=== PATIENT | male | born 1955 | race Caucasian/White ===

== ENCOUNTER 2022-02-03 15:19 | Inpatient (IN) | payer OTHER, SELFPAY ==
--- NOTE | ~2022-02-03 | CT_ITS ---
EXAMINATION: CT CHEST WITHOUT CONTRAST CLINICAL INFORMATION: Fall. Abnormal chest x-ray. COMPARISON: Previous chest x-ray from earlier the same day TECHNIQUE: Multidetector volumetric CT imaging of the chest was done. Axial MIP volume rendering provided. Sagittal and coronal reformatted images were obtained. This CT examination was performed using dose optimization techniques as appropriate, variously including the following: *Automated exposure control *Adjustment of mA and/or kV according to patient size (this includes techniques or standardized protocols for targeted exams where dose is matched to indication/reason for exam; i.e. extremities or head) *Use of iterative reconstruction technique DLP: 290 mGy-cm FINDINGS: CODING SPEC: Cavitary lesion right upper lobe LUNGS: There is a 5 x 8 x 8 cm cavitary lesion in the posterior segment of the right upper lobe. This has more peripheral consolidation and groundglass attenuation. There are adjacent semisolid nodules in the more anterior right upper lobe, largest measuring 1 cm. There are smaller semisolid nodules in the right middle and right lower lobes. The lungs are otherwise clear. MEDIASTINUM: There are no enlarged mediastinal lymph nodes. The heart does not appear enlarged. There is mild coronary artery calcification. There is no pericardial effusion. PLEURA: There is no pleural effusion. No pleural mass or thickening. AXILLA: No lymphadenopathy. UPPER ABDOMEN: Unremarkable. OSSEOUS STRUCTURES: There are degenerative changes of the spine. No fracture. CT/CT chest wo con IMPRESSION: 5 x 8 x 8 cm cavitary lesion in the posterior segment of the right upper lobe. Multiple smaller semisolid right lung nodules. Infectious, inflammatory and neoplastic processes should be considered. In particular, TB should be excluded. Fleischner guidelines were followed.
--- NOTE | ~2022-02-03 | CT_ITS ---
EXAMINATION: CT ABDOMEN AND PELVIS WITHOUT CONTRAST CLINICAL INFORMATION: Elevated liver function tests and fever. History of fall. COMPARISON: None TECHNIQUE: Multidetector volumetric imaging was performed from the superior aspect of the liver through the pubic symphysis. Sagittal and coronal reformatted images were obtained on the technologist's workstation. This CT examination was performed using dose optimization techniques as appropriate, variously including the following: *Automated exposure control *Adjustment of mA and/or kV according to patient size (this includes techniques or standardized protocols for targeted exams where dose is matched to indication/reason for exam; i.e. extremities or head) *Use of iterative reconstruction technique DLP: 601 mGy-cm FINDINGS: LIVER, GALLBLADDER, AND BILIARY TREE: The liver is normal in size, shape, and attenuation. No focal hepatic lesion or biliary ductal dilatation is present. The gallbladder is unremarkable with no evidence of radiopaque gallstones, gallbladder wall thickening, or obvious pericholecystic inflammatory changes. PANCREAS: Unremarkable. SPLEEN: Unremarkable. ADRENAL GLANDS: Unremarkable. KIDNEYS AND URETERS: The kidneys are normal in size, shape, and attenuation. No hydronephrosis, hydroureter, or calculi seen. No perinephric stranding. BLADDER: Unremarkable. GASTROINTESTINAL TRACT: The small and large bowel are otherwise unremarkable. The appendix is unremarkable. ABDOMINAL WALL: There is a small umbilical hernia containing fat. LYMPH NODES: Normal. VASCULAR: Unremarkable. PELVIC VISCERA: The prostate gland is slightly enlarged measuring 4 x 5 cm. OSSEOUS STRUCTURES: There are degenerative changes of the spine. There is ossification seen in the left iliopsoas tendon. CT/CT abdomen pelvis wo con IMPRESSION: No acute findings. Slightly enlarged prostate gland. Fleischner guidelines were followed.
--- NOTE | ~2022-02-03 | XR_ITS ---
EXAMINATION: XR CHEST CLINICAL INFORMATION: Fall COMPARISON: Previous chest x-ray October 2015 TECHNIQUE: Frontal view of the chest was obtained. FINDINGS: The cardiac and mediastinal contours are normal. There is a 9 cm cavitary lesion in the right upper lobe. The lungs are otherwise clear. There is no pleural effusion or pneumothorax. There are degenerative changes of the spine. XR/XR chest 1V IMPRESSION: 9 cm cavitary lesion in the right upper lobe. Differential would include infectious, inflammatory and neoplastic process.
--- NOTE | ~2022-02-03 | CT_ITS ---
EXAMINATION: CT ANGIOGRAM OF THE CHEST WITH AND WITHOUT CONTRAST (CT PULMONARY ANGIOGRAM FOR PE) CLINICAL INFORMATION: Reason for Exam PAIN, elevated ddimer COMPARISON: Previous chest x-ray and chest CT from yesterday TECHNIQUE: Prior to contrast administration, noncontrast localization images were obtained. Subsequently, multidetector volumetric imaging was performed from the thoracic inlet to below the diaphragms following the administration of 65 mL Omnipaque 350 intravenous contrast. No contrast reaction reported Sagittal, coronal, and MIP oblique sagittal reformatted images were obtained on the CT workstation, uploaded to PACS, and reviewed. This CT examination was performed using dose optimization techniques as appropriate, variously including the following: *Automated exposure control *Adjustment of mA and/or kV according to patient size (this includes techniques or standardized protocols for targeted exams where dose is matched to indication/reason for exam; i.e. extremities or head) *Use of iterative reconstruction technique Total exam dose-length product 575 mGy-cm FINDINGS: QUALITY OF STUDY/CONTRAST BOLUS: Satisfactory. PULMONARY ARTERIES: There is a solitary small subsegmental right upper lobe pulmonary embolism for example sagittal reconstructed image 77. No other pulmonary embolism is seen. The pulmonary arteries are normal in size. THORACIC AORTA: No aneurysm or dissection. LUNG: There is a large cavitary lesion in the posterior segment of the right upper lobe. This has peripheral consolidation and groundglass attenuation. There are small semisolid nodules in the more anterior right upper lobe and in the right middle and right lower lobes. This does not appear appreciably changed from yesterday's exam. The left lung is clear. There is mild paraseptal emphysema. PLEURA: New small right pleural effusion. No left pleural effusion or pneumothorax. MEDIASTINUM: Normal heart size. No pericardial effusion. No hilar or mediastinal lymphadenopathy. No evidence of septal bowing or right heart strain. CHEST WALL/AXILLA: No axillary or internal mammary lymphadenopathy. OSSEOUS STRUCTURES: No acute or suspicious osseous abnormality. Degenerative changes of the spine. UPPER ABDOMEN: Unremarkable. No reflux of contrast into the hepatic veins to suggest elevated right heart pressures. CT/CT angio chest PE protocol IMPRESSION: Small solitary subsegmental pulmonary embolism in the right upper lobe adjacent to the cavitary lesion. No change in large cavitary lesion in the posterior segment of the right upper lobe with peripheral consolidation and groundglass attenuation. No change in small semisolid right pulmonary nodules. New small right pleural effusion.. VTE: positive Findings are communicated to Dr. Webb by telephone on 02/04/2022 at 12:58 PM
--- NOTE | ~2022-02-03 | US_ITS ---
EXAMINATION: US ABDOMEN LIMITED CLINICAL INFORMATION: Elevated liver function tests and fever. COMPARISON: Previous CT of the abdomen and pelvis from earlier the same day TECHNIQUE: Real-time imaging of the gallbladder FINDINGS: The gallbladder is normal in size. There is a 5 mm echogenic density adjacent to the gallbladder wall that does not move or shadow probably representing a small gallbladder wall polyp. No definite gallstones are seen. The gallbladder wall is normal. There is no pericholecystic fluid. The radiology ct technologist reports the patient is tender over the gallbladder. The common bile duct is normal in caliber measuring 0.5 cm. US/US abdomen limited IMPRESSION: Probable small gallbladder wall polyp.
--- NOTE | 2022-02-03 15:33 | ECG_ITS ---
Test Reason : SEPSIS Blood Pressure : / mmHG Vent. Rate : 102 BPM Atrial Rate : 102 BPM P-R Int : 140 ms QRS Dur : 140 ms QT Int : 372 ms P-R-T Axes : 059 048 022 degrees QTc Int : 484 ms Sinus tachycardia Right bundle branch block Abnormal ECG When compared with ECG of 09-NOV-2015 04:53, Right bundle branch block is now Present Referred By: Nabila Galeana Electronically Signed By:BETZAIDA ARMSTRONG
[2022-02-03 15:34] VITALS: BP 112/70; BP 127/73; PULSE 110; PULSE 120; RESP 29; TEMP 38.8; O2SAT 97; BMI 27.3
--- NOTE | 2022-02-03 15:35 | ED.FALL ---
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 Patient lives home alone with [employer] service, patient was found on the ground soaked in feces and urine seems patient had a mechanical fall last night and could not get himself up remained on the ground all night the next morning was found by [employer], patient decline headache, no neck pain, no CP, no SOB, no abdominal pain, no lower extremities pain or deformity. Patient is a poor historian history was obtained from EMS/[employer]. Patient declined subjective fever, no coughing, no urinary symptoms. Patient meeting criteria for SIRS which concerning of infectious process. Related Data Home Medications Medication Instructions Recorded Confirmed aspirin 81 mg tablet,delayed 1 tab PO BEDTIME 02/03/22 02/03/22 release atorvastatin 10 mg tablet 1 tab PO BEDTIME 02/03/22 02/03/22 cholecalciferol (vitamin D3) 50 1 cap PO DAILY 02/03/22 02/03/22 mcg (2,000 unit) capsule (Vitamin D3) docusate sodium 100 mg capsule 1 cap PO BID 02/03/22 02/03/22 glipizide 10 mg tablet 1 tab PO BID 02/03/22 02/03/22 lisinopril 5 mg tablet 1 tab PO DAILY 02/03/22 02/03/22 metformin 1,000 mg tablet 1 tab PO AC 02/03/22 02/03/22 omeprazole 20 mg capsule,delayed 1 cap PO DAILY 02/03/22 02/03/22 release polyvinyl alcohol 1.4 % eye drops 1 drp ophthalmic (eye) QID PRN Pain 02/03/22 02/03/22 sitagliptin 100 mg tablet (Januvia) 1 tab PO DAILY 02/03/22 02/03/22 tamsulosin 0.4 mg capsule 2 cap PO BEDTIME 02/03/22 02/03/22 tramadol 50 mg tablet 1 tab PO QID PRN severe pain 02/03/22 02/03/22 Allergies Allergy/AdvReac Type Severity Reaction Status Date / Time No Known Allergies Allergy Unverified 03/08/20 16:45 Review of Systems Review of Systems: All other systems are reviewed and are negative Constitutional: Reports as per HPI and Reports no additional constitutional complaints Eyes: Reports as per HPI and Reports no additional eye complaints Reports system reviewed and no additional complaints, except as documented Cardiovascular: Reports as per HPI and Reports no additional cardiovascular complaints Respiratory: Reports as per HPI and Reports no additional respiratory complaints Gastrointestinal: Reports as per HPI and Reports no additional gastrointestinal complaints Genitourinary: Reports no additional female genitourinary complaints Musculoskeletal: Reports no additional musculoskeletal complaints Skin/Breast: Reports system reviewed and no additional complaints, except as docu Psychiatric: Reports no additional psychiatric complaints Endocrine: Reports no additional endocrine complaints Hematologic/Lymphatic: Reports no additional hematologic/lymphatic complaints Allergic/Immunologic: Reports no additional allergic/immunologic complaints Reports system reviewed and no additional complaints, except as documented and Reports Abnormal speech present [facility] Social History Social History Advance Directives: No Advance Directives Information Provided: No Physical Exam Vital Signs: Vital Signs: Last Vital Signs Temp 101 F H 02/03/22 18:32 Pulse 108 H 02/03/22 18:32 Resp 18 02/03/22 18:32 BP 133/73 02/03/22 18:32 Pulse Ox 97 02/03/22 18:32 O2 Del Method 02/03/22 18:32 BMI result Body Mass Index 27.3 Vital signs have been reviewed as appeared to be correct. Blood pressure normal. Heart rate normal. Respiration rate normal. Temperature normal. Oxygen saturation normal. Appearance: Alert. Oriented X3. No acute distress. Head: Normal external exam. Normocephalic. Atraumatic. No Estevez signs noted. No raccoon eyes noted Eyes: PERRLA. EOMI. Conjunctiva and sclera normal. Eyelids normal. ENT: TM's Normal. Pharynx normal. Uvula midline. Moist mucous membranes. No trismus noted. No drooling noted. No muffled voice noted. Neck: Normal inspection. Neck supple. FROM. No adenopathy. Thyroid Normal. No meningeal signs. No neck mass noted. CVS: Normal heart rate and rhythm. Heart sound normal. No murmurs noted. Pulses normal throughout. Respiratory: No respiratory distress. Painless inspiration. Breath sounds normal. No wheezes/rales/rhonchi noted. Chest nontender. No accessory muscle usage noted or decreased air movement noted. Area of ecchymosis on the right chest wall which is not tender, hip no deformity under. Abdomen: Soft and nontender. Bowel sounds normal in all 4 quadrants. No distention noted. No organomegaly noted. No visible injury noted. Back: No CVA tenderness. Full range of motion noted. Skin: Skin warm and dry. Normal skin color. Normal skin turgor. No rashes/lesions/lacerations noted. Extremities: No lower extremity edema. Extremities exhibit normal range of motion. Extremities nontender. Neuro: Oriented X 3. Cranial nerve exam: II-XII are grossly intact No motor deficit. No sensory deficit. Reflexes normal. Course Course Course Narrative: 66-year-old male presented after found on the ground, patient initially met SIRS criteria. 1. Cavitary lesion on the right upper lung concerning of TB or staph pneumonia. Consider air bone infection isolation with negative Room pressure, cover with Zosyn and vancomycin for possible staph pneumonia.. 2. Patient meet criteria for sepsis. 3. UTI consider ceftriaxone coverage. 4. Rhabdomyolysis consider IV hydration. MDM - Fall Lab Data Attestation: I reviewed the patient's lab results. Result diagrams: 02/03/22 16:18 02/03/22 16:18 Labs: Lab Results 02/03/22 02/03/22 02/03/22 Range/Units 16:18 16:18 16:18 WBC 16.4 H (4.8-10.8) X10*3/uL RBC 4.71 (4.60-5.80) X10*6/uL Hgb 14.1 (14.0-18.0) g/dl Hct 40.2 L (42.0-52.0) % MCV 85.4 (80.0-98.0) fL MCH 29.9 (27.0-33.0) pg MCHC 35.1 (31.0-36.0) g/dl RDW 12.6 (11.0-16.0) % Plt Count 238 (160-400) X10*3/uL MPV 10.4 (9.4-12.4) fL Immature Gran % (Auto) Cancelled Neut % (Auto) Cancelled Lymph % (Auto) Cancelled Conway % (Auto) Cancelled Eos % (Auto) Cancelled Baso % (Auto) Cancelled Lymph # (Auto) Cancelled Conway # (Auto) Cancelled Eos # (Auto) Cancelled Baso # (Auto) Cancelled Abs Immat Gran (auto) Cancelled Absolute Neuts (auto) Cancelled Absolute Nucleated RBC 0.000 (0.0-0.012) X10*3/uL Nucleated RBC % (auto) 0.0 (0.0-0.2) /100WBC Neutrophils % (Manual) 63 (45-73) % Band Neutrophils % 21 H (3-5) % Lymphocytes % (Manual) 8 L (20-40) % Monocytes % (Manual) 4 (2-11) % Metamyelocytes % 4 % Abs Neuts (Manual) 13.8 H (2.0-8.3) X10*3/uL Lymphocytes # (Manual) 1.3 (1.2-4.9) X10*3/uL Monocytes # (Manual) 0.7 (0.1-1.2) X10*3/uL Metamyelocytes # 0.7 X10*3/uL Platelet Estimate NORMAL (NORMAL) Giant Platelets PRESENT Plt Morphology Comment NOTED RBC Morphology NORMAL Sodium 132 L (135-145) mmol/L Potassium 3.8 (3.3-5.1) mmol/L Chloride 93 L (96-108) mmol/L Carbon Dioxide 25 (22-29) mmol/L Anion Gap 18 (12-20) BUN 23 H (9-16) mg/dL Creatinine 1.40 (0.5-1.4) mg/dL Estim Creat Clear Calc 50.8 Estimated GFR 51 Random Glucose 324 H (60-115) mg/dL Calcium 8.9 (8.4-10.2) mg/dL Total Bilirubin 1.7 H (0.0-1.0) mg/dL Direct Bilirubin 0.9 H (0.0-0.5) mg/dL AST 38 H (5-37) U/L ALT 23 (0-40) U/L Alkaline Phosphatase 90 (39-117) U/L Total Creatine Kinase 1236 H (38-174) U/L Troponin I High Sens 15.7 (<3.5-35.0) ng/L B-Natriuretic Peptide (<100) pg/mL Total Protein 7.5 (6.5-8.0) g/dL Albumin 4.0 (3.5-5.0) g/dL Lipase 5 L (8-78) U/L Urine Color Urine Appearance Urine pH (5.0-8.0) Ur Specific Gary (1.005-1.025) Urine Protein (NEG-TRACE) MG/DL Urine Glucose (UA) (NEG) MG/DL Urine Ketones (NEG) MG/DL Urine Blood (NEG) Urine Nitrite (NEG) Ur Leukocyte Esterase (Negative) Urine RBC (0) /HPF Urine WBC (0-4) /HPF Ur Squamous Epith Cells /LPF Urine Bacteria /LPF COVID-19 ([facility]DO) (Negative) COVID-19 Clin Com 02/03/22 02/03/22 02/03/22 Range/Units 16:18 16:18 17:51 WBC (4.8-10.8) X10*3/uL RBC (4.60-5.80) X10*6/uL Hgb (14.0-18.0) g/dl Hct (42.0-52.0) % MCV (80.0-98.0) fL MCH (27.0-33.0) pg MCHC (31.0-36.0) g/dl RDW (11.0-16.0) % Plt Count (160-400) X10*3/uL MPV (9.4-12.4) fL Immature Gran % (Auto) Neut % (Auto) Lymph % (Auto) Conway % (Auto) Eos % (Auto) Baso % (Auto) Lymph # (Auto) Conway # (Auto) Eos # (Auto) Baso # (Auto) Abs Immat Gran (auto) Absolute Neuts (auto) Absolute Nucleated RBC (0.0-0.012) X10*3/uL Nucleated RBC % (auto) (0.0-0.2) /100WBC Neutrophils % (Manual) (45-73) % Band Neutrophils % (3-5) % Lymphocytes % (Manual) (20-40) % Monocytes % (Manual) (2-11) % Metamyelocytes % % Abs Neuts (Manual) (2.0-8.3) X10*3/uL Lymphocytes # (Manual) (1.2-4.9) X10*3/uL Monocytes # (Manual) (0.1-1.2) X10*3/uL Metamyelocytes # X10*3/uL Platelet Estimate (NORMAL) Giant Platelets Plt Morphology Comment RBC Morphology Sodium (135-145) mmol/L Potassium (3.3-5.1) mmol/L Chloride (96-108) mmol/L Carbon Dioxide (22-29) mmol/L Anion Gap (12-20) BUN (9-16) mg/dL Creatinine (0.5-1.4) mg/dL Estim Creat Clear Calc Estimated GFR Random Glucose (60-115) mg/dL Calcium (8.4-10.2) mg/dL Total Bilirubin (0.0-1.0) mg/dL Direct Bilirubin (0.0-0.5) mg/dL AST (5-37) U/L ALT (0-40) U/L Alkaline Phosphatase (39-117) U/L Total Creatine Kinase (38-174) U/L Troponin I High Sens (<3.5-35.0) ng/L B-Natriuretic Peptide 33 (<100) pg/mL Total Protein (6.5-8.0) g/dL Albumin (3.5-5.0) g/dL Lipase (8-78) U/L Urine Color YELLOW Urine Appearance HAZY Urine pH 5.5 (5.0-8.0) Ur Specific Gary >= 1.030 H (1.005-1.025) Urine Protein 30 (1+) H (NEG-TRACE) MG/DL Urine Glucose (UA) >=1000 H (NEG) MG/DL Urine Ketones 15 (NEG) MG/DL Urine Blood Large (3+) H (NEG) Urine Nitrite Negative (NEG) Ur Leukocyte Esterase Trace H (Negative) Urine RBC 1-4 (0) /HPF Urine WBC 50-75 H (0-4) /HPF Ur Squamous Epith Cells 1+ /LPF Urine Bacteria 3+ /LPF COVID-19 ([facility]VALDO) Negative (Negative) COVID-19 Clin Com See Note Imaging Data Gallbladder ultrasound: Attestation: I personally reviewed and interpreted this imaging study as follows: Radiologist's impression: Probable small gallbladder wall polyp. Chest x-ray: Attestation: I personally reviewed and interpreted this imaging study as follows: Radiologist's impression: 9 cm cavitary lesion in the right upper lobe. Differential would include infectious, inflammatory and neoplastic process. ? Abdomen and pelvis CT: Attestation: I personally reviewed and interpreted this imaging study as follows: Radiologist's impression: No acute findings. Slightly enlarged prostate gland. CT scan - chest: Attestation: I personally reviewed and interpreted this imaging study as follows: Radiologist's impression: 5 x 8 x 8 cm cavitary lesion in the posterior segment of the right upper lobe. Multiple smaller semisolid right lung nodules. Infectious, inflammatory and neoplastic processes should be considered. In particular, TB should be excluded. ? Critical Care Time Critical Care Time Critical Care Time: Yes Total Critical Care Time: 60 Attestation: I spent 60 minutes providing critical care service to the patient, this including time spent at the bedside to evaluate the patient, reassess the patient, monitoring vital signs, review labs, and radiographic studies, counseling the patient/family, discussing the case with consultants, disposition the patient. Discharge Plan Discharge Clinical Impression: Rhabdomyolysis, Sepsis, Pneumonia, Acute UTI Patient Disposition: Admitted As Inpatient
[2022-02-03] MEDS: 0.9 % Sodium Chloride 2,052 ML 2052 ML IV (16:10)
[2022-02-03 16:23] VITALS: BP 106/63; PULSE 105; RESP 16; O2SAT 97
[2022-02-03 16:28] LABS: Hemoglobin 14.1 g/dl (14.0-18.0)
[2022-02-03] MEDS: Piperacillin Sodium/Tazobactam 3.375 GM in 0.9 % Sodium Chloride 50 ML IV ×2 (16:32→23:55)
[2022-02-03 16:33] LABS: Hematocrit 40.2 % (42.0-52.0); Mean Corpuscular HGB Conc 35.1 g/dl (31.0-36.0); Mean Corpuscular Hemoglobin 29.9 pg (27.0-33.0); Mean Corpuscular Volume 85.4 fL (80.0-98.0); Mean Platelet Volume 10.4 fL (9.4-12.4); Platelet Count 238 X10*3/uL (160-400); Red Blood Count 4.71 X10*6/uL (4.60-5.80); Red Cell Distribution Width 12.6 % (11.0-16.0); White Blood Count 16.4 X10*3/uL (4.8-10.8)
--- NOTE | 2022-02-03 16:37 | PC.NURSE ---
patient assessed with the use of medical translator . alert to self and place . pearrla , sclera yellow . skin warm dry and appears dusky . bruising noted under right breast area from patient reported fall . heart rate tachycardic at 107 . lungs clear . abdomen soft non tender . positive bowel sounds throughout abdomen . 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 vitals placed patient within sepsis alert which was called by provider at 1556 . all labs drawn and sent including germain sets of cultures . EKG obtained . Fluids and ABX hung as ordered . patient aware of plan of care .
[2022-02-03 16:48] LABS: COVID-19 Test Negative (Negative)
[2022-02-03 16:51] LABS: B Type Natriuretic Peptide 33 pg/mL (<100); Troponin-I High Sensitivity 15.7 ng/L (<3.5-35.0)
[2022-02-03 16:52] LABS: Alanine Aminotransferase 23 U/L (0-40); Alkaline Phosphatase 90 U/L (39-117); Anion Gap 18 (12-20); Aspartate Amino Transferase 38 U/L (5-37); Bilirubin Direct 0.9 mg/dL (0.0-0.5); Bilirubin Total 1.7 mg/dL (0.0-1.0); Blood Urea Nitrogen 23 mg/dL (9-16); Calcium 8.9 mg/dL (8.4-10.2); Carbon Dioxide 25 mmol/L (22-29); Chloride 93 mmol/L (96-108); Creatinine Clr Calc Pharmacy 50.8; Estimated Glomerular Filt Rate 51; Glucose Random 324 mg/dL (60-115); Lipase 5 U/L (8-78); Potassium 3.8 mmol/L (3.3-5.1); Sodium 132 mmol/L (135-145); Total Protein 7.5 g/dL (6.5-8.0)
[2022-02-03 17:07] LABS: Neutrophils Percent Manual 63 % (45-73)
[2022-02-03 17:10] LABS: Band Neutrophils Percent 21 % (3-5); Lymphocytes Absolute Manual 1.3 X10*3/uL (1.2-4.9); Lymphocytes Percent Manual 8 % (20-40); Metamyelocytes Absolute 0.7 X10*3/uL; Metamyelocytes Percent 4 %; Monocytes Absolute Manual 0.7 X10*3/uL (0.1-1.2); Monocytes Percent Manual 4 % (2-11); Neutrophils Absolute Manual 13.8 X10*3/uL (2.0-8.3)
[2022-02-03 17:11] LABS: Giant Platelet PRESENT; Platelet Estimate NORMAL (NORMAL); Platelet Morphology Comment NOTED; RBC Morphology NORMAL
[2022-02-03 17:56] LABS: Appearance Urine HAZY; Color Urine YELLOW; Glucose Urine UA >=1000 MG/DL (NEG); Leukocyte Esterase Urine Trace (Negative); Nitrite Urine Negative (NEG); PH 5.5 (5.0-8.0); Specific Gravity - Urine >= 1.030 (1.005-1.025); Urine Blood Large (3+) (NEG); Urine Ketones 15 MG/DL (NEG); Urine Protein 30 (1+) MG/DL (NEG-TRACE)
[2022-02-03 18:02] LABS: Bacteria Urine 3+ /LPF
[2022-02-03 18:03] LABS: Squamous Epithelial Cell Urine 1+ /LPF
[2022-02-03 18:06] LABS: WBC Urine 50-75 /HPF (0-4)
[2022-02-03] MEDS: Acetaminophen 325 MG TABLET 650 MG PO (18:25)
--- NOTE | 2022-02-03 18:31 | PHA.MEDREC ---
Pharmacy Consult ? Medication Reconciliation Pharmacy has completed the medication reconciliation. Patient does not know medications. Use Med[facility] at [facility]. Contacted Pharmacy for updated list. Estephania Lorenzo, ZohraD
[2022-02-03 18:32] VITALS: BP 133/73; PULSE 108; RESP 18; TEMP 38.3; O2SAT 97
--- NOTE | 2022-02-03 18:44 | PC.NURSE ---
pt's sister twan ([phone]) [place] [facility] [place] was updated on pt status.
--- NOTE | 2022-02-03 21:10 | PM.IMHP ---
History of Present Illness Date of Service: 02/03/22 Chief Complaint: Gen weakness 66-year-old male with a past medical history of hypertension, hyperlipidemia, diabetes, BPH, chronic bilateral lower extremity weakness secondary to work related injury- wheelchair-bound presented to the hospital today with a chief complaint of generalized weakness. Patient reported that over the past 1-2 weeks he has been having generalized weakness, has not been eating well. Denies any fevers. Reports having dry cough. Denies any abdominal pain nausea vomiting or urinary frequency urgency or dysuria. Denies any chest pain or palpitations. Denies any recent travel or sick contacts. Patient denies any night sweats or weight loss. Mentions that yesterday he was trying to get to the bathroom, fell down and was not able to get up and stayed on the floor all night. Denies any head strike or loss of consciousness. Denies any back pain or hip pain. Mentions that he has a home [employer] services. Review of all other systems is negative except mentioned above ER course: Per ER team patient's exam was benign; CT abdomen showed no acute findings except for a large prostate; CT chest showed 5 into 18-8 cm cavitary lesion in the posterior segment of the right upper lobe. Multiple smaller semi-solid right lung nodules. Infectious versus neoplastic. On labs noted to have mildly elevated leukocytosis, mildly elevated CPK, abnormal urinalysis consistent with UTI. Patient was given empiric IV antibiotics. Admitted to the hospital for further management. [facility] Pertinent family history: Diabetes Social History Housing: Apartment Alcohol intake: unknown Patient Tobacco Use Status: Tobacco use Unknown service: No Current occupational status: disabled Meds Allergies Allergy/AdvReac Type Severity Reaction Status Date / Time No Known Allergies Allergy Unverified 03/08/20 16:45 Active Medications: Current Medications Acetaminophen (Acetaminophen 325 Mg Tablet) 650 mg PO Q6H PRN PRN Reason: Pain, Mild (Pain Scale 1-3) Aspirin (Aspirin Enteric Coated 81 Mg Tablet.Dr) 81 mg PO BEDTIME JULY Atorvastatin Calcium (Atorvastatin Calcium 10 Mg Tablet) 10 mg PO BEDTIME JULY Dextrose (Dextrose 50 % 25 Gm/50 Ml Syringe) 25 gm IVPUSH Q15M PRN; Protocol PRN Reason: per Hypoglycemia Standing Ord. Docusate Sodium (Docusate Sodium 100 Mg Capsule) 100 mg PO BID [facility] Enoxaparin Sodium (Enoxaparin Sodium 40 Mg/0.4 Ml Syringe) 40 mg SUBCUT Q24H [facility] Glucose (Glucose Gel 15 Gm Gel..Gram.) 15 gm PO Q15M PRN; Protocol PRN Reason: per Hypoglycemia Standing Ord. Vancomycin HCl 1,000 mg/ (Sodium Chloride) 270 mls @ 270 mls/hr IV Q12H [facility] Piperacillin Sod/Tazobactam (Sod 3.375 gm/ Sodium Chloride) 50 mls @ 100 mls/hr IV Q6H [facility] Insulin Human Lispro (Insulin Lispro 100 Unit/Ml 3 Ml Vial) 0 unit SUBCUT QIDACHS [facility]; Protocol Lisinopril (Lisinopril 5 Mg Tablet) 5 mg PO DAILY [facility]; Protocol Melatonin (Melatonin 3 Mg Tablet) 6 mg PO BEDTIME PRN PRN Reason: Insomnia Omeprazole (Omeprazole 20 Mg Capsule.Dr) 20 mg PO DAILY@0630 [facility] Pharmacy Consult (Consult Rx Perform Med Rec) 1 each MISCELLANE ONCE PRN PRN Reason: Consult order Pharmacy Consult (Consult Rx Vancomycin Dosing) 1 each MISCELLANE DAILY PRN PRN Reason: Consult order Senna (Sennosides 8.6 Mg Tablet) 17.2 mg PO BEDTIME PRN PRN Reason: Constipation Sodium Chloride (0.9 % Sodium Chloride Flush 3 Ml Syringe) 3 ml IVFLUSH QSHIFT [facility] Tamsulosin HCl (Tamsulosin Hcl 0.4 Mg Capsule) 0.8 mg PO BEDTIME [facility] Tramadol HCl (Tramadol Hcl 50 Mg Tablet) 50 mg PO QID PRN PRN Reason: severe pain Vitamin D (Cholecalciferol (Vitamin D3) 25 Mcg Tablet) 50 mcg PO DAILY [facility] Home Medications Medication Instructions Recorded Confirmed Last Taken Type aspirin 81 mg tablet,delayed 1 tab PO BEDTIME 02/03/22 02/03/22 Unknown History release atorvastatin 10 mg tablet 1 tab PO BEDTIME 02/03/22 02/03/22 Unknown History cholecalciferol (vitamin D3) 50 1 cap PO DAILY 02/03/22 02/03/22 Unknown History mcg (2,000 unit) capsule (Vitamin D3) docusate sodium 100 mg capsule 1 cap PO BID 02/03/22 02/03/22 Unknown History glipizide 10 mg tablet 1 tab PO BID 02/03/22 02/03/22 Unknown History lisinopril 5 mg tablet 1 tab PO DAILY 02/03/22 02/03/22 Unknown History metformin 1,000 mg tablet 1 tab PO AC 02/03/22 02/03/22 Unknown History omeprazole 20 mg capsule,delayed 1 cap PO DAILY 02/03/22 02/03/22 Unknown History release polyvinyl alcohol 1.4 % eye drops 1 drp ophthalmic (eye) QID PRN Pain 02/03/22 02/03/22 Unknown History sitagliptin 100 mg tablet (Januvia) 1 tab PO DAILY 02/03/22 02/03/22 Unknown History tamsulosin 0.4 mg capsule 2 cap PO BEDTIME 02/03/22 02/03/22 Unknown History tramadol 50 mg tablet 1 tab PO QID PRN severe pain 02/03/22 02/03/22 Unknown History Physical Exam Vital Signs and Narrative: Vital Signs: Last Vital Signs Temp 101 F H 02/03/22 18:32 Pulse 108 H 02/03/22 18:32 Resp 18 02/03/22 18:32 BP 133/73 02/03/22 18:32 Pulse Ox 97 02/03/22 18:32 O2 Del Method 02/03/22 18:32 BMI result Body Mass Index 27.3 Gen: Appears be in no acute distress HEENT: NCAT, Moist mucosa. Pulmonary: Mildly coarse breath sounds. CVS: Normal S1-S2 Abdomen: BS+, Soft, Nontender Extremities: Warm well perfused Neuro: Alert and awake. Oriented x3; sensations equal bilaterally; strength 2/5 in bilateral lower extremities-chronic per patient. Results Labs CBC and Chem 7: 02/05/22 08:53 02/08/22 08:09 Labs: Laboratory Results - last 24 hr 02/03/22 02/03/22 02/03/22 16:18 16:18 16:18 MCV 85.4 MCH 29.9 MCHC 35.1 RDW 12.6 Plt Count 238 MPV 10.4 Immature Gran % (Auto) Cancelled Neut % (Auto) Cancelled Lymph % (Auto) Cancelled Giles % (Auto) Cancelled Eos % (Auto) Cancelled Baso % (Auto) Cancelled Lymph # (Auto) Cancelled Giles # (Auto) Cancelled Eos # (Auto) Cancelled Baso # (Auto) Cancelled Abs Immat Gran (auto) Cancelled Absolute Neuts (auto) Cancelled Absolute Nucleated RBC 0.000 Nucleated RBC % (auto) 0.0 Neutrophils % (Manual) 63 Band Neutrophils % 21 H Lymphocytes % (Manual) 8 L Monocytes % (Manual) 4 Metamyelocytes % 4 Abs Neuts (Manual) 13.8 H Lymphocytes # (Manual) 1.3 Monocytes # (Manual) 0.7 Metamyelocytes # 0.7 Platelet Estimate NORMAL Giant Platelets PRESENT Plt Morphology Comment NOTED RBC Morphology NORMAL Anion Gap 18 Estim Creat Clear Calc 50.8 Estimated GFR 51 Random Glucose 324 H Calcium 8.9 Total Bilirubin 1.7 H Direct Bilirubin 0.9 H AST 38 H ALT 23 Alkaline Phosphatase 90 Total Creatine Kinase 1236 H B-Natriuretic Peptide 33 Total Protein 7.5 Albumin 4.0 Lipase 5 L Urine Color Urine Appearance Urine pH Ur Specific Kopperl Urine Protein Urine Glucose (UA) Urine Ketones Urine Blood Urine Nitrite Ur Leukocyte Esterase Urine RBC Urine WBC Ur Squamous Epith Cells Urine Bacteria COVID-19 ([facility]) COVID-19 Clin Com 02/03/22 02/03/22 16:18 17:51 MCV MCH MCHC RDW Plt Count MPV Immature Gran % (Auto) Neut % (Auto) Lymph % (Auto) Giles % (Auto) Eos % (Auto) Baso % (Auto) Lymph # (Auto) Giles # (Auto) Eos # (Auto) Baso # (Auto) Abs Immat Gran (auto) Absolute Neuts (auto) Absolute Nucleated RBC Nucleated RBC % (auto) Neutrophils % (Manual) Band Neutrophils % Lymphocytes % (Manual) Monocytes % (Manual) Metamyelocytes % Abs Neuts (Manual) Lymphocytes # (Manual) Monocytes # (Manual) Metamyelocytes # Platelet Estimate Giant Platelets Plt Morphology Comment RBC Morphology Anion Gap Estim Creat Clear Calc Estimated GFR Random Glucose Calcium Total Bilirubin Direct Bilirubin AST ALT Alkaline Phosphatase Total Creatine Kinase B-Natriuretic Peptide Total Protein Albumin Lipase Urine Color YELLOW Urine Appearance HAZY Urine pH 5.5 Ur Specific Kopperl >= 1.030 H Urine Protein 30 (1+) H Urine Glucose (UA) >=1000 H Urine Ketones 15 Urine Blood Large (3+) H Urine Nitrite Negative Ur Leukocyte Esterase Trace H Urine RBC 1-4 Urine WBC 50-75 H Ur Squamous Epith Cells 1+ Urine Bacteria 3+ COVID-19 ([facility]) Negative COVID-19 Clin Com See Note Imaging Radiologist's Impressions: Impressions Chest X-Ray 02/03/22 17:16 IMPRESSION: 9 cm cavitary lesion in the right upper lobe. Differential would include infectious, inflammatory and neoplastic process. Abdomen/Pelvis CT 02/03/22 17:27 IMPRESSION: No acute findings. Slightly enlarged prostate gland. Fleischner guidelines were followed. Chest CT 02/03/22 17:27 IMPRESSION: 5 x 8 x 8 cm cavitary lesion in the posterior segment of the right upper lobe. Multiple smaller semisolid right lung nodules. Infectious, inflammatory and neoplastic processes should be considered. In particular, TB should be excluded. Fleischner guidelines were followed. Abdomen Ultrasound 02/03/22 17:33 IMPRESSION: Probable small gallbladder wall polyp. Assessment and Plan (1) Acute UTI: Status: Acute (2) Cavitary lesion of lung: Status: Acute Plan 66-year-old male with a past medical history of hypertension, hyperlipidemia, diabetes, BPH, chronic bilateral lower extremity weakness secondary to work related injury- wheelchair-bound presented to the hospital today with a chief complaint of generalized weakness. Noted to have following conditions UTI: Continue ceftriaxone. Follow up cultures. Cavitary lung lesion: Question infectious versus neoplastic. Patient on able precautions to rule out TB. Id consult for further recommendations. Patient mildly hypoxic-placed on supplemental oxygen. D-dimer elevated. Will obtain CT angio chest Multiple pulmonary lung nodules: Will consult Oncology. History of diabetes: Insulin sliding scale . Hold home metformin, citalopram, glipizide. History of BPH: Continue home Flomax History of hypertension/hyperlipidemia: Continue home aspirin, statin, lisinopril DVT prophylaxis: Lovenox Code status: Full code Quality Stroke Does the patient have a stroke diagnosis?: No VTE Prior VTE?: No VTE Risk Level:: Medical - moderate - high VTE Device Contraindication: Treatment Not Indicated VTE Drug Contraindication: N/A - Med Ordered
--- NOTE | 2022-02-03 21:23 | PHA.PROG ---
Admission Date/Time: February 03, 2022 20:27 Indication: Pneumonia Weight in k.647 kg Adjusted body weight in K.6 kg [place] body weight in K.4 kg Obesity Dosing Indication % IBW: 119 % Serum Creatinine - Last 168 Hours 02/03/22 16:18 Creatinine 1.40 Estimated CrCl and GFR - Last 168 Hours 02/03/22 16:18 Estim Creat Clear Calc 50.8 Estimated GFR 51 Vancomycin Loading Dose: 2000 mg Current Vancomycin Dosing Regimen: 1500 mg Q24H Date and Time for next Vancomycin Level to be drawn: 02/06 Pharmacist Comments on Vancomycin Plan: Patient is schedule to receive loading dose vancomycin 2000 mg on 02/03 @ 2200 Maintenance dose vancomycin 1500 mg Q24H is scheduled to start 02/04 @ 2200. Expected AUC 552 with a trough of 16.5. Trough to be drawn prior to 4th dose Pharmacy to monitor renal function daily. Estephania Lorenzo PharmD Vancomycin dosing will take advantage of [employer] as a clinical decision support tool that uses Bayesian modeling to calculate individual patient's pharmacokinetic parameters and forecast the patient's drug concentration time course with the target goal AUC 24 range of 400 - 600 mg/L/hr.
[2022-02-03] MEDS: cefTRIAXone sodium 1 GM in 0.9 % Sodium Chloride 50 ML IV (22:44)
[2022-02-03 22:50] VITALS: BP 136/84; PULSE 100; RESP 24; TEMP 37.2; O2SAT 97
[2022-02-03] MEDS: Atorvastatin Calcium 10 MG TABLET PO (22:56)
[2022-02-03] MEDS: Tamsulosin HCL 0.4 MG CAPSULE 0.8 MG PO (22:56)
[2022-02-03] MEDS: Aspirin Enteric Coated 81 MG TABLET.DR PO (22:56)
[2022-02-03] MEDS: Enoxaparin Sodium 40 MG/0.4 ML SYRINGE SUBCUT (22:58)
[2022-02-03] MEDS: Docusate Sodium 100 MG CAPSULE PO (22:58)
[2022-02-03 23:38] VITALS: BP 129/91; PULSE 108; RESP 19; O2SAT 98
[2022-02-03 23:39] LABS: Glucose, Whole Blood 280 mg/dL (60-115)
[2022-02-03 23:40] LABS: Lactic Acid 1.6 mmol/L (0.5-2.0)
[2022-02-03] MEDS: Insulin Lispro 100 UNIT/ML 3 ML VIAL SUBCUT (23:55)
[2022-02-03 23:59] VITALS: BP 129/91; PULSE 109; RESP 32; TEMP 37.7; O2SAT 97
[2022-02-04] VITALS (11 sets, daily range): BP systolic 87–140; BP diastolic 36–79; PULSE 75–119; RESP 12–31; TEMP 36.7–37.8; O2SAT 94–99
[2022-02-04] MEDS: Acetaminophen 325 MG TABLET 650 MG PO (01:59)
--- NOTE | 2022-02-04 02:24 | PC.NURSE ---
Notified Raul Martínez MD re: pt.'s progressive tachycardia to one-teens and elevated respitatory rate. ordering D-dimer
[2022-02-04] MEDS: 0.9 % Sodium Chloride 1,000 ML 100 ML IVCONT ×2 (02:43→13:37)
--- NOTE | 2022-02-04 02:54 | PC.NURSE ---
Labs collected and sent as ordered
[2022-02-04 02:59] LABS: Hematocrit 33.1 % (42.0-52.0); Hemoglobin 11.9 g/dl (14.0-18.0); Mean Corpuscular Hemoglobin 30.4 pg (27.0-33.0); Mean Corpuscular Volume 84.7 fL (80.0-98.0); Mean Platelet Volume 9.9 fL (9.4-12.4); Platelet Count 199 X10*3/uL (160-400); Red Blood Count 3.91 X10*6/uL (4.60-5.80); Red Cell Distribution Width 12.7 % (11.0-16.0); White Blood Count 11.9 X10*3/uL (4.8-10.8)
[2022-02-04 03:08] LABS: D Dimer High Sensitivity 449 NG/ML
[2022-02-04 03:24] LABS: Lymphocytes Absolute Manual 1.3 X10*3/uL (1.2-4.9); Lymphocytes Percent Manual 11 % (20-40); Metamyelocytes Absolute 0.2 X10*3/uL; Metamyelocytes Percent 2 %; Monocytes Absolute Manual 0.6 X10*3/uL (0.1-1.2); Monocytes Percent Manual 5 % (2-11); Neutrophils Absolute Manual 9.8 X10*3/uL (2.0-8.3); Neutrophils Percent Manual 62 % (45-73)
[2022-02-04 03:26] LABS: Dohle Bodies PRESENT; Large Platelet PRESENT; Platelet Estimate NORMAL (NORMAL); Platelet Morphology Comment NOTED; RBC Morphology NORMAL
[2022-02-04 03:30] LABS: Band Neutrophils Percent 20 % (3-5)
[2022-02-04 03:33] LABS: Anion Gap 16 (12-20); Blood Urea Nitrogen 20 mg/dL (9-16); Calcium 7.8 mg/dL (8.4-10.2); Carbon Dioxide 20 mmol/L (22-29); Chloride 102 mmol/L (96-108); Creatinine Clr Calc Pharmacy 67.2; Estimated Glomerular Filt Rate > 60; Glucose Random 225 mg/dL (60-115); Potassium 3.6 mmol/L (3.3-5.1); Sodium 134 mmol/L (135-145)
[2022-02-04 05:12] LABS: Creatinine Clr Calc Pharmacy 65.9; Estimated Glomerular Filt Rate > 60
[2022-02-04] MEDS: Piperacillin Sodium/Tazobactam 3.375 GM in 0.9 % Sodium Chloride 50 ML IV ×3 (06:33→18:48)
[2022-02-04] MEDS: Omeprazole 20 MG CAPSULE.DR PO (06:33)
[2022-02-04 07:31] LABS: Glucose, Whole Blood 225 mg/dL (60-115)
--- NOTE | 2022-02-04 08:15 | HE.PHANOTE ---
re mukesho Scr dropping. Continue current dose, trough due 02/06 @1999. Thanks Blue
[2022-02-04] MEDS: Cholecalciferol (Vitamin D3) 25 MCG TABLET 50 MCG PO (08:33)
[2022-02-04] MEDS: Docusate Sodium 100 MG CAPSULE PO (08:33)
[2022-02-04] MEDS: lisinopriL 5 MG TABLET PO (08:34)
--- NOTE | 2022-02-04 10:13 | HO.PM.IMPN ---
Subjective Subjective Date of Service: 02/04/22 <EMIR Merchant - Last Filed: 02/04/22 16:14> 02/05/22 <Dalton Andrade MD - Last Filed: 02/05/22 10:44> Interval History: 66 year old male seen for follow up on pneumonia/cavitary lesion with sepsis and generalized weakness. Still feeling feeling, but able to move his feet today. No sob, cough, chest pain. Reports urinary urgency, no dysuria, hematuria, retention. Danish interpretor used. <EMIR Merchant - Last Filed: 02/04/22 16:14> Review of Systems General: +generalized weakness. No fevers, malaise, unintentional weight loss Cardiovascular: No chest pain, palpitations, or leg edema Respiratory: No shortness of breath, wheezing, cough GI: No abdominal pain, nausea, vomiting, diarrhea, constipation, melena, hematochezia : +urgency. No dysuria, hematuria Neuro: No headaches, weakness, paresthesias Skin: No rashes or lesions <EMIR Merchant - Last Filed: 02/04/22 16:14> Physical Exam Vital Signs: Vital Signs: Last Vital Signs Temp 99.5 F 02/04/22 06:40 Pulse 97 02/04/22 06:40 Resp 24 H 02/04/22 06:40 BP 99/66 02/04/22 06:40 Pulse Ox 94 02/04/22 06:40 O2 Del Method 02/04/22 06:40 BMI result Body Mass Index 27.3 <EMIR Merchant - Last Filed: 02/04/22 16:14> Constitutional - Awake and Alert, No apparent distress Eyes - PERRLA, EOMI Cardiovascular - S1S2, RRR, No edema Respiratory - Diminished lung sound RUL, otherwise CTA. Normal lung expansion, Normal respiratory effort, No respiratory distress Gastrointestinal - NT / ND; +BS; No rebound or guarding Extremities - no calf tenderness bilaterally, no swelling Skin - Warm/Dry Neurological - Alert & oriented x3, No focal deficit Psychological - Appropriate affect <EMIR Merchant - Last Filed: 02/04/22 16:14> Objective Data Active Medications Acetaminophen (Acetaminophen 325 Mg Tablet) 650 mg PO Q6H PRN PRN Reason: Pain, Mild (Pain Scale 1-3) Last Admin: 02/04/22 01:59 Dose: 650 mg Documented By: AMADEO Aspirin (Aspirin Enteric Coated 81 Mg Tablet.Dr) 81 mg PO BEDTIME [facility] Last Admin: 02/03/22 22:56 Dose: 81 mg Documented By: IVAN Atorvastatin Calcium (Atorvastatin Calcium 10 Mg Tablet) 10 mg PO BEDTIME [facility] Last Admin: 02/03/22 22:56 Dose: 10 mg Documented By: IVAN Dextrose (Dextrose 50 % 25 Gm/50 Ml Syringe) 25 gm IVPUSH Q15M PRN; Protocol PRN Reason: per Hypoglycemia Standing Ord. Docusate Sodium (Docusate Sodium 100 Mg Capsule) 100 mg PO BID [facility] Last Admin: 02/04/22 08:33 Dose: 100 mg Documented By: KARINA Enoxaparin Sodium (Enoxaparin Sodium 40 Mg/0.4 Ml Syringe) 40 mg SUBCUT Q24H [facility] Last Admin: 02/03/22 22:58 Dose: 40 mg Documented By: IVAN Glucose (Glucose Gel 15 Gm Gel..Gram.) 15 gm PO Q15M PRN; Protocol PRN Reason: per Hypoglycemia Standing Ord. Piperacillin Sod/Tazobactam (Sod 3.375 gm/ Sodium Chloride) 50 mls @ 100 mls/hr IV Q6H [facility] Last Infusion: 02/04/22 08:18 Dose: 0 mls/hr Documented By: KARINA Vancomycin HCl 1,500 mg/ (Sodium Chloride) 500 mls @ 333.333 mls/hr IV Q24H [facility] Sodium Chloride (Ns) 1,000 mls @ 100 mls/hr IVCONT .Q10H [facility] Last Admin: 02/04/22 02:43 Dose: 100 mls/hr Documented By: AMADEO Insulin Human Lispro (Insulin Lispro 100 Unit/Ml 3 Ml Vial) 0 unit SUBCUT QIDACHS [facility]; Protocol Last Admin: 02/03/22 23:55 Dose: 6 unit Documented By: AMADEO Lisinopril (Lisinopril 5 Mg Tablet) 5 mg PO DAILY [facility]; Protocol Last Admin: 02/04/22 08:34 Dose: 5 mg Documented By: KARINA Melatonin (Melatonin 3 Mg Tablet) 6 mg PO BEDTIME PRN PRN Reason: Insomnia Omeprazole (Omeprazole 20 Mg Capsule.) 20 mg PO DAILY@0630 [facility] Last Admin: 02/04/22 06:33 Dose: 20 mg Documented By: AMADEO Pharmacy Consult (Consult Rx Perform Med Rec) 1 each MISCELLANE ONCE PRN PRN Reason: Consult order Pharmacy Consult (Consult Rx Vancomycin Dosing) 1 each MISCELLANE DAILY PRN PRN Reason: Consult order Senna (Sennosides 8.6 Mg Tablet) 17.2 mg PO BEDTIME PRN PRN Reason: Constipation Sodium Chloride (0.9 % Sodium Chloride Flush 3 Ml Syringe) 3 ml IVFLUSH QSHIFT [facility] Last Admin: 02/04/22 07:49 Dose: Not Given Documented By: SAGRARIO Non-Admin Reason: Med Not Available Tamsulosin HCl (Tamsulosin Hcl 0.4 Mg Capsule) 0.8 mg PO BEDTIME [facility] Last Admin: 02/03/22 22:56 Dose: 0.8 mg Documented By: IVAN Tramadol HCl (Tramadol Hcl 50 Mg Tablet) 50 mg PO QID PRN PRN Reason: severe pain Vitamin D (Cholecalciferol (Vitamin D3) 25 Mcg Tablet) 50 mcg PO DAILY [facility] Last Admin: 02/04/22 08:33 Dose: 50 mcg Documented By: KARINA <EMIR Merchant - Last Filed: 02/04/22 16:14> Labs CBC & Chem 7: : 02/05/22 08:53 02/05/22 06:25 <EMIR Merchant - Last Filed: 02/04/22 16:14> Labs: Laboratory Results - last 24 hr 02/03/22 02/03/22 02/03/22 16:18 16:18 16:18 MCV 85.4 MCH 29.9 MCHC 35.1 RDW 12.6 Plt Count 238 MPV 10.4 Immature Gran % (Auto) Cancelled Neut % (Auto) Cancelled Lymph % (Auto) Cancelled [place] % (Auto) Cancelled Eos % (Auto) Cancelled Baso % (Auto) Cancelled Lymph # (Auto) Cancelled [place] # (Auto) Cancelled Eos # (Auto) Cancelled Baso # (Auto) Cancelled Abs Immat Gran (auto) Cancelled Absolute Neuts (auto) Cancelled Absolute Nucleated RBC 0.000 Nucleated RBC % (auto) 0.0 Neutrophils % (Manual) 63 Band Neutrophils % 21 H Lymphocytes % (Manual) 8 L Monocytes % (Manual) 4 Metamyelocytes % 4 Abs Neuts (Manual) 13.8 H Lymphocytes # (Manual) 1.3 Monocytes # (Manual) 0.7 Metamyelocytes # 0.7 Dohle Bodies Platelet Estimate NORMAL Large Platelets Giant Platelets PRESENT Plt Morphology Comment NOTED RBC Morphology NORMAL D-Dimer High Sensitivty Anion Gap 18 Estim Creat Clear Calc 50.8 Estimated GFR 51 POC Glucose Random Glucose 324 H Lactic Acid Calcium 8.9 Total Bilirubin 1.7 H Direct Bilirubin 0.9 H AST 38 H ALT 23 Alkaline Phosphatase 90 Total Creatine Kinase 1236 H B-Natriuretic Peptide 33 Total Protein 7.5 Albumin 4.0 Lipase 5 L Urine Color Urine Appearance Urine pH Ur Specific [place] Urine Protein Urine Glucose (UA) Urine Ketones Urine Blood Urine Nitrite Ur Leukocyte Esterase Urine RBC Urine WBC Ur Squamous Epith Cells Urine Bacteria COVID-19 ([facility]) COVID-19 Clin Com 02/03/22 02/03/22 02/03/22 16:18 17:51 23:24 MCV MCH MCHC RDW Plt Count MPV Immature Gran % (Auto) Neut % (Auto) Lymph % (Auto) [place] % (Auto) Eos % (Auto) Baso % (Auto) Lymph # (Auto) [place] # (Auto) Eos # (Auto) Baso # (Auto) Abs Immat Gran (auto) Absolute Neuts (auto) Absolute Nucleated RBC Nucleated RBC % (auto) Neutrophils % (Manual) Band Neutrophils % Lymphocytes % (Manual) Monocytes % (Manual) Metamyelocytes % Abs Neuts (Manual) Lymphocytes # (Manual) Monocytes # (Manual) Metamyelocytes # Dohle Bodies Platelet Estimate Large Platelets Giant Platelets Plt Morphology Comment RBC Morphology D-Dimer High Sensitivty Anion Gap Estim Creat Clear Calc Estimated GFR POC Glucose Random Glucose Lactic Acid 1.6 Calcium Total Bilirubin Direct Bilirubin AST ALT Alkaline Phosphatase Total Creatine Kinase B-Natriuretic Peptide Total Protein Albumin Lipase Urine Color YELLOW Urine Appearance HAZY Urine pH 5.5 Ur Specific [place] >= 1.030 H Urine Protein 30 (1+) H Urine Glucose (UA) >=1000 H Urine Ketones 15 Urine Blood Large (3+) H Urine Nitrite Negative Ur Leukocyte Esterase Trace H Urine RBC 1-4 Urine WBC 50-75 H Ur Squamous Epith Cells 1+ Urine Bacteria 3+ COVID-19 ([facility]) Negative COVID-19 Clin Com See Note 02/03/22 02/04/22 02/04/22 23:33 02:53 02:53 MCV 84.7 MCH 30.4 MCHC 36.0 RDW 12.7 Plt Count 199 MPV 9.9 Immature Gran % (Auto) Cancelled Neut % (Auto) Cancelled Lymph % (Auto) Cancelled [place] % (Auto) Cancelled Eos % (Auto) Cancelled Baso % (Auto) Cancelled Lymph # (Auto) Cancelled [place] # (Auto) Cancelled Eos # (Auto) Cancelled Baso # (Auto) Cancelled Abs Immat Gran (auto) Cancelled Absolute Neuts (auto) Cancelled Absolute Nucleated RBC 0.000 Nucleated RBC % (auto) 0.0 Neutrophils % (Manual) 62 Band Neutrophils % 20 H Lymphocytes % (Manual) 11 L Monocytes % (Manual) 5 Metamyelocytes % 2 Abs Neuts (Manual) 9.8 H Lymphocytes # (Manual) 1.3 Monocytes # (Manual) 0.6 Metamyelocytes # 0.2 Dohle Bodies PRESENT Platelet Estimate NORMAL Large Platelets PRESENT Giant Platelets Plt Morphology Comment NOTED RBC Morphology NORMAL D-Dimer High Sensitivty Anion Gap 16 Estim Creat Clear Calc 67.2 Estimated GFR > 60 POC Glucose 280 H Random Glucose 225 H Lactic Acid Calcium 7.8 L D Total Bilirubin Direct Bilirubin AST ALT Alkaline Phosphatase Total Creatine Kinase B-Natriuretic Peptide Total Protein Albumin Lipase Urine Color Urine Appearance Urine pH Ur Specific [place] Urine Protein Urine Glucose (UA) Urine Ketones Urine Blood Urine Nitrite Ur Leukocyte Esterase Urine RBC Urine WBC Ur Squamous Epith Cells Urine Bacteria COVID-19 ([facility]) COVID-19 Clin Com 02/04/22 02/04/22 02/04/22 02:53 03:58 07:25 MCV MCH MCHC RDW Plt Count MPV Immature Gran % (Auto) Neut % (Auto) Lymph % (Auto) [place] % (Auto) Eos % (Auto) Baso % (Auto) Lymph # (Auto) [place] # (Auto) Eos # (Auto) Baso # (Auto) Abs Immat Gran (auto) Absolute Neuts (auto) Absolute Nucleated RBC Nucleated RBC % (auto) Neutrophils % (Manual) Band Neutrophils % Lymphocytes % (Manual) Monocytes % (Manual) Metamyelocytes % Abs Neuts (Manual) Lymphocytes # (Manual) Monocytes # (Manual) Metamyelocytes # Dohle Bodies Platelet Estimate Large Platelets Giant Platelets Plt Morphology Comment RBC Morphology D-Dimer High Sensitivty 449 Anion Gap Estim Creat Clear Calc 65.9 Estimated GFR > 60 POC Glucose 225 H Random Glucose Lactic Acid Calcium Total Bilirubin Direct Bilirubin AST ALT Alkaline Phosphatase Total Creatine Kinase B-Natriuretic Peptide Total Protein Albumin Lipase Urine Color Urine Appearance Urine pH Ur Specific [place] Urine Protein Urine Glucose (UA) Urine Ketones Urine Blood Urine Nitrite Ur Leukocyte Esterase Urine RBC Urine WBC Ur Squamous Epith Cells Urine Bacteria COVID-19 ([facility]) COVID-19 Clin Com <EMIR Merchant - Last Filed: 02/04/22 16:14> Assessment and Plan (1) Pneumonia: Status: Acute <EMIR Merchant - Last Filed: 02/04/22 16:14> (2) Sepsis: Status: Acute <EMIR Merchant - Last Filed: 02/04/22 16:14> (3) Pulmonary embolism: Status: Acute <EMIR Merchant - Last Filed: 02/04/22 16:14> Assessment and Plan: 66-year-old male with a past medical history of hypertension, hyperlipidemia, diabetes, BPH, 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 1- Cavitary lesion RUL- respiratory symptoms improving, no hypoxia -Most likely focal pneumonia- WBC trending down -Seen by ID today. Recommending pulmonary consult for bronchoscopy to r/o malignancy, AFB, fungus. COnsult ordered -Continue isolation precautions -Continue vanco and zosynto treat possible early lung abscess. Goal- transition to po augmentin and doxy 2-Sepsis- resolved -secondary to pneumonia -WBC trending down. Lactic acid normalized. Hemodynamically stable -COntinue vanco and zosyn as above 3-Acute Pulmonary embolism -CTA today with small solitary subsegmental PE RUL adjacent to cavitary lesion -Initiate eliquis 5mg BID 4- UTI -Continue zosyn and vanco 5- Non insulin dependent type 2 diabetes- uncontrolled -Continue SSI -Diabetic diet 6- BPH -Continue flomax 7-HTN- stable -Continue lisinopril 8-HDL- -Continue atorvastatin DVT prophylaxis:? Lovenox Code status:? Full code Patient requires ongoing inpatient management due to pneumonia with possible lung abscess and ongoing management of sepsis. he also has new PE requiring monitoring as he is at risk for decompensation. <EMIR Merchant - Last Filed: 02/04/22 16:14> Quality Stroke Does the patient have a stroke diagnosis?: No <EMIR Merchant - Last Filed: 02/04/22 16:14> VTE Prior VTE?: No <EMIR Merchant - Last Filed: 02/04/22 16:14> VTE Risk Level:: Medical - moderate - high <EMIR Merchant - Last Filed: 02/04/22 16:14> VTE Device Contraindication: Treatment Not Indicated <EMIR Merchant - Last Filed: 02/04/22 16:14> VTE Drug Contraindication: N/A - Med Ordered <EMIR Merchant - Last Filed: 02/04/22 16:14>
--- NOTE | 2022-02-04 12:08 | PC.NURSE ---
Morning insulin coverage was not provided due to no Humalog insulin in [facility]. Pharmacy was called twice to inform them of the lack of insulin.
[2022-02-04] MEDS: iohexoL 350 MG/ML 100 ML INFUS..BTL IV (12:19)
[2022-02-04 13:34] LABS: Glucose, Whole Blood 262 mg/dL (60-115)
[2022-02-04] MEDS: Insulin Lispro 100 UNIT/ML 3 ML VIAL SUBCUT ×2 (13:37→18:47)
--- NOTE | 2022-02-04 15:09 | P.CNID_ITS ---
History of Present Illness Data of Consult Service Date: 02/04/22 Requesting physician: Dalton Andrade Primary Care Provider: Calderon Physician HPI Reason for consult: lung cavity He has felt weak and presents to hospital. Symptoms are over last month He also has dry cough CT cavitary lung lesions. Review of Systems Review of Systems: Yes all other systems are reviewed and are negative COUNT INCLUDES THE [facility] Family History Family history: reviewed and not pertinent Social History Social History Alcohol intake: unknown Patient Tobacco Use Status: Tobacco use Unknown Use of substances other than those prescribed or required for medical reasons: Unknown Advance Directives: No Advance Directives Information Provided: No Meds Allergies Allergy/AdvReac Type Severity Reaction Status Date / Time No Known Allergies Allergy Unverified 03/08/20 16:45 Active Medications: Current Medications Acetaminophen (Acetaminophen 325 Mg Tablet) 650 mg PO Q6H PRN PRN Reason: Pain, Mild (Pain Scale 1-3) Last Admin: 02/04/22 01:59 Dose: 650 mg Apixaban (Apixaban 5 Mg Tablet) 10 mg PO Q12H [facility]CLUDES [facility] Stop: 02/11/22 02:16 Aspirin (Aspirin Enteric Coated 81 Mg Tablet.Dr) 81 mg PO BEDTIME JULY Last Admin: 02/03/22 22:56 Dose: 81 mg Atorvastatin Calcium (Atorvastatin Calcium 10 Mg Tablet) 10 mg PO BEDTIME COUNT INCLUDES [facility] Last Admin: 02/03/22 22:56 Dose: 10 mg Dextrose (Dextrose 50 % 25 Gm/50 Ml Syringe) 25 gm IVPUSH Q15M PRN; Protocol PRN Reason: per Hypoglycemia Standing Ord. Docusate Sodium (Docusate Sodium 100 Mg Capsule) 100 mg PO BID COUNT INCLUDES [facility] Last Admin: 02/04/22 08:33 Dose: 100 mg Glucose (Glucose Gel 15 Gm Gel..Gram.) 15 gm PO Q15M PRN; Protocol PRN Reason: per Hypoglycemia Standing Ord. Piperacillin Sod/Tazobactam (Sod 3.375 gm/ Sodium Chloride) 50 mls @ 100 mls/hr IV Q6H [facility]CLUDES [facility] Last Infusion: 02/04/22 14:21 Dose: Infused Vancomycin HCl 1,500 mg/ (Sodium Chloride) 500 mls @ 333.333 mls/hr IV Q24H COUNT INCLUDES THE [facility] Sodium Chloride (Ns) 1,000 mls @ 100 mls/hr IVCONT .Q10H COUNT INCLUDES THE [facility] Last Admin: 02/04/22 13:37 Dose: 100 mls/hr Insulin Human Lispro (Insulin Lispro 100 Unit/Ml 3 Ml Vial) 0 unit SUBCUT QIDACHS COUNT INCLUDES THE [facility]; Protocol Last Admin: 02/04/22 13:37 Dose: 6 unit Lisinopril (Lisinopril 5 Mg Tablet) 5 mg PO DAILY COUNT INCLUDES [facility]; Protocol Last Admin: 02/04/22 08:34 Dose: 5 mg Melatonin (Melatonin 3 Mg Tablet) 6 mg PO BEDTIME PRN PRN Reason: Insomnia Omeprazole (Omeprazole 20 Mg Capsule.Dr) 20 mg PO DAILY@0630 [facility]CLUDES [facility] Last Admin: 02/04/22 06:33 Dose: 20 mg Pharmacy Consult (Consult Rx Perform Med Rec) 1 each MISCELLANE ONCE PRN PRN Reason: Consult order Pharmacy Consult (Consult Rx Vancomycin Dosing) 1 each MISCELLANE DAILY PRN PRN Reason: Consult order Senna (Sennosides 8.6 Mg Tablet) 17.2 mg PO BEDTIME PRN PRN Reason: Constipation Sodium Chloride (0.9 % Sodium Chloride Flush 3 Ml Syringe) 3 ml IVFLUSH QSHIFT COUNT INCLUDES THE [facility] Last Admin: 02/04/22 13:36 Dose: Not Given Tamsulosin HCl (Tamsulosin Hcl 0.4 Mg Capsule) 0.8 mg PO BEDTIME COUNT INCLUDES [facility] Last Admin: 02/03/22 22:56 Dose: 0.8 mg Tramadol HCl (Tramadol Hcl 50 Mg Tablet) 50 mg PO QID PRN PRN Reason: severe pain Vitamin D (Cholecalciferol (Vitamin D3) 25 Mcg Tablet) 50 mcg PO DAILY COUNT INCLUDES [facility] Last Admin: 02/04/22 08:33 Dose: 50 mcg Home Medications Medication Instructions Recorded Confirmed Last Taken Type aspirin 81 mg tablet,delayed 1 tab PO BEDTIME 02/03/22 02/03/22 Unknown History release atorvastatin 10 mg tablet 1 tab PO BEDTIME 02/03/22 02/03/22 Unknown History cholecalciferol (vitamin D3) 50 1 cap PO DAILY 02/03/22 02/03/22 Unknown History mcg (2,000 unit) capsule (Vitamin D3) docusate sodium 100 mg capsule 1 cap PO BID 02/03/22 02/03/22 Unknown History glipizide 10 mg tablet 1 tab PO BID 02/03/22 02/03/22 Unknown History lisinopril 5 mg tablet 1 tab PO DAILY 02/03/22 02/03/22 Unknown History metformin 1,000 mg tablet 1 tab PO AC 02/03/22 02/03/22 Unknown History omeprazole 20 mg capsule,delayed 1 cap PO DAILY 02/03/22 02/03/22 Unknown His tory release polyvinyl alcohol 1.4 % eye drops 1 drp ophthalmic (eye) QID PRN Pain 02/03/22 02/03/22 Unknown History sitagliptin 100 mg tablet (Januvia) 1 tab PO DAILY 02/03/22 02/03/22 Unknown History tamsulosin 0.4 mg capsule 2 cap PO BEDTIME 02/03/22 02/03/22 Unknown History tramadol 50 mg tablet 1 tab PO QID PRN severe pain 02/03/22 02/03/22 Unknown History Physical Exam Vital Signs: Vital Signs: Last Vital Signs Temp 98.6 F 02/04/22 13:38 Pulse 94 02/04/22 13:38 Resp 14 02/04/22 13:38 BP 121/65 02/04/22 13:38 Pulse Ox 97 02/04/22 13:38 O2 Del Method 02/04/22 13:38 BMI result Body Mass Index 27.3 Const: General: cooperative HEENT: Head: Yes normal to inspection Face and sinus: Yes normal facial exam Mouth: Normal oral and palatal mucosa present Teeth and gingiva: dentition normal Eyes: General: appearance normal, both eyes and all related structures Pupils: Equal, round and reactive pupils present Resp: Effort & Inspection: normal respiratory effort Cardio: Rate: regular rate Rhythm: regular rhythm GI: Palpation (GI): Soft to palpation and nontender : General: Yes no CVA tenderness Back/Spine/Pelvis: Back: no CVA tenderness Skin: General skin exam: no rashes or lesions noted Neuro: General: moves all extremities Cranial nerves: Yes Equal, round and reactive pupils present Extrem: General: Yes normal to inspection Psych: Appearance: grossly normal Results Labs CBC & Chem 7: 02/04/22 02:53 02/04/22 03:58 Labs: Short CBC 02/03/22 02/04/22 Range/Units 16:18 02:53 WBC 16.4 H 11.9 H (4.8-10.8) X10*3/uL Hgb 14.1 11.9 L (14.0-18.0) g/dl Hct 40.2 L 33.1 L (42.0-52.0) % Plt Count 238 199 (160-400) X10*3/uL BMP 02/03/22 02/04/22 02/04/22 16:18 02:53 03:58 Sodium 132 L 134 L Potassium 3.8 3.6 Chloride 93 L 102 Carbon Dioxide 25 20 L BUN 23 H 20 H Creatinine 1.40 1.06 1.08 Calcium 8.9 7.8 L D Cardiac Enzymes 02/03/22 Range/Units 16:18 Total Creatine Kinase 1236 H (38-174) U/L Liver Function 02/03/22 Range/Units 16:18 Total Bilirubin 1.7 H (0.0-1.0) mg/dL Direct Bilirubin 0.9 H (0.0-0.5) mg/dL AST 38 H (5-37) U/L ALT 23 (0-40) U/L Alkaline Phosphatase 90 (39-117) U/L Albumin 4.0 (3.5-5.0) g/dL Urine 02/03/22 Range/Units 17:51 Urine Color YELLOW Urine Appearance HAZY Urine pH 5.5 (5.0-8.0) Ur Specific [place] >= 1.030 H (1.005-1.025) Urine Protein 30 (1+) H (NEG-TRACE) MG/DL Urine Glucose (UA) >=1000 H (NEG) MG/DL Assessment and Plan (1) Pneumonia: Status: Acute He may have early lung abscess Less likely fungal ,AFB (2) Sepsis: Status: Acute Plan Continue isolation for now,respiratory 3 am sputums may not be possible since has dry cough Better plan may be have pulmonary consider bronch r/o malignancy,AFB,fungus. Continue Vancomycin and Zosyn for now treat possible early lung abscess and then po Augmentin and Doxycycline (I dont see evidence of any prior CT scans here,[facility] or [facility])
[2022-02-04 16:17] LABS: Glucose, Whole Blood 259 mg/dL (60-115)
[2022-02-04 21:39] LABS: Glucose, Whole Blood 274 mg/dL (60-115)
[2022-02-05] VITALS (11 sets, daily range): BP systolic 106–159; BP diastolic 62–91; PULSE 61–107; RESP 11–20; TEMP 36.4–36.8; O2SAT 91–99; BMI 27.3
[2022-02-05] MEDS: Tamsulosin HCL 0.4 MG CAPSULE 0.8 MG PO ×2 (01:13→22:41)
[2022-02-05] MEDS: Apixaban 5 MG TABLET 10 MG PO ×2 (01:14→12:42)
[2022-02-05] MEDS: Aspirin Enteric Coated 81 MG TABLET.DR PO ×2 (01:14→22:42)
[2022-02-05] MEDS: Atorvastatin Calcium 10 MG TABLET PO ×2 (01:14→22:42)
[2022-02-05] MEDS: Docusate Sodium 100 MG CAPSULE PO ×3 (01:15→22:42)
[2022-02-05] MEDS: Insulin Lispro 100 UNIT/ML 3 ML VIAL SUBCUT ×4 (01:15→22:42)
[2022-02-05] MEDS: Piperacillin Sodium/Tazobactam 3.375 GM in 0.9 % Sodium Chloride 50 ML IV ×4 (01:15→17:10)
[2022-02-05] MEDS: 0.9 % Sodium Chloride Flush 3 ML SYRINGE IVFLUSH ×3 (01:15→17:10)
[2022-02-05] MEDS: vancomycin HCL 1,500 MG in 0.9 % Sodium Chloride 500 ML 333.33 MG IV (02:56)
[2022-02-05 07:16] LABS: Estimated Glomerular Filt Rate > 60
[2022-02-05 07:51] LABS: Glucose, Whole Blood 217 mg/dL (60-115)
[2022-02-05] MEDS: 0.9 % Sodium Chloride 1,000 ML 100 ML IVCONT (09:05)
[2022-02-05] MEDS: traMADoL HCL 50 MG TABLET PO (09:06)
[2022-02-05] MEDS: Cholecalciferol (Vitamin D3) 25 MCG TABLET 50 MCG PO (09:06)
[2022-02-05] MEDS: Omeprazole 20 MG CAPSULE.DR PO (09:07)
[2022-02-05] MEDS: lisinopriL 5 MG TABLET PO (09:07)
[2022-02-05 09:09] LABS: Hematocrit 30.3 % (42.0-52.0); Hemoglobin 10.8 g/dl (14.0-18.0); Mean Corpuscular HGB Conc 35.6 g/dl (31.0-36.0); Mean Corpuscular Volume 84.2 fL (80.0-98.0); Mean Platelet Volume 10.4 fL (9.4-12.4); Platelet Count 225 X10*3/uL (160-400); Red Cell Distribution Width 12.2 % (11.0-16.0)
--- NOTE | 2022-02-05 09:15 | P.PNIM_ITS ---
Subjective Subjective Date of Service: 02/05/22 Interval History: 66 year old male seen for follow up on pneumonia/cavitary lesion with sepsis and generalized weakness. Still feeling weak, but strength improving in lower extremities. Reports occassional difficulty breathing and dry cough. He is hungry. No chest pain. Czech interpretor used. Review of Systems General: +generalized weakness. No fevers, malaise, unintentional weight loss Cardiovascular: No chest pain, palpitations, or leg edema Respiratory: +sob, +cough GI: No abdominal pain, nausea, vomiting, diarrhea Neuro: No headaches, paresthesias Skin: No rashes or lesions Physical Exam Vital Signs: Vital Signs: Last Vital Signs Temp 98.2 F 02/05/22 07:36 Pulse 95 02/05/22 07:36 Resp 17 02/05/22 07:36 BP 157/79 H 02/05/22 07:36 Pulse Ox 97 02/05/22 07:36 O2 Del Method 02/05/22 07:36 BMI result Body Mass Index 27.3 Constitutional - Awake and Alert, No apparent distress Eyes - PERRLA, EOMI Cardiovascular - S1S2, RRR, No edema Respiratory - Normal lung expansion, Normal respiratory effort, No respiratory distress, CTA bilaterally. Speaking in full sentences Gastrointestinal - NT / ND; +BS; No rebound or guarding Extremities - no calf tenderness bilaterally, no swelling Skin - Warm/Dry Neurological - Alert & oriented x3 Psychological - Appropriate affect Objective Data Active Medications Acetaminophen (Acetaminophen 325 Mg Tablet) 650 mg PO Q6H PRN PRN Reason: Pain, Mild (Pain Scale 1-3) Last Admin: 02/04/22 01:59 Dose: 650 mg Documented By: AMADEO Apixaban (Apixaban 5 Mg Tablet) 10 mg PO Q12H [facility] Stop: 02/11/22 02:16 Last Admin: 02/05/22 01:14 Dose: 10 mg Documented By: FAHAD Aspirin (Aspirin Enteric Coated 81 Mg Tablet.) 81 mg PO BEDTIME [facility] Last Admin: 02/05/22 01:14 Dose: 81 mg Documented By: FAHAD Atorvastatin Calcium (Atorvastatin Calcium 10 Mg Tablet) 10 mg PO BEDTIME [facility] Last Admin: 02/05/22 01:14 Dose: 10 mg Documented By: FAHAD Dextrose (Dextrose 50 % 25 Gm/50 Ml Syringe) 25 gm IVPUSH Q15M PRN; Protocol PRN Reason: per Hypoglycemia Standing Ord. Docusate Sodium (Docusate Sodium 100 Mg Capsule) 100 mg PO BID [facility] Last Admin: 02/05/22 09:07 Dose: 100 mg Documented By: CHONG Glucose (Glucose Gel 15 Gm Gel..Gram.) 15 gm PO Q15M PRN; Protocol PRN Reason: per Hypoglycemia Standing Ord. Piperacillin Sod/Tazobactam (Sod 3.375 gm/ Sodium Chloride) 50 mls @ 100 mls/hr IV Q6H [facility] Last Infusion: 02/05/22 09:04 Dose: 0 mls/hr Documented By: CHONG Vancomycin HCl 1,500 mg/ (Sodium Chloride) 500 mls @ 333.333 mls/hr IV Q24H [facility] Last Infusion: 02/05/22 04:58 Dose: 0 mls/hr Documented By: FAHAD Sodium Chloride (Ns) 1,000 mls @ 100 mls/hr IVCONT .Q10H [facility] Last Admin: 02/05/22 09:05 Dose: 100 mls/hr Documented By: CHONG Insulin Human Lispro (Insulin Lispro 100 Unit/Ml 3 Ml Vial) 0 unit SUBCUT QIDACHS [facility]; Protocol Last Admin: 02/05/22 09:06 Dose: 4 unit Documented By: CHONG Lisinopril (Lisinopril 5 Mg Tablet) 5 mg PO DAILY [facility]; Protocol Last Admin: 02/05/22 09:07 Dose: 5 mg Documented By: CHONG Melatonin (Melatonin 3 Mg Tablet) 6 mg PO BEDTIME PRN PRN Reason: Insomnia Omeprazole (Omeprazole 20 Mg Capsule.) 20 mg PO DAILY@0630 [facility] Last Admin: 02/05/22 09:07 Dose: 20 mg Documented By: CHONG Pharmacy Consult (Consult Rx Perform Med Rec) 1 each MISCELLANE ONCE PRN PRN Reason: Consult order Pharmacy Consult (Consult Rx Vancomycin Dosing) 1 each MISCELLANE DAILY PRN PRN Reason: Consult order Senna (Sennosides 8.6 Mg Tablet) 17.2 mg PO BEDTIME PRN PRN Reason: Constipation Sodium Chloride (0.9 % Sodium Chloride Flush 3 Ml Syringe) 3 ml IVFLUSH QSHIFT [facility] Last Admin: 02/05/22 09:06 Dose: 3 ml Documented By: CHONG Tamsulosin HCl (Tamsulosin Hcl 0.4 Mg Capsule) 0.8 mg PO BEDTIME [facility] Last Admin: 02/05/22 01:13 Dose: 0.8 mg Documented By: FAHAD Tramadol HCl (Tramadol Hcl 50 Mg Tablet) 50 mg PO QID PRN PRN Reason: severe pain Last Admin: 02/05/22 09:06 Dose: 50 mg Documented By: CHONG Vitamin D (Cholecalciferol (Vitamin D3) 25 Mcg Tablet) 50 mcg PO DAILY [facility] Last Admin: 02/05/22 09:06 Dose: 50 mcg Documented By: CHONG Labs CBC & Chem 7: 02/04/22 02:53 02/05/22 06:25 Labs: Laboratory Results - last 24 hr 02/04/22 02/04/22 02/04/22 13:28 16:12 21:30 Estim Creat Clear Calc Estimated GFR POC Glucose 262 H 259 H 274 H 02/05/22 02/05/22 06:25 07:39 Estim Creat Clear Calc 95.0 Estimated GFR > 60 POC Glucose 217 H Microbiology Microbiology Results: Microbiology 02/03/22 16:09 Blood Culture - Preliminary Blood - Venous No growth after 24 hours. 02/03/22 16:18 Blood Culture - Preliminary Blood - Venous No growth after 24 hours. 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 1- Cavitary lesion RUL- respiratory symptoms improving but still having occasstional sob and cough secondary to pneumonia and PE, no hypoxia -Most likely focal pneumonia- WBC trending down -Seen by ID and will likely have bronch this morning to r/o malignancy, AFB, fungus -Continue isolation precautions -Continue vanco and zosynto treat possible early lung abscess. Goal- transition to po augmentin and doxy 2-Sepsis- resolved -secondary to pneumonia -WBC trending down. Lactic acid normalized. Hemodynamically stable -COntinue vanco and zosyn as above 3-Acute Pulmonary embolism -Continue eliquis 5mg BID 4- UTI- improving -Continue zosyn and vanco 5- Non insulin dependent type 2 diabetes- uncontrolled -Continue SSI -Diabetic diet 6- BPH- stable -Continue flomax 7-HTN- stable -Continue lisinopril 8-HDL- stable -Continue atorvastatin DVT prophylaxis:? Lovenox Code status:? Full code Patient requires ongoing inpatient management due to pneumonia with possible lung abscess and ongoing management of sepsis with IV antibiotics. Quality Stroke Does the patient have a stroke diagnosis?: No VTE Prior VTE?: No VTE Risk Level:: Medical - moderate - high VTE Device Contraindication: Treatment Not Indicated VTE Drug Contraindication: N/A - Med Ordered
[2022-02-05 09:18] LABS: WBC ABN SCTR FOR CBC 1
[2022-02-05 09:36] LABS: Vancomycin Random < 3.0 mcg/mL (15-20)
--- NOTE | 2022-02-05 09:53 | HE.PHANOTE ---
Vancomycin Dosing Addendum VALDO adrian called this morning to say the 02/04/22 2200 dose of vancomycin never infused because she forgot to unclamp the line. Ordered level and random vancomycin level < 3. Reloading the patient with vancomycin 2000 mg and adjusting dose to 1000 mg q12h for predicted AUC of 481. Next level 02/06/22 @2100
--- NOTE | 2022-02-05 10:07 | P.CONPL_ITS ---
History of Present Illness History of Present Illness Consult date: 02/05/22 Chief complaint: PNA Narrative: 66-year-old gentleman with underlying history of hypertension, diabetes mellitus , BPH, hyperlipidemia admitted on 02/03/2022 with 1 months history of slowly progressive weakness and dry cough. On ER evaluation patient was noted to have leukocytosis and right upper lobe cavitary lesion and pulmonary embolism. Patient was started on empiric antibiotics and evaluated by infectious Disease service with recommendation for bronchoscopy with bronchoalveolar lavage to obtain as sample for microbiologic/cytologic testing. Review of Systems Constitutional: Constitutional: Denies daytime sleepiness, Denies excessive sweating, Denies fatigue, Denies fever(s), Reports lethargy, Reports malaise, Denies night sweats, Denies snoring and Denies weight loss Eyes: Eyes: Denies blurry vision and Denies itchy eyes ENT: Denies nasal congestion, Denies post nasal drip, Denies sinus pain, Denies sinus pressure and Denies other ( Thrush) Cardiovascular: Cardiovascular: Denies chest pain, Denies pedal edema, Denies dyspnea, Denies orthopnea and Denies paroxysmal nocturnal dyspnea Respiratory: Respiratory: Reports cough, Denies hemoptysis, Denies excessive phlegm production, Denies dyspnea, Denies snoring and Denies wheezing Gastrointestinal: Gastrointestinal: Denies abdominal pain and Denies heartburn Musculoskeletal: Musculoskeletal: Denies myalgias, Denies arthralgias and Den ies joint swelling Integumentary/Breasts: Skin/Breast: Denies rash Neurologic: Denies memory loss and Denies seizure-like activity Psychiatric: Psychiatric: Denies abnormal sleep pattern, Denies anxiety and Denies memory loss Endocrine: Endocrine: Denies excessive sweating, Denies fatigue and Denies heat intolerance Hematologic/Lymphatic: Hematologic/Lymphatic: Denies easy bruising Allergic/Immunologic: Allergic/Immunologic: Denies itchy eyes, Denies seasonal rhinorrhea and Denies wheezing PMFSH Family History Family history: reviewed and not pertinent Social History Social History Housing: Apartment Alcohol intake: unknown Patient Tobacco Use Status: Tobacco use Unknown Meds Allergies Allergy/AdvReac Type Severity Reaction Status Date / Time No Known Allergies Allergy Unverified 03/08/20 16:45 Active Medications: Current Medications Acetaminophen (Acetaminophen 325 Mg Tablet) 650 mg PO Q6H PRN PRN Reason: Pain, Mild (Pain Scale 1-3) Last Admin: 02/04/22 01:59 Dose: 650 mg Apixaban (Apixaban 5 Mg Tablet) 10 mg PO Q12H [facility] Stop: 02/11/22 02:16 Last Admin: 02/05/22 01:14 Dose: 10 mg Aspirin (Aspirin Enteric Coated 81 Mg Tablet.) 81 mg PO BEDTIME [facility] Last Admin: 02/05/22 01:14 Dose: 81 mg Atorvastatin Calcium (Atorvastatin Calcium 10 Mg Tablet) 10 mg PO BEDTIME [facility] Last Admin: 02/05/22 01:14 Dose: 10 mg Dextrose (Dextrose 50 % 25 Gm/50 Ml Syringe) 25 gm IVPUSH Q15M PRN; Protocol PRN Reason: per Hypoglycemia Standing Ord. Docusate Sodium (Docusate Sodium 100 Mg Capsule) 100 mg PO BID [facility] Last Admin: 02/05/22 09:07 Dose: 100 mg Glucose (Glucose Gel 15 Gm Gel..Gram.) 15 gm PO Q15M PRN; Protocol PRN Reason: per Hypoglycemia Standing Ord. Piperacillin Sod/Tazobactam (Sod 3.375 gm/ Sodium Chloride) 50 mls @ 100 mls/hr IV Q6H [facility] Last Infusion: 02/05/22 09:04 Dose: Infused Sodium Chloride (Ns) 1,000 mls @ 100 mls/hr IVCONT .Q10H [facility] Last Admin: 02/05/22 09:05 Dose: 100 mls/hr Vancomycin HCl 2,000 mg/ (Sodium Chloride) 540 mls @ 270 mls/hr IV ONCE ONE Stop: 02/05/22 11:45 Vancomycin HCl 1,000 mg/ (Sodium Chloride) 270 mls @ 270 mls/hr IV Q12H [facility] Insulin Human Lispro (Insulin Lispro 100 Unit/Ml 3 Ml Vial) 0 unit SUBCUT QIDACHS [facility]; Protocol Last Admin: 02/05/22 09:06 Dose: 4 unit Lisinopril (Lisinopril 5 Mg Tablet) 5 mg PO DAILY [facility]; Protocol Last Admin: 02/05/22 09:07 Dose: 5 mg Melatonin (Melatonin 3 Mg Tablet) 6 mg PO BEDTIME PRN PRN Reason: Insomnia Omeprazole (Omeprazole 20 Mg Capsule.) 20 mg PO DAILY@0630 [facility] Last Admin: 02/05/22 09:07 Dose: 20 mg Pharmacy Consult (Consult Rx Perform Med Rec) 1 each MISCELLANE ONCE PRN PRN Reason: Consult order Pharmacy Consult (Consult Rx Vancomycin Dosing) 1 each MISCELLANE DAILY PRN PRN Reason: Consult order Senna (Sennosides 8.6 Mg Tablet) 17.2 mg PO BEDTIME PRN PRN Reason: Constipation Sodium Chloride (0.9 % Sodium Chloride Flush 3 Ml Syringe) 3 ml IVFLUSH QSHIFT [facility] Last Admin: 02/05/22 09:06 Dose: 3 ml Tamsulosin HCl (Tamsulosin Hcl 0.4 Mg Capsule) 0.8 mg PO BEDTIME [facility] Last Admin: 02/05/22 01:13 Dose: 0.8 mg Tramadol HCl (Tramadol Hcl 50 Mg Tablet) 50 mg PO QID PRN PRN Reason: severe pain Last Admin: 02/05/22 09:06 Dose: 50 mg Vitamin D (Cholecalciferol (Vitamin D3) 25 Mcg Tablet) 50 mcg PO DAILY [facility] Last Admin: 02/05/22 09:06 Dose: 50 mcg Home Medications Medication Instructions Recorded Confirmed Last Taken Type aspirin 81 mg tablet,delayed 1 tab PO BEDTIME 02/03/22 02/03/22 Unknown History release atorvastatin 10 mg tablet 1 tab PO BEDTIME 02/03/22 02/03/22 Unknown History cholecalciferol (vitamin D3) 50 1 cap PO DAILY 02/03/22 02/03/22 Unknown History mcg (2,000 unit) capsule (Vitamin D3) docusate sodium 100 mg capsule 1 cap PO BID 02/03/22 02/03/22 Unknown History glipizide 10 mg tablet 1 tab PO BID 02/03/22 02/03/22 Unknown History lisinopril 5 mg tablet 1 tab PO DAILY 02/03/22 02/03/22 Unknown History metformin 1,000 mg tablet 1 tab PO AC 02/03/22 02/03/22 Unknown History omeprazole 20 mg capsule,delayed 1 cap PO DAILY 02/03/22 02/03/22 Unknown History release polyvinyl alcohol 1.4 % eye drops 1 drp ophthalmic (eye) QID PRN Pain 02/03/22 02/03/22 Unknown History sitagliptin 100 mg tablet (Januvia) 1 tab PO DAILY 02/03/22 02/03/22 Unknown History tamsulosin 0.4 mg capsule 2 cap PO BEDTIME 02/03/22 02/03/22 Unknown History tramadol 50 mg tablet 1 tab PO QID PRN severe pain 02/03/22 02/03/22 Unknown History Physical Exam Vital Signs: Vital Signs: Last Vital Signs Temp 98.2 F 02/05/22 07:36 Pulse 95 02/05/22 07:36 Resp 17 02/05/22 07:36 BP 157/79 H 02/05/22 07:36 Pulse Ox 97 02/05/22 07:36 O2 Del Method 02/05/22 07:36 BMI result Body Mass Index 27.3 Const: General: no acute distress and alert Nutritional Appearance: not obese Orientation/consciousness: Other orientation findings ( oriented) HEENT: Head: Yes atraumatic Mouth: no other ( thrush) Throat: No postnasal drainage Eyes: General: appearance normal, both eyes and all related structures Sclerae: sclerae normal EOM: EOMs intact bilaterally Neck: Neck: Yes supple Lymphatic: no lymphadenopathy noted Resp: Effort & Inspection: normal respiratory effort and no use of accessory muscles Auscultation: clear to auscultation bilaterally Cardio: Rate: regular rate Rhythm: regular rhythm Heart sounds: no gallops, no murmurs and no rubs GI: Palpation (GI): Soft to palpation and Other GI palpation findings present ( nontender) Skin: General skin exam: other ( warm) Rashes: no rashes Extrem: General: No clubbing, No cyanosis and No edema Results Laboratory Findings CBC and BMP: 02/05/22 08:53 02/05/22 06:25 Abnormal lab findings: Abnormal Labs 02/03/22 02/03/22 02/03/22 16:18 16:18 17:51 WBC 16.4 H RBC Hgb Hct 40.2 L Band Neutrophils % 21 H Lymphocytes % (Manual) 8 L Abs Neuts (Manual) 13.8 H Sodium 132 L Chloride 93 L Carbon Dioxide BUN 23 H POC Glucose Random Glucose 324 H Calcium Total Bilirubin 1.7 H Direct Bilirubin 0.9 H AST 38 H Total Creatine Kinase 1236 H Lipase 5 L Ur Specific [place] >= 1.030 H Urine Protein 30 (1+) H Urine Glucose (UA) >=1000 H Urine Blood Large (3+) H Ur Leukocyte Esterase Trace H Urine WBC 50-75 H Random Vancomycin 02/03/22 02/04/22 02/04/22 23:33 02:53 02:53 WBC 11.9 H RBC 3.91 L Hgb 11.9 L Hct 33.1 L Band Neutrophils % 20 H Lymphocytes % (Manual) 11 L Abs Neuts (Manual) 9.8 H Sodium 134 L Chloride Carbon Dioxide 20 L BUN 20 H POC Glucose 280 H Random Glucose 225 H Calcium 7.8 L D Total Bilirubin Direct Bilirubin AST Total Creatine Kinase Lipase Ur Specific [place] Urine Protein Urine Glucose (UA) Urine Blood Ur Leukocyte Esterase Urine WBC Random Vancomycin 02/04/22 02/04/22 02/04/22 07:25 13:28 16:12 WBC RBC Hgb Hct Band Neutrophils % Lymphocytes % (Manual) Abs Neuts (Manual) Sodium Chloride Carbon Dioxide BUN POC Glucose 225 H 262 H 259 H Random Glucose Calcium Total Bilirubin Direct Bilirubin AST Total Creatine Kinase Lipase Ur Specific [place] Urine Protein Urine Glucose (UA) Urine Blood Ur Leukocyte Esterase Urine WBC Random Vancomycin 02/04/22 02/05/22 02/05/22 21:30 07:39 08:53 WBC RBC 3.60 L Hgb 10.8 L Hct 30.3 L Band Neutrophils % Lymphocytes % (Manual) Abs Neuts (Manual) Sodium Chloride Carbon Dioxide BUN POC Glucose 274 H 217 H Random Glucose Calcium Total Bilirubin Direct Bilirubin AST Total Creatine Kinase Lipase Ur Specific [place] Urine Protein Urine Glucose (UA) Urine Blood Ur Leukocyte Esterase Urine WBC Random Vancomycin 02/05/22 08:53 WBC RBC Hgb Hct Band Neutrophils % Lymphocytes % (Manual) Abs Neuts (Manual) Sodium Chloride Carbon Dioxide BUN POC Glucose Random Glucose Calcium Total Bilirubin Direct Bilirubin AST Total Creatine Kinase Lipase Ur Specific [place] Urine Protein Urine Glucose (UA) Urine Blood Ur Leukocyte Esterase Urine WBC Random Vancomycin < 3.0 L Microbiology: Microbiology 02/03/22 16:09 Blood - Venous Blood Culture - Preliminary No growth after 24 hours. 02/03/22 16:18 Blood - Venous Blood Culture - Preliminary No growth after 24 hours. Assessment and Plan (1) Cavitary lesion of lung: Status: Acute (2) Pulmonary embolism: Status: Acute Plan Impression: 66-year-old gentleman with right upper lobe cavitary lesion, unc lear whether infectious abscess versus AFB or malignant in etiology. Incidentally noted pulmonary embolism. Recommendations: Well plan probed bronchoscopy with bronchoalveolar lavage to obtain a sample for testing. Agree with anticoagulation. Procedures Date of Service Date of Service: 02/05/22
[2022-02-05 10:09] LABS: Band Neutrophils Percent 5 % (3-5); Lymphocytes Percent Manual 5 % (20-40); Metamyelocytes Percent 1 %; Monocytes Percent Manual 1 % (2-11); Neutrophils Percent Manual 88 % (45-73)
[2022-02-05 10:16] LABS: Platelet Estimate NORMAL (NORMAL); Platelet Morphology Comment NORMAL; RBC Morphology NOTED
[2022-02-05 10:17] LABS: Acanthocytes 1+ (0-2) /OIF
[2022-02-05 10:18] LABS: Lymphocytes Absolute Manual 0.5 X10*3/uL (1.2-4.9); Metamyelocytes Absolute 0.1 X10*3/uL; Monocytes Absolute Manual 0.1 X10*3/uL (0.1-1.2); Neutrophils Absolute Manual 9.2 X10*3/uL (2.0-8.3); White Blood Count 9.9 X10*3/uL (4.8-10.8)
--- NOTE | 2022-02-05 10:40 | MHC.SHP ---
Pre-Procedural Eval Section A Date of Service: 02/05/22 The patient is an INPATIENT: Yes The History & Physical has been completed within 30 days and I have reviewed it.: Yes Section B Chief Complaint: PNA Allergies: Allergies Allergy/AdvReac Type Severity Reaction Status Date / Time No Known Allergies Allergy Unverified 03/08/20 16:45 Plan I have reviewed the history and physical and performed a pertinent physical examination on my patient. No changes have occurred unless specified.
[2022-02-05 11:16] LABS: Glucose, Whole Blood 225 mg/dL (60-115)
--- NOTE | 2022-02-05 15:28 | P.CONAN_ITS ---
[facility] Active Problems Active Problems: All Active Problems (Updated 02/05/22 @ 10:32 by Emery Lynn MD) Cavitary lesion of lung (Acute) Pulmonary embolism (Acute) Rhabdomyolysis (Acute) Sepsis (Acute) Pneumonia (Acute) Acute UTI (Acute) Family History Family history of problems with anesthesia: No Surgical History History of Problems with Anesthesia: No Social History Social History Housing: Apartment Alcohol intake: unknown Patient Tobacco Use Status: Tobacco use Unknown Meds Allergies Allergy/AdvReac Type Severity Reaction Status Date / Time No Known Allergies Allergy Unverified 03/08/20 16:45 Active Medications: Current Medications Acetaminophen (Acetaminophen 325 Mg Tablet) 650 mg PO Q6H PRN PRN Reason: Pain, Mild (Pain Scale 1-3) Last Admin: 02/04/22 01:59 Dose: 650 mg Apixaban (Apixaban 5 Mg Tablet) 10 mg PO Q12H [facility] Stop: 02/11/22 02:16 Last Admin: 02/05/22 12:42 Dose: 10 mg Aspirin (Aspirin Enteric Coated 81 Mg Tablet.Dr) 81 mg PO BEDTIME [facility] Last Admin: 02/05/22 01:14 Dose: 81 mg Atorvastatin Calcium (Atorvastatin Calcium 10 Mg Tablet) 10 mg PO BEDTIME [facility] Last Admin: 02/05/22 01:14 Dose: 10 mg Dextrose (Dextrose 50 % 25 Gm/50 Ml Syringe) 25 gm IVPUSH Q15M PRN; Protocol PRN Reason: per Hypoglycemia Standing Ord. Docusate Sodium (Docusate Sodium 100 Mg Capsule) 100 mg PO BID [facility] Last Admin: 02/05/22 09:07 Dose: 100 mg Glucose (Glucose Gel 15 Gm Gel..Gram.) 15 gm PO Q15M PRN; Protocol PRN Reason: per Hypoglycemia Standing Ord. Piperacillin Sod/Tazobactam (Sod 3.375 gm/ Sodium Chloride) 50 mls @ 100 mls/hr IV Q6H [facility] Last Infusion: 02/05/22 12:42 Dose: Infused Sodium Chloride (Ns) 1,000 mls @ 100 mls/hr IVCONT .Q10H [facility] Last Admin: 02/05/22 09:05 Dose: 100 mls/hr Vancomycin HCl 1,000 mg/ (Sodium Chloride) 270 mls @ 270 mls/hr IV Q12H [facility] Insulin Human Lispro (Insulin Lispro 100 Unit/Ml 3 Ml Vial) 0 unit SUBCUT QIDACHS [facility]; Protocol Last Admin: 02/05/22 11:42 Dose: 4 unit Lisinopril (Lisinopril 5 Mg Tablet) 5 mg PO DAILY [facility]; Protocol Last Admin: 02/05/22 09:07 Dose: 5 mg Melatonin (Melatonin 3 Mg Tablet) 6 mg PO BEDTIME PRN PRN Reason: Insomnia Omeprazole (Omeprazole 20 Mg Capsule.Dr) 20 mg PO DAILY@0630 [facility] Last Admin: 02/05/22 09:07 Dose: 20 mg Pharmacy Consult (Consult Rx Perform Med Rec) 1 each MISCELLANE ONCE PRN PRN Reason: Consult order Pharmacy Consult (Consult Rx Vancomycin Dosing) 1 each MISCELLANE DAILY PRN PRN Reason: Consult order Senna (Sennosides 8.6 Mg Tablet) 17.2 mg PO BEDTIME PRN PRN Reason: Constipation Sodium Chloride (0.9 % Sodium Chloride Flush 3 Ml Syringe) 3 ml IVFLUSH QSHIFT [facility] Last Admin: 02/05/22 09:06 Dose: 3 ml Tamsulosin HCl (Tamsulosin Hcl 0.4 Mg Capsule) 0.8 mg PO BEDTIME [facility] Last Admin: 02/05/22 01:13 Dose: 0.8 mg Tramadol HCl (Tramadol Hcl 50 Mg Tablet) 50 mg PO QID PRN PRN Reason: severe pain Last Admin: 02/05/22 09:06 Dose: 50 mg Vitamin D (Cholecalciferol (Vitamin D3) 25 Mcg Tablet) 50 mcg PO DAILY [facility] Last Admin: 02/05/22 09:06 Dose: 50 mcg Home Medications Medication Instructions Recorded Confirmed Last Taken Type aspirin 81 mg tablet,delayed 1 tab PO BEDTIME 02/03/22 02/03/22 Unknown History release atorvastatin 10 mg tablet 1 tab PO BEDTIME 02/03/22 02/03/22 Unknown History cholecalciferol (vitamin D3) 50 1 cap PO DAILY 02/03/22 02/03/22 Unknown History mcg (2,000 unit) capsule (Vitamin D3) docusate sodium 100 mg capsule 1 cap PO BID 02/03/22 02/03/22 Unknown History glipizide 10 mg tablet 1 tab PO BID 02/03/22 02/03/22 Unknown History lisinopril 5 mg tablet 1 tab PO DAILY 02/03/22 02/03/22 Unknown History metformin 1,000 mg tablet 1 tab PO AC 02/03/22 02/03/22 Unknown History omeprazole 20 mg capsule,delayed 1 cap PO DAILY 02/03/22 02/03/22 Unknown History release polyvinyl alcohol 1.4 % eye drops 1 drp ophthalmic (eye) QID PRN Pain 02/03/22 02/03/22 Unknown History sitagliptin 100 mg tablet (Januvia) 1 tab PO DAILY 02/03/22 02/03/22 Unknown History tamsulosin 0.4 mg capsule 2 cap PO BEDTIME 02/03/22 02/03/22 Unknown History tramadol 50 mg tablet 1 tab PO QID PRN severe pain 02/03/22 02/03/22 Unknown Hi story Exam Exam Date and Time: February 05, 2022 1528 Height,Weight and Vital Signs: Height 5 ft 8 in Weight 81.6 kg Last Vital Signs Temp 97.7 F 02/05/22 11:02 Pulse 91 02/05/22 11:02 Resp 17 02/05/22 11:02 BP 134/81 02/05/22 11:02 Pulse Ox 97 02/05/22 11:02 O2 Del Method 02/05/22 11:02 Pertinent Lab Results Pertinent Lab Results: Laboratory Tests 02/03/22 02/03/22 02/03/22 16:18 16:18 16:18 WBC 16.4 H RBC 4.71 Hgb 14.1 Hct 40.2 L MCV 85.4 MCH 29.9 MCHC 35.1 RDW 12.6 Plt Count 238 MPV 10.4 Immature Gran % (Auto) Cancelled Neut % (Auto) Cancelled Lymph % (Auto) Cancelled [place] % (Auto) Cancelled Eos % (Auto) Cancelled Baso % (Auto) Cancelled Lymph # (Auto) Cancelled [place] # (Auto) Cancelled Eos # (Auto) Cancelled Baso # (Auto) Cancelled Abs Immat Gran (auto) Cancelled Absolute Neuts (auto) Cancelled Absolute Nucleated RBC 0.000 Nucleated RBC % (auto) 0.0 Neutrophils % (Manual) 63 Band Neutrophils % 21 H Lymphocytes % (Manual) 8 L Monocytes % (Manual) 4 Metamyelocytes % 4 Abs Neuts (Manual) 13.8 H Lymphocytes # (Manual) 1.3 Monocytes # (Manual) 0.7 Metamyelocytes # 0.7 Dohle Bodies Platelet Estimate NORMAL Large Platelets Giant Platelets PRESENT Plt Morphology Comment NOTED RBC Morphology NORMAL Acanthocytes (Spur) D-Dimer High Sensitivty Sodium 132 L Potassium 3.8 Chloride 93 L Carbon Dioxide 25 Anion Gap 18 BUN 23 H Creatinine 1.40 Estim Creat Clear Calc 50.8 Estimated GFR 51 POC Glucose Random Glucose 324 H Lactic Acid Calcium 8.9 Total Bilirubin 1.7 H Direct Bilirubin 0.9 H AST 38 H ALT 23 Alkaline Phosphatase 90 Total Creatine Kinase 1236 H Troponin I High Sens 15.7 B-Natriuretic Peptide Total Protein 7.5 Albumin 4.0 Lipase 5 L Urine Color Urine Appearance Urine pH Ur Specific [place] Urine Protein Urine Glucose (UA) Urine Ketones Urine Blood Urine Nitrite Ur Leukocyte Esterase Urine RBC Urine WBC Ur Squamous Epith Cells Urine Bacteria Random Vancomycin COVID-19 ([facility]) COVID-19 Clin Com 02/03/22 02/03/22 02/03/22 16:18 16:18 17:51 WBC RBC Hgb Hct MCV MCH MCHC RDW Plt Count MPV Immature Gran % (Auto) Neut % (Auto) Lymph % (Auto) [place] % (Auto) Eos % (Auto) Baso % (Auto) Lymph # (Auto) [place] # (Auto) Eos # (Auto) Baso # (Auto) Abs Immat Gran (auto) Absolute Neuts (auto) Absolute Nucleated RBC Nucleated RBC % (auto) Neutrophils % (Manual) Band Neutrophils % Lymphocytes % (Manual) Monocytes % (Manual) Metamyelocytes % Abs Neuts (Manual) Lymphocytes # (Manual) Monocytes # (Manual) Metamyelocytes # Dohle Bodies Platelet Estimate Large Platelets Giant Platelets Plt Morphology Comment RBC Morphology Acanthocytes (Spur) D-Dimer High Sensitivty Sodium Potassium Chloride Carbon Dioxide Anion Gap BUN Creatinine Estim Creat Clear Calc Estimated GFR POC Glucose Random Glucose Lactic Acid Calcium Total Bilirubin Direct Bilirubin AST ALT Alkaline Phosphatase Total Creatine Kinase Troponin I High Sens B-Natriuretic Peptide 33 Total Protein Albumin Lipase Urine Color YELLOW Urine Appearance HAZY Urine pH 5.5 Ur Specific [place] >= 1.030 H Urine Protein 30 (1+) H Urine Glucose (UA) >=1000 H Urine Ketones 15 Urine Blood Large (3+) H Urine Nitrite Negative Ur Leukocyte Esterase Trace H Urine RBC 1-4 Urine WBC 50-75 H Ur Squamous Epith Cells 1+ Urine Bacteria 3+ Random Vancomycin COVID-19 ([facility]) Negative COVID-19 Clin Com See Note 02/03/22 02/03/22 02/04/22 23:24 23:33 02:53 WBC 11.9 H RBC 3.91 L Hgb 11.9 L Hct 33.1 L MCV 84.7 MCH 30.4 MCHC 36.0 RDW 12.7 Plt Count 199 MPV 9.9 Immature Gran % (Auto) Cancelled Neut % (Auto) Cancelled Lymph % (Auto) Cancelled [place] % (Auto) Cancelled Eos % (Auto) Cancelled Baso % (Auto) Cancelled Lymph # (Auto) Cancelled [place] # (Auto) Cancelled Eos # (Auto) Cancelled Baso # (Auto) Cancelled Abs Immat Gran (auto) Cancelled Absolute Neuts (auto) Cancelled Absolute Nucleated RBC 0.000 Nucleated RBC % (auto) 0.0 Neutrophils % (Manual) 62 Band Neutrophils % 20 H Lymphocytes % (Manual) 11 L Monocytes % (Manual) 5 Metamyelocytes % 2 Abs Neuts (Manual) 9.8 H Lymphocytes # (Manual) 1.3 Monocytes # (Manual) 0.6 Metamyelocytes # 0.2 Dohle Bodies PRESENT Platelet Estimate NORMAL Large Platelets PRESENT Giant Platelets Plt Morphology Comment NOTED RBC Morphology NORMAL Acanthocytes (Spur) D-Dimer High Sensitivty Sodium Potassium Chloride Carbon Dioxide Anion Gap BUN Creatinine Estim Creat Clear Calc Estimated GFR POC Glucose 280 H Random Glucose Lactic Acid 1.6 Calcium Total Bilirubin Direct Bilirubin AST ALT Alkaline Phosphatase Total Creatine Kinase Troponin I High Sens B-Natriuretic Peptide Total Protein Albumin Lipase Urine Color Urine Appearance Urine pH Ur Specific [place] Urine Protein Urine Glucose (UA) Urine Ketones Urine Blood Urine Nitrite Ur Leukocyte Esterase Urine RBC Urine WBC Ur Squamous Epith Cells Urine Bacteria Random Vancomycin COVID-19 ([facility]) COVID-19 Clin Com 02/04/22 02/04/22 02/04/22 02:53 02:53 03:58 WBC RBC Hgb Hct MCV MCH MCHC RDW Plt Count MPV Immature Gran % (Auto) Neut % (Auto) Lymph % (Auto) [place] % (Auto) Eos % (Auto) Baso % (Auto) Lymph # (Auto) [place] # (Auto) Eos # (Auto) Baso # (Auto) Abs Immat Gran (auto) Absolute Neuts (auto) Absolute Nucleated RBC Nucleated RBC % (auto) Neutrophils % (Manual) Band Neutrophils % Lymphocytes % (Manual) Monocytes % (Manual) Metamyelocytes % Abs Neuts (Manual) Lymphocytes # (Manual) Monocytes # (Manual) Metamyelocytes # Dohle Bodies Platelet Estimate Large Platelets Giant Platelets Plt Morphology Comment RBC Morphology Acanthocytes (Spur) D-Dimer High Sensitivty 449 Sodium 134 L Potassium 3.6 Chloride 102 Carbon Dioxide 20 L Anion Gap 16 BUN 20 H Creatinine 1.06 1.08 Estim Creat Clear Calc 67.2 65.9 Estimated GFR > 60 > 60 POC Glucose Random Glucose 225 H Lactic Acid Calcium 7.8 L D Total Bilirubin Direct Bilirubin AST ALT Alkaline Phosphatase Total Creatine Kinase Troponin I High Sens B-Natriuretic Peptide Total Protein Albumin Lipase Urine Color Urine Appearance Urine pH Ur Specific [place] Urine Protein Urine Glucose (UA) Urine Ketones Urine Blood Urine Nitrite Ur Leukocyte Esterase Urine RBC Urine WBC Ur Squamous Epith Cells Urine Bacteria Random Vancomycin COVID-19 ([facility]) COVID-19 [employer] Com 02/04/22 02/04/22 02/04/22 07:25 13:28 16:12 WBC RBC Hgb Hct MCV MCH MCHC RDW Plt Count MPV Immature Gran % (Auto) Neut % (Auto) Lymph % (Auto) [place] % (Auto) Eos % (Auto) Baso % (Auto) Lymph # (Auto) [place] # (Auto) Eos # (Auto) Baso # (Auto) Abs Immat Gran (auto) Absolute Neuts (auto) Absolute Nucleated RBC Nucleated RBC % (auto) Neutrophils % (Manual) Band Neutrophils % Lymphocytes % (Manual) Monocytes % (Manual) Metamyelocytes % Abs Neuts (Manual) Lymphocytes # (Manual) Monocytes # (Manual) Metamyelocytes # Dohle Bodies Platelet Estimate Large Platelets Giant Platelets Plt Morphology Comment RBC Morphology Acanthocytes (Spur) D-Dimer High Sensitivty Sodium Potassium Chloride Carbon Dioxide Anion Gap BUN Creatinine Estim Creat Clear Calc Estimated GFR POC Glucose 225 H 262 H 259 H Random Glucose Lactic Acid Calcium Total Bilirubin Direct Bilirubin AST ALT Alkaline Phosphatase Total Creatine Kinase Troponin I High Sens B-Natriuretic Peptide Total Protein Albumin Lipase Urine Color Urine Appearance Urine pH Ur Specific [place] Urine Protein Urine Glucose (UA) Urine Ketones Urine Blood Urine Nitrite Ur Leukocyte Esterase Urine RBC Urine WBC Ur Squamous Epith Cells Urine Bacteria Random Vancomycin COVID-19 ([facility]) COVID-19 [employer] 02/04/22 02/05/22 02/05/22 21:30 06:25 07:39 WBC RBC Hgb Hct MCV MCH MCHC RDW Plt Count MPV Immature Gran % (Auto) Neut % (Auto) Lymph % (Auto) [place] % (Auto) Eos % (Auto) Baso % (Auto) Lymph # (Auto) [place] # (Auto) Eos # (Auto) Baso # (Auto) Abs Immat Gran (auto) Absolute Neuts (auto) Absolute Nucleated RBC Nucleated RBC % (auto) Neutrophils % (Manual) Band Neutrophils % Lymphocytes % (Manual) Monocytes % (Manual) Metamyelocytes % Abs Neuts (Manual) Lymphocytes # (Manual) Monocytes # (Manual) Metamyelocytes # Dohle Bodies Platelet Estimate Large Platelets Giant Platelets Plt Morphology Comment RBC Morphology Acanthocytes (Spur) D-Dimer High Sensitivty Sodium Potassium Chloride Carbon Dioxide Anion Gap BUN Creatinine 0.75 Estim Creat Clear Calc 95.0 Estimated GFR > 60 POC Glucose 274 H 217 H Random Glucose Lactic Acid Calcium Total Bilirubin Direct Bilirubin AST ALT Alkaline Phosphatase Total Creatine Kinase Troponin I High Sens B-Natriuretic Peptide Total Protein Albumin Lipase Urine Color Urine Appearance Urine pH Ur Specific [place] Urine Protein Urine Glucose (UA) Urine Ketones Urine Blood Urine Nitrite Ur Leukocyte Esterase Urine RBC Urine WBC Ur Squamous Epith Cells Urine Bacteria Random Vancomycin COVID-19 ([facility]) COVID-19 [employer] 02/05/22 02/05/22 02/05/22 08:53 08:53 11:04 WBC 9.9 RBC 3.60 L Hgb 10.8 L Hct 30.3 L MCV 84.2 MCH 30.0 MCHC 35.6 RDW 12.2 Plt Count 225 MPV 10.4 Immature Gran % (Auto) Cancelled Neut % (Auto) Cancelled Lymph % (Auto) Cancelled [place] % (Auto) Cancelled Eos % (Auto) Cancelled Baso % (Auto) Cancelled Lymph # (Auto) Cancelled [place] # (Auto) Cancelled Eos # (Auto) Cancelled Baso # (Auto) Cancelled Abs Immat Gran (auto) Cancelled Absolute Neuts (auto) Cancelled Absolute Nucleated RBC Not Reportable Nucleated RBC % (auto) Not Reportable Neutrophils % (Manual) 88 H Band Neutrophils % 5 Lymphocytes % (Manual) 5 L Monocytes % (Manual) 1 L Metamyelocytes % 1 Abs Neuts (Manual) 9.2 H Lymphocytes # (Manual) 0.5 L Monocytes # (Manual) 0.1 Metamyelocytes # 0.1 Dohle Bodies Platelet Estimate NORMAL Large Platelets Giant Platelets Plt Morphology Comment NORMAL RBC Morphology NOTED Acanthocytes (Spur) 1+ (0-2) D-Dimer High Sensitivty Sodium Potassium Chloride Carbon Dioxide Anion Gap BUN Creatinine Estim Creat Clear Calc Estimated GFR POC Glucose 225 H Random Glucose Lactic Acid Calcium Total Bilirubin Direct Bilirubin AST ALT Alkaline Phosphatase Total Creatine Kinase Troponin I High Sens B-Natriuretic Peptide Total Protein Albumin Lipase Urine Color Urine Appearance Urine pH Ur Specific [place] Urine Protein Urine Glucose (UA) Urine Ketones Urine Blood Urine Nitrite Ur Leukocyte Esterase Urine RBC Urine WBC Ur Squamous Epith Cells Urine Bacteria Random Vancomycin < 3.0 L COVID-19 ([facility]) COVID-19 Clin Com Airway Mallampati Class: III TM Dist: >3cm Neck ROM: Full Assessment and Plan Assessment Anesthesia Assessment: Anesthesia Plan Discussed and Chart Reviewed Final Anesthetic Review Family History of Problems with Anesthesia: No History of Problems with Anesthesia: No NPO: Yes ASA Class: III and Emergency Final Preanesthetic Review: No Changes in Pt Med Stat, Meds/Allgs Chart Reviewed, Consent Obtained/Reviewed and Anes Risks/Benef Reviewed Patient Risk: Intermediate Procedure Risk: Intermediate Anesthetic Plan Anesthetic Plan: GA Disposition: Standard PACU
--- NOTE | 2022-02-05 15:52 | PC.NURSE ---
Alert and responsive/ C/O legs pain, medicated per MAR with good effect. VSS, afebrile, no acute resp. distress noted. Remained on airborne precautions TB r/o. NPO, left the unit for Bronchoscopy, awaiting return.
--- NOTE | 2022-02-05 16:15 | PM.OP ---
Brief Operative Note Date of Service: 02/05/22 Pre-op diagnosis: Right upper lobe cavitary lesion Post-op diagnosis: same Procedure: Flexible bronchoscope advanced through the ET tube, with patient intubated for the procedure, and through the tracheobronchial tree. 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 Compression effect from right upper lobe cavitary lesion was noted on the right upper lobe and segmental bronchi. Bronchoalveolar lavage with 90 cc of normal saline performed in the right upper lobe segments with return of approximately 25 cc sent for microbiologic and cytologic testing. No significant secretions noted. Bronchial mucosa noted to been normal. Patient tolerated the procedure well. Surgeon: Emery Lynn MD Anesthesia: GETA Was an [place] Cleaner used for this Procedure?: No Estimated blood loss (mL): 0 Pathology: other Condition: stable Disposition: floor
[2022-02-05 17:50] LABS: Glucose, Whole Blood 134 mg/dL (60-115)
--- NOTE | 2022-02-05 20:10 | PC.NURSE ---
Bronchoscopy completed. VSS, afebrile. Denies pain. Occasional dry cough noted. Remained on precautions. will continue to monitor and treat per plan of care.
[2022-02-05 20:31] LABS: Glucose, Whole Blood 184 mg/dL (60-115)
[2022-02-06] VITALS (8 sets, daily range): BP systolic 128–158; BP diastolic 70–90; PULSE 84–106; RESP 17–21; TEMP 36.5–37; O2SAT 97–98
[2022-02-06] MEDS: vancomycin HCL 1,000 MG in 0.9 % Sodium Chloride 250 ML 279 MG IV (00:02)
[2022-02-06] MEDS: 0.9 % Sodium Chloride 1,000 ML 100 ML IVCONT (00:04)
[2022-02-06] MEDS: Apixaban 5 MG TABLET 10 MG PO ×2 (03:11→13:32)
[2022-02-06] MEDS: Piperacillin Sodium/Tazobactam 3.375 GM in 0.9 % Sodium Chloride 50 ML IV ×2 (06:32→12:26)
[2022-02-06] MEDS: Omeprazole 20 MG CAPSULE.DR PO (06:33)
[2022-02-06 07:36] LABS: Creatinine Clr Calc Pharmacy 71.9; Estimated Glomerular Filt Rate > 60
[2022-02-06 07:51] LABS: Glucose, Whole Blood 521 mg/dL (60-115)
[2022-02-06] MEDS: Cholecalciferol (Vitamin D3) 25 MCG TABLET 50 MCG PO (08:04)
[2022-02-06] MEDS: lisinopriL 5 MG TABLET PO (08:04)
[2022-02-06] MEDS: 0.9 % Sodium Chloride Flush 3 ML SYRINGE IVFLUSH ×2 (08:05→22:35)
[2022-02-06] MEDS: Docusate Sodium 100 MG CAPSULE PO ×2 (08:05→22:35)
[2022-02-06] MEDS: Insulin Lispro 100 UNIT/ML 3 ML VIAL SUBCUT ×3 (08:05→22:35)
[2022-02-06] MEDS: vancomycin HCL 1,000 MG in 0.9 % Sodium Chloride 250 ML 270 MG IV (11:08)
--- NOTE | 2022-02-06 11:17 | P.PNIM_ITS ---
Subjective Subjective Date of Service: 02/06/22 Interval History: 66 year old male seen for follow up on pneumonia/cavitary lesion with sepsis and generalized weakness. Still feeling weak, but strength improving in lower extremities. Reports feeling better, only occassional shortness of breath and course. No chest pain. [place]ian interpretor used. Review of Systems General: + generalized weakness. No fevers, malaise, unintentional weight loss Cardiovascular: No chest pain, palpitations, or leg edema Respiratory: +shortness of breath, +cough. GI: No abdominal pain, nausea, vomiting, diarrhea, constipation, melena, hematochezia Neuro: No headaches, paresthesias Skin: No rashes or lesions Physical Exam Vital Signs: Vital Signs: Last Vital Signs Temp 97.8 F 02/06/22 07:43 Pulse 84 02/06/22 07:43 Resp 20 02/06/22 07:43 BP 149/79 H 02/06/22 07:43 Pulse Ox 98 02/06/22 07:43 O2 Del Method 02/06/22 07:43 O2 Flow Rate 2 02/05/22 16:32 BMI result Body Mass Index 27.3 Constitutional - Awake and Alert, No apparent distress Eyes - PERRLA, EOMI Cardiovascular - S1S2, RRR, No edema Respiratory - Normal lung expansion, Normal respiratory effort, No respiratory d istress, CTA bilaterally. Speaking in full sentences Gastrointestinal - NT / ND; +BS; No rebound or guarding Extremities - no calf tenderness bilaterally, no swelling Skin - Warm/Dry Neurological - Alert & oriented x3 Psychological - Appropriate affect Const: General: no acute distress and alert Nutritional Appearance: not obese Orientation/consciousness: Other orientation findings ( oriented) HEENT: Head: Yes atraumatic Mouth: no other ( thrush) Throat: No postnasal drainage Eyes: General: appearance normal, both eyes and all related structures Sclerae: sclerae normal EOM: EOMs intact bilaterally Neck: Neck: Yes supple Lymphatic: no lymphadenopathy noted Resp: Effort & Inspection: normal respiratory effort and no use of accessory muscles Auscultation: clear to auscultation bilaterally Cardio: Rate: regular rate Rhythm: regular rhythm Heart sounds: no gallops, no murmurs and no rubs GI: Palpation (GI): Soft to palpation and Other GI palpation findings present ( nontender) Skin: General skin exam: other ( warm) Rashes: no rashes Extrem: General: No clubbing, No cyanosis and No edema Objective Data Active Medications Acetaminophen (Acetaminophen 325 Mg Tablet) 650 mg PO Q6H PRN PRN Reason: Pain, Mild (Pain Scale 1-3) Last Admin: 02/04/22 01:59 Dose: 650 mg Documented By: AMADEO Apixaban (Apixaban 5 Mg Tablet) 10 mg PO Q12H [facility] Stop: 02/11/22 02:16 Last Admin: 02/06/22 03:11 Dose: 10 mg Documented By: BETHANY Aspirin (Aspirin Enteric Coated 81 Mg Tablet.Dr) 81 mg PO BEDTIME [facility] Last Admin: 02/05/22 22:42 Dose: 81 mg Documented By: APOLLO Atorvastatin Calcium (Atorvastatin Calcium 10 Mg Tablet) 10 mg PO BEDTIME [facility] Last Admin: 02/05/22 22:42 Dose: 10 mg Documented By: APOLLO Dextrose (Dextrose 50 % 25 Gm/50 Ml Syringe) 25 gm IVPUSH Q15M PRN; Protocol PRN Reason: per Hypoglycemia Standing Ord. Docusate Sodium (Docusate Sodium 100 Mg Capsule) 100 mg PO BID [facility] Last Admin: 02/06/22 08:05 Dose: 100 mg Documented By: SORAYA Glucose (Glucose Gel 15 Gm Gel..Gram.) 15 gm PO Q15M PRN; Protocol PRN Reason: per Hypoglycemia Standing Ord. Piperacillin Sod/Tazobactam (Sod 3.375 gm/ Sodium Chloride) 50 mls @ 100 mls/hr IV Q6H [facility] Last Infusion: 02/06/22 11:06 Dose: 0 mls/hr Documented By: SORAYA Vancomycin HCl 1,000 mg/ (Sodium Chloride) 270 mls @ 270 mls/hr IV Q12H [facility] Last Admin: 02/06/22 11:08 Dose: 270 mls/hr Documented By: SORAYA Insulin Human Lispro (Insulin Lispro 100 Unit/Ml 3 Ml Vial) 0 unit SUBCUT QIDACHS [facility]; Protocol Last Admin: 02/06/22 08:05 Dose: 10 unit Documented By: SORAYA Lisinopril (Lisinopril 5 Mg Tablet) 5 mg PO DAILY [facility]; Protocol Last Admin: 02/06/22 08:04 Dose: 5 mg Documented By: SORAYA Melatonin (Melatonin 3 Mg Tablet) 6 mg PO BEDTIME PRN PRN Reason: Insomnia Omeprazole (Omeprazole 20 Mg Capsule.) 20 mg PO DAILY@0630 [facility] Last Admin: 02/06/22 06:33 Dose: 20 mg Documented By: BETHANY Pharmacy Consult (Consult Rx Perform Med Rec) 1 each MISCELLANE ONCE PRN PRN Reason: Consult order Pharmacy Consult (Consult Rx Vancomycin Dosing) 1 each MISCELLANE DAILY PRN PRN Reason: Consult order Senna (Sennosides 8.6 Mg Tablet) 17.2 mg PO BEDTIME PRN PRN Reason: Constipation Sodium Chloride (0.9 % Sodium Chloride Flush 3 Ml Syringe) 3 ml IVFLUSH QSHIFT [facility] Last Admin: 02/06/22 08:05 Dose: 3 ml Documented By: SORAYA Tamsulosin HCl (Tamsulosin Hcl 0.4 Mg Capsule) 0.8 mg PO BEDTIME [facility] Last Admin: 02/05/22 22:41 Dose: 0.8 mg Documented By: APOLLO Tramadol HCl (Tramadol Hcl 50 Mg Tablet) 50 mg PO QID PRN PRN Reason: severe pain Last Admin: 02/05/22 09:06 Dose: 50 mg Documented By: CHONG Vitamin D (Cholecalciferol (Vitamin D3) 25 Mcg Tablet) 50 mcg PO DAILY [facility] Last Admin: 02/06/22 08:04 Dose: 50 mcg Documented By: SORAYA Labs CBC & Chem 7: 02/05/22 08:53 02/06/22 07:07 Labs: Laboratory Results - last 24 hr 02/05/22 02/05/22 02/06/22 17:47 20:11 07:07 Estim Creat Clear Calc 71.9 Estimated GFR > 60 POC Glucose 134 H 184 H 02/06/22 07:47 Estim Creat Clear Calc Estimated GFR POC Glucose 521 H* Microbiology Microbiology Results: Microbiology 02/05/22 16:02 Gram Stain - Final Bronchial Washings Routine Culture - Preliminary Culture in progress. 02/03/22 16:09 Blood Culture - Preliminary Blood - Venous No growth after 48 hours. 02/03/22 16:18 Blood Culture - Preliminary Blood - Venous No growth after 48 hours. 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 1- Cavitary lesion RUL- respiratory symptoms improving but still having occasstional sob and cough secondary to pneumonia and PE, no hypoxia -Most likely focal pneumonia- WBC normal -Underwent bronchoscopy with Jackie Lynn yesterday- awaiting results of gram stain and cultures. Tspot ordered -Continue isolation precautions for tb per ID -Continue vanco and zosynto treat possible early lung abscess. Goal- transition to po augmentin and doxy 2-Sepsis- resolved -secondary to pneumonia -WBC normal. Lactic acid normalized. Hemodynamically stable -COntinue vanco and zosyn as above 3-Acute Pulmonary embolism -Continue eliquis 5mg BID 4- UTI- improving -Continue zosyn and vanco 5- Non insulin dependent type 2 diabetes- uncontrolled -Increase SSi by 2 units -Resume metformin, januvia, and glipizide -Diabetic diet 6- BPH- stable -Continue flomax 7-HTN- stable -Continue lisinopril 8-HDL- stable -Continue atorvastatin DVT prophylaxis:? Lovenox Code status:? Full code Patient requires ongoing inpatient management due to pneumonia with possible lung abscess and ongoing management of sepsis with IV antibiotics. Quality Stroke Does the patient have a stroke diagnosis?: No VTE Prior VTE?: No VTE Risk Level:: Medical - moderate - high VTE Device Contraindication: Treatment Not Indicated VTE Drug Contraindication: N/A - Med Ordered
[2022-02-06 11:29] LABS: Glucose, Whole Blood 339 mg/dL (60-115)
--- NOTE | 2022-02-06 14:21 | MHC.CM.PN ---
IMM 02/04/22Met with patient and mental health tech to DP. Patient lives alone. He receives [employer] hrs 20/week. He reports that he did have 24 hours a day. The hours have been cut recently. He states that he is bed bound. He states that he can get transferred into the . and sit outside for a while, at home. When asked who does his grocery shopping, He stated that he does it himself. He has a HCP on file, Harry Jacobo. He is also his primary contact. Tried to confirm patients history, attempted to reach the HCP via phone. No answer a was left requesting a return call.
[2022-02-06 16:31] LABS: Glucose, Whole Blood 289 mg/dL (60-115)
[2022-02-06 19:41] LABS: Glucose, Whole Blood 371 mg/dL (60-115)
[2022-02-06 22:13] LABS: Vancomycin Trough 8.6 mcg/mL (10.0-20.0)
--- NOTE | 2022-02-06 22:25 | HE.PHANOTE ---
Vancomycin Dosing Addendum Vancomycin Trough 8.6. Increasing dose to 1250 mg q12h. Continue to monitor SCR daily ( jump in Scr from 02/05 to 02/06). Next level 02/07 @2100.
[2022-02-06] MEDS: Tamsulosin HCL 0.4 MG CAPSULE 0.8 MG PO (22:34)
[2022-02-06] MEDS: glipiZIDE 10 MG TABLET PO (22:34)
[2022-02-06] MEDS: Aspirin Enteric Coated 81 MG TABLET.DR PO (22:35)
[2022-02-06] MEDS: Atorvastatin Calcium 10 MG TABLET PO (22:35)
[2022-02-06] MEDS: vancomycin HCL 1,250 MG in 0.9 % Sodium Chloride 250 ML 166.67 MG IV (23:03)
[2022-02-07] VITALS (7 sets, daily range): BP systolic 138–172; BP diastolic 67–99; PULSE 82–103; RESP 18–20; TEMP 36.4–37.5; O2SAT 95–98
[2022-02-07] MEDS: Apixaban 5 MG TABLET 10 MG PO (03:18)
[2022-02-07 06:51] LABS: Creatinine Clr Calc Pharmacy 91.3; Estimated Glomerular Filt Rate > 60
[2022-02-07 07:53] LABS: Glucose, Whole Blood 193 mg/dL (60-115)
--- NOTE | 2022-02-07 10:08 | P.PNIM_ITS ---
Subjective Subjective Date of Service: 02/07/22 Interval History: 66 year old male seen for follow up on pneumonia/cavitary lesion with sepsis and generalized weakness. Still feeling weak with soreness in the lower extremities, but strength improving in lower extremities. Continues with occassional shortness of breath and cough. No chest pain. Citizen [place] interpretor used. Review of Systems General: + generalized weakness. No fevers, malaise, unintentional weight loss Cardiovascular: No chest pain, palpitations, or leg edema Respiratory: +shortness of breath, +cough. GI: No abdominal pain, nausea, vomiting, diarrhea, constipation, melena, hematochezia Neuro: No headaches, paresthesias Skin: No rashes or lesions Physical Exam Vital Signs: Vital Signs: Last Vital Signs Temp 97.8 F 02/07/22 07:47 Pulse 100 02/07/22 10:00 Resp 20 02/07/22 07:47 BP 158/77 H 02/07/22 10:00 Pulse Ox 96 02/07/22 10:00 O2 Del Method 02/07/22 07:47 O2 Flow Rate 2 02/05/22 16:32 BMI result Body Mass Index 27.3 Constitutional - Awake and Alert, No apparent distress Eyes - PERRLA, EOMI Cardiovascular - S1S2, RRR, No edema Respiratory - Normal lung expansion, Normal respiratory effort, No respiratory distress, CTA bilaterally Extremities - mild b/l calf tenderness, no swelling Skin - Warm/Dry Neurological - Alert & oriented x3 Objective Data Active Medications Acetaminophen (Acetaminophen 325 Mg Tablet) 650 mg PO Q6H PRN PRN Reason: Pain, Mild (Pain Scale 1-3) Last Admin: 02/04/22 01:59 Dose: 650 mg Documented By: AMADEO Apixaban (Apixaban 5 Mg Tablet) 10 mg PO Q12H [facility] Stop: 02/11/22 02:16 Last Admin: 02/07/22 03:18 Dose: 10 mg Documented By: GRECIA Aspirin (Aspirin Enteric Coated 81 Mg Tablet.) 81 mg PO BEDTIME [facility] Last Admin: 02/06/22 22:35 Dose: 81 mg Documented By: GRECIA Atorvastatin Calcium (Atorvastatin Calcium 10 Mg Tablet) 10 mg PO BEDTIME [facility] Last Admin: 02/06/22 22:35 Dose: 10 mg Documented By: GRECIA Dextrose (Dextrose 50 % 25 Gm/50 Ml Syringe) 25 gm IVPUSH Q15M PRN; Protocol PRN Reason: per Hypoglycemia Standing Ord. Docusate Sodium (Docusate Sodium 100 Mg Capsule) 100 mg PO BID [facility] Last Admin: 02/07/22 08:13 Dose: Not Given Documented By: SORAYA Non-Admin Reason: Patient Refused Glipizide (Glipizide 10 Mg Tablet) 10 mg PO BID [facility] Last Admin: 02/07/22 08:13 Dose: Not Given Documented By: SORAYA Non-Admin Reason: Patient Refused Glucose (Glucose Gel 15 Gm Gel..Gram.) 15 gm PO Q15M PRN; Protocol PRN Reason: per Hypoglycemia Standing Ord. Piperacillin Sod/Tazobactam (Sod 3.375 gm/ Sodium Chloride) 50 mls @ 100 mls/hr IV Q6H [facility] Last Admin: 02/07/22 08:14 Dose: Not Given Documented By: SORAYA Non-Admin Reason: Patient Refused Vancomycin HCl 1,250 mg/ (Sodium Chloride) 250 mls @ 166.667 mls/hr IV Q12H [facility] Last Admin: 02/07/22 08:13 Dose: Not Given Documented By: SORAYA Non-Admin Reason: Patient Refused Insulin Human Lispro (Insulin Lispro 100 Unit/Ml 3 Ml Vial) [facility]; Protocol Last Admin: 02/07/22 08:12 Dose: Not Given Documented By: SORAYA Non-Admin Reason: Patient Refused Lisinopril (Lisinopril 5 Mg Tablet) 5 mg PO DAILY [facility]; Protocol Last Admin: 02/07/22 08:13 Dose: Not Given Documented By: SORAYA Non-Admin Reason: Patient Refused Melatonin (Melatonin 3 Mg Tablet) 6 mg PO BEDTIME PRN PRN Reason: Insomnia Metformin HCl (Metformin Hcl 1,000 Mg Tablet) 1,000 mg PO BIDAC [facility] Last Admin: 02/07/22 08:13 Dose: Not Given Documented By: SORAYA Non-Admin Reason: Patient Refused Omeprazole (Omeprazole 20 Mg Sravanthi.) 20 mg PO DAILY@0630 [facility] Last Admin: 02/06/22 06:33 Dose: 20 mg Documented By: BETHANY Pharmacy Consult (Consult Rx Perform Med Rec) 1 each MISCELLANE ONCE PRN PRN Reason: Consult order Pharmacy Consult (Consult Rx Vancomycin Dosing) 1 each MISCELLANE DAILY PRN PRN Reason: Consult order Senna (Sennosides 8.6 Mg Tablet) 17.2 mg PO BEDTIME PRN PRN Reason: Constipation Sitagliptin Phosphate (Sitagliptin Phosphate 100 Mg Tablet) 100 mg PO DAILY [facility] Last Admin: 02/07/22 08:13 Dose: Not Given Documented By: SORAYA Non-Admin Reason: Patient Refused Sodium Chloride (0.9 % Sodium Chloride Flush 3 Ml Syringe) 3 ml IVFLUSH QSHIFT [facility] Last Admin: 02/07/22 08:13 Dose: Not Given Documented By: SORAYA Non-Admin Reason: Patient Refused Tamsulosin HCl (Tamsulosin Hcl 0.4 Mg Capsule) 0.8 mg PO BEDTIME [facility] Last Admin: 02/06/22 22:34 Dose: 0.8 mg Documented By: GRECIA Tramadol HCl (Tramadol Hcl 50 Mg Tablet) 50 mg PO QID PRN PRN Reason: severe pain Last Admin: 02/05/22 09:06 Dose: 50 mg Documented By: CHONG Vitamin D (Cholecalciferol (Vitamin D3) 25 Mcg Tablet) 50 mcg PO DAILY [facility] Last Admin: 02/07/22 08:13 Dose: Not Given Documented By: SORAYA Non-Admin Reason: Patient Refused Labs CBC & Chem 7: 02/05/22 08:53 02/07/22 06:07 Labs: Laboratory Results - last 24 hr 02/06/22 02/06/22 02/06/22 11:19 16:13 19:24 Estim Creat Clear Calc Estimated GFR POC Glucose 339 H 289 H 371 H* Vancomycin Trough 02/06/22 02/07/22 02/07/22 21:18 06:07 07:41 Estim Creat Clear Calc 91.3 Estimated GFR > 60 POC Glucose 193 H Vancomycin Trough 8.6 L Microbiology Microbiology Results: Microbiology 02/05/22 16:02 Gram Stain - Final Bronchial Washings Routine Culture - Preliminary Gram negative shayan Assessment and Plan (1) Cavitary lesion of lung: Status: Acute (2) Pneumonia: Status: Acute (3) Pulmonary embolism: Status: Acute (4) Sepsis: Status: Acute (5) Acute UTI: Status: Acute Plan 66-year-old male with a past medical history of hypertension, hyperlipidemia, diabetes, BPH, 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 He declined all medi cations this morning and infusions overnight. 1- Cavitary lesion RUL- respiratory symptoms improving but still having occasional sob and cough secondary to pneumonia and PE, no hypoxia -Bronchial washings gram stain wtih gram negative rods, culture pending. Fungal and AFB cultures pending. Tspot results pending -Continue isolation precautions for tb per ID -Continue vanco and zosyn to treat possible early lung abscess. Goal- transition to po Augmentin and doxy once cultures resulted and discharge home 2-Sepsis- resolved -secondary to pneumonia -Continue vanco and zosyn as above 3-Acute Pulmonary embolism -Continue eliquis 5mg BID 4-Weakness and muscle aches- secondary to deconditioning from being wheelchair bound at home for 17 years -Continue with PT. Patient with impulsivity with functional mobility and decreased safety awareness and at increased risk of falls as a result -Recommending STR on discharge for optimal functional gains -Declined PT service this am 5- UTI- improving -Continue zosyn and vanco 6- Non insulin dependent type 2 diabetes- glucose control improved -Continue SSI and home antihyperglycemics -Diabetic diet 7- BPH- stable -Continue flomax 8-HTN- stable -Continue lisinopril 9-HDL- stable -Continue atorvastatin DVT prophylaxis:? continue eliquis Code status:? Full code Patient requires ongoing inpatient management due to pneumonia with possible lung abscess and ongoing management of sepsis with IV antibiotics. He also remains on active isolation precautions until AFB cultures and Tspot are resulted to rule out active TB given cavitary lesion. Quality Stroke Does the patient have a stroke diagnosis?: No VTE Prior VTE?: No VTE Risk Level:: Medical - moderate - high VTE Device Contraindication: Treatment Not Indicated VTE Drug Contraindication: N/A - Med Ordered
[2022-02-07 11:41] LABS: Glucose, Whole Blood 267 mg/dL (60-115)
--- NOTE | 2022-02-07 12:07 | MHC.CM.PN ---
Per ROUNDS discussion, Patient is not yet medically cleared for dc (IV Vanco, IV Zosyn, Isolation/TB); PT is recommending STR and CM will continue to follow.
[2022-02-07 16:41] LABS: Glucose, Whole Blood 312 mg/dL (60-115)
[2022-02-07] MEDS: Insulin Lispro 100 UNIT/ML 3 ML VIAL SUBCUT ×2 (16:51→21:06)
[2022-02-07 20:28] LABS: Glucose, Whole Blood 166 mg/dL (60-115)
--- NOTE | 2022-02-07 20:34 | HE.PHANOTE ---
vancomycin addendum patient refused am dose of vanco and also refused the random level ordered.
[2022-02-07] MEDS: Atorvastatin Calcium 10 MG TABLET PO (21:06)
[2022-02-07] MEDS: Aspirin Enteric Coated 81 MG TABLET.DR PO (21:06)
[2022-02-07] MEDS: Tamsulosin HCL 0.4 MG CAPSULE 0.8 MG PO (21:06)
[2022-02-07] MEDS: glipiZIDE 10 MG TABLET PO (21:06)
[2022-02-07] MEDS: Docusate Sodium 100 MG CAPSULE PO (21:06)
[2022-02-07] MEDS: 0.9 % Sodium Chloride Flush 3 ML SYRINGE IVFLUSH (21:12)
[2022-02-07 21:39] LABS: Vancomycin Trough 3.5 mcg/mL (10.0-20.0)
--- NOTE | 2022-02-07 23:57 | PC.NURSE ---
Pt agreed to take PO medications. Pt will not allow this RN to attempt another IV for antibiotics. Abiodun VANN aware of the refusals that have been happening. Educated patient on the importance of these antibiotics, still refusing.
[2022-02-08] MEDS: Apixaban 5 MG TABLET 10 MG PO ×2 (02:26→15:15)
[2022-02-08] MEDS: Acetaminophen 325 MG TABLET 650 MG PO (02:27)
[2022-02-08 07:36] VITALS: BP 144/72; PULSE 85; RESP 20; TEMP 36.9; O2SAT 99
[2022-02-08 07:45] LABS: Glucose, Whole Blood 184 mg/dL (60-115)
[2022-02-08] MEDS: SITagliptin Phosphate 100 MG TABLET PO (08:21)
[2022-02-08] MEDS: glipiZIDE 10 MG TABLET PO ×2 (08:21→21:46)
[2022-02-08] MEDS: metFORMIN HCl 1,000 MG TABLET 1000 MG PO ×2 (08:21→16:59)
[2022-02-08] MEDS: Cholecalciferol (Vitamin D3) 25 MCG TABLET 50 MCG PO (08:21)
[2022-02-08] MEDS: Insulin Lispro 100 UNIT/ML 3 ML VIAL SUBCUT ×4 (08:22→21:46)
[2022-02-08] MEDS: Docusate Sodium 100 MG CAPSULE PO ×2 (08:23→21:46)
[2022-02-08] MEDS: Fluticasone Propionate Nasal 16 GM SPRAY 1 SPRAY NOSTRIL-B (08:31)
[2022-02-08] MEDS: lisinopriL 5 MG TABLET PO (08:32)
[2022-02-08 08:33] LABS: Anion Gap 13 (12-20); Blood Urea Nitrogen 6 mg/dL (9-16); Carbon Dioxide 26 mmol/L (22-29); Chloride 98 mmol/L (96-108); Creatinine Clr Calc Pharmacy 103.2; Estimated Glomerular Filt Rate > 60; Glucose Random 181 mg/dL (60-115); Potassium 3.3 mmol/L (3.3-5.1); Sodium 134 mmol/L (135-145)
[2022-02-08 11:47] VITALS: BP 143/65; PULSE 93; RESP 20; TEMP 36.9; O2SAT 95
[2022-02-08 11:49] LABS: Glucose, Whole Blood 165 mg/dL (60-115)
--- NOTE | 2022-02-08 14:29 | P.PNIM_ITS ---
Subjective Subjective Date of Service: 02/08/22 Review of Systems Follow up pna still with cough and sputum production laying in bed, wc bound Physical Exam Vital Signs: Vital Signs: Last Vital Signs Temp 98.5 F 02/08/22 11:47 Pulse 93 02/08/22 11:47 Resp 20 02/08/22 11:47 BP 143/65 H 02/08/22 11:47 Pulse Ox 95 02/08/22 11:47 O2 Del Method 02/08/22 11:47 O2 Flow Rate 2 02/05/22 16:32 BMI result Body Mass Index 27.3 Appearing in no acute distress lung sounds rhonchi heart regular rate rhythm, clear S1, S2 positive bowel sounds, abdomen is soft, nontender neuro patient is alert x3, no focal deficits Objective Data Active Medications Acetaminophen (Acetaminophen 325 Mg Tablet) 650 mg PO Q6H PRN PRN Reason: Pain, Mild (Pain Scale 1-3) Last Admin: 02/08/22 02:27 Dose: 650 mg Documented By: CIRO Apixaban (Apixaban 5 Mg Tablet) 10 mg PO Q12H [facility] Stop: 02/11/22 02:16 Last Admin: 02/08/22 02:26 Dose: 10 mg Documented By: CIRO Aspirin (Aspirin Enteric Coated 81 Mg Tablet.) 81 mg PO BEDTIME [facility] Last Admin: 02/07/22 21:06 Dose: 81 mg Documented By: JUSTICE Atorvastatin Calcium (Atorvastatin Calcium 10 Mg Tablet) 10 mg PO BEDTIME [facility] Last Admin: 02/07/22 21:06 Dose: 10 mg Documented By: JUSTICE Dextrose (Dextrose 50 % 25 Gm/50 Ml Syringe) 25 gm IVPUSH Q15M PRN; Protocol PRN Reason: per Hypoglycemia Standing Ord. Docusate Sodium (Docusate Sodium 100 Mg Capsule) 100 mg PO BID [facility] Last Admin: 02/08/22 08:23 Dose: 100 mg Documented By: PATTI Fluticasone Propionate (Fluticasone Propionate Nasal 16 Gm [place]) 1 spray NO STRIL-B DAILY [facility] Last Admin: 02/08/22 08:31 Dose: 1 spray Documented By: PATTI Glipizide (Glipizide 10 Mg Tablet) 10 mg PO BID [facility] Last Admin: 08/20/22 08:21 Dose: 10 mg Documented By: PATTI Glucose (Glucose Gel 15 Gm Gel..Gram.) 15 gm PO Q15M PRN; Protocol PRN Reason: per Hypoglycemia Standing Ord. Piperacillin Sod/Tazobactam (Sod 3.375 gm/ Sodium Chloride) 50 mls @ 100 mls/hr IV Q6H [facility] Last Admin: 02/08/22 05:22 Dose: Not Given Documented By: CIRO Non-Admin Reason: No Access Vancomycin HCl 1,250 mg/ (Sodium Chloride) 250 mls @ 166.667 mls/hr IV Q12H [facility] Last Admin: 02/07/22 22:11 Dose: Not Given Documented By: JUSTICE Non-Admin Reason: Patient Refused Insulin Human Lispro (Insulin Lispro 100 Unit/Ml 3 Ml Vial) 0 unit SUBCUT QIDACHS [facility]; Protocol Last Admin: 02/08/22 11:54 Dose: 4 unit Documented By: PATTI Lisinopril (Lisinopril 5 Mg Tablet) 5 mg PO DAILY [facility]; Protocol Last Admin: 02/08/22 08:32 Dose: 5 mg Documented By: PATTI Melatonin (Melatonin 3 Mg Tablet) 6 mg PO BEDTIME PRN PRN Reason: Insomnia Metformin HCl (Metformin Hcl 1,000 Mg Tablet) 1,000 mg PO BIDAC [facility] Last Admin: 02/08/22 08:21 Dose: 1,000 mg Documented By: PATTI Omeprazole (Omeprazole 20 Mg Capsule.Dr) 20 mg PO DAILY@0630 [facility] Last Admin: 02/08/22 05:22 Dose: Not Given Documented By: CIRO Non-Admin Reason: Patient Refused Pharmacy Consult (Consult Rx Perform Med Rec) 1 each MISCELLANE ONCE PRN PRN Reason: Consult order Pharmacy Consult (Consult Rx Vancomycin Dosing) 1 each MISCELLANE DAILY PRN PRN Reason: Consult order Senna (Sennosides 8.6 Mg Tablet) 17.2 mg PO BEDTIME PRN PRN Reason: Constipation Sitagliptin Phosphate (Sitagliptin Phosphate 100 Mg Tablet) 100 mg PO DAILY [facility] Last Admin: 02/08/22 08:21 Dose: 100 mg Documented By: PATTI Sodium Chloride (0.9 % Sodium Chloride Flush 3 Ml Syringe) 3 ml IVFLUSH QSHIFT [facility] Last Admin: 02/08/22 08:32 Dose: Not Given Documented By: PATTI Non-Admin Reason: No Access Tamsulosin HCl (Tamsulosin Hcl 0.4 Mg Capsule) 0.8 mg PO BEDTIME [facility] Last Admin: 02/07/22 21:06 Dose: 0.8 mg Documented By: JUSTICE Tramadol HCl (Tramadol Hcl 50 Mg Tablet) 50 mg PO QID PRN PRN Reason: severe pain Last Admin: 02/05/22 09:06 Dose: 50 mg Documented By: CHONG Vitamin D (Cholecalciferol (Vitamin D3) 25 Mcg Tablet) 50 mcg PO DAILY [facility] Last Admin: 02/08/22 08:21 Dose: 50 mcg Documented By: PATTI Labs CBC & Chem 7: 02/05/22 08:53 02/08/22 08:09 Labs: Laboratory Results - last 24 hr 02/07/22 02/07/22 02/07/22 16:36 20:23 21:04 Anion Gap Estim Creat Clear Calc Estimated GFR POC Glucose 312 H 166 H Random Glucose Calcium Vancomycin Trough 3.5 L 02/08/22 02/08/22 02/08/22 07:34 08:09 11:38 Anion Gap 13 Estim Creat Clear Calc 103.2 Estimated GFR > 60 POC Glucose 184 H 165 H Random Glucose 181 H Calcium 8.0 L Vancomycin Trough Microbiology Microbiology Results: Microbiology 02/05/22 16:02 Gram Stain - Final Bronchial Washings Routine Culture - Final Pseudomonas aeruginosa Assessment and Plan (1) Cavitary lesion of lung: Status: Acute (2) Pneumonia: Status: Acute (3) Pulmonary embolism: Status: Acute (4) Sepsis: Status: Acute (5) Acute UTI: Status: Acute Plan 66-year-old male with a past medical history of hypertension, hyperlipidemia, diabetes, BPH, 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 He declined all medications this morning and infusions overnight. RUL Cavitary lesion s/p Bronchial washings gram stain showing Pseudomonas aeruginosa susceptible to Levaquin, culture, Fungal, AFB and Tspot cultures pending. Continue isolation precautions for tb per ID No IV access at this time. Will change to Levaquin and doxycycline. Sepsis secondary to pneumonia. resolved Initially treated with vancomycin and Zosyn changed to Levaquin and doxycycline for now No hypoxia noted Acute Pulmonary embolism Continue eliquis 5mg BID Hypercoagulable workup UTI initially treated with vancomycin and Zosyn Changed to Levaquin Diabetes mellitus 2 sliding scale, ADA diet BPH Flomax Hypertension Stable Continue lisinopril Hyperlipidemia Continue statin DVT prophylaxis:? continue eliquis Code status:? Full code Patient requires ongoing inpatient management due to pneumonia with possible lung abscess and ongoing management of sepsis with IV antibiotics. He also remains on active isolation precautions until AFB cultures and Tspot are resulted to rule out active TB given cavitary lesion. Quality Stroke Does the patient have a stroke diagnosis?: No VTE Prior VTE?: No VTE Risk Level:: Medical - moderate - high VTE Device Contraindication: Treatment Not Indicated VTE Drug Contraindication: N/A - Med Ordered
[2022-02-08] MEDS: levoFLOXacin 750 MG TABLET PO (15:15)
[2022-02-08 15:48] VITALS: BP 148/68; PULSE 106; RESP 20; TEMP 37.2; O2SAT 98
[2022-02-08 16:08] LABS: Glucose, Whole Blood 170 mg/dL (60-115)
[2022-02-08 19:51] VITALS: BP 107/57; PULSE 116; RESP 18; TEMP 37.5; O2SAT 97
[2022-02-08 20:32] LABS: Glucose, Whole Blood 162 mg/dL (60-115)
[2022-02-08] MEDS: Aspirin Enteric Coated 81 MG TABLET.DR PO (21:46)
[2022-02-08] MEDS: Atorvastatin Calcium 10 MG TABLET PO (21:46)
[2022-02-08] MEDS: Tamsulosin HCL 0.4 MG CAPSULE 0.8 MG PO (21:46)
[2022-02-08 23:54] VITALS: BP 139/63; PULSE 120; RESP 20; TEMP 37.4; O2SAT 95
[2022-02-09 01:27] LABS: TS Negative Control Passed; TS Panel A 0; TS Panel B 0; TS Positive Control Passed; TSpotTB Negative (Negative)
[2022-02-09] MEDS: Apixaban 5 MG TABLET 10 MG PO ×2 (02:47→15:11)
[2022-02-09 03:19] VITALS: BP 124/74; PULSE 119; RESP 20; TEMP 36.7; O2SAT 96
[2022-02-09] MEDS: Omeprazole 20 MG CAPSULE.DR PO (06:14)
[2022-02-09 07:33] VITALS: BP 131/77; PULSE 108; RESP 16; TEMP 37.2; O2SAT 95
[2022-02-09 07:36] LABS: Glucose, Whole Blood 112 mg/dL (60-115)
[2022-02-09 08:10] LABS: Creatinine Clr Calc Pharmacy 100.3; Estimated Glomerular Filt Rate > 60
[2022-02-09] MEDS: Cholecalciferol (Vitamin D3) 25 MCG TABLET 50 MCG PO (08:47)
[2022-02-09] MEDS: lisinopriL 5 MG TABLET PO (08:48)
[2022-02-09] MEDS: SITagliptin Phosphate 100 MG TABLET PO (08:48)
[2022-02-09] MEDS: metFORMIN HCl 1,000 MG TABLET 1000 MG PO (08:48)
[2022-02-09] MEDS: glipiZIDE 10 MG TABLET PO (08:48)
--- NOTE | 2022-02-09 11:09 | HO.PM.IMPN ---
Subjective Subjective Date of Service: 02/09/22 Review of Systems Follow up pna still with cough and sputum production laying in bed, wc bound Physical Exam Vital Signs: Vital Signs: Last Vital Signs Temp 99.0 F 02/09/22 07:33 Pulse 108 H 02/09/22 07:33 Resp 16 02/09/22 07:33 BP 131/77 02/09/22 07:33 Pulse Ox 95 02/09/22 07:33 O2 Del Method 02/09/22 07:33 O2 Flow Rate 2 02/05/22 16:32 BMI result Body Mass Index 27.3 Appearing in no acute distress lung sounds are clear to auscultation heart regular rate rhythm, clear S1, S2 positive bowel sounds, abdomen is soft, nontender neuro patient is alert x3, no focal deficits Objective Data Active Medications Acetaminophen (Acetaminophen 325 Mg Tablet) 650 mg PO Q6H PRN PRN Reason: Pain, Mild (Pain Scale 1-3) Last Admin: 02/08/22 02:27 Dose: 650 mg Documented By: CIRO Apixaban (Apixaban 5 Mg Tablet) 10 mg PO Q12H [facility] Stop: 02/11/22 02:16 Last Admin: 02/09/22 02:47 Dose: 10 mg Documented By: GRECIA Aspirin (Aspirin Enteric Coated 81 Mg Tablet.) 81 mg PO BEDTIME [facility] Last Admin: 02/08/22 21:46 Dose: 81 mg Documented By: NALDO Atorvastatin Calcium (Atorvastatin Calcium 10 Mg Tablet) 10 mg PO BEDTIME [facility] Last Admin: 02/08/22 21:46 Dose: 10 mg Documented By: NALDO Dextrose (Dextrose 50 % 25 Gm/50 Ml Syringe) 25 gm IVPUSH Q15M PRN; Protocol PRN Reason: per Hypoglycemia Standing Ord. Docusate Sodium (Docusate Sodium 100 Mg Capsule) 100 mg PO BID [facility] Last Admin: 02/09/22 09:52 Dose: Not Given Documented By: CHARMAINE Non-Admin Reason: Patient Refused Doxycycline Hyclate (Doxycycline Hyclate 100 Mg Tablet) 100 mg PO BID [facility] Last Admin: 02/09/22 08:48 Dose: 100 mg Documented By: CHARMAINE Fluticasone Propionate (Fluticasone Propionate Nasal 16 Gm [place]) 1 spray NOSTRIL-B DAILY [facility] Last Admin: 02/08/22 08:31 Dose: 1 spray Documented By: PATTI Glipizide (Glipizide 10 Mg Tablet) 10 mg PO BID [facility] Last Admin: 02/09/22 08:48 Dose: 10 mg Documented By: CHARMAINE Glucose (Glucose Gel 15 Gm Gel..Gram.) 15 gm PO Q15M PRN; Protocol PRN Reason: per Hypoglycemia Standing Ord. Insulin Human Lispro (Insulin Lispro 100 Unit/Ml 3 Ml Vial) 0 unit SUBCUT QIDACHS [facility]; Protocol Last Admin: 02/09/22 07:49 Dose: Not Given Documented By: CHARMAINE Non-Admin Reason: No Insulin Coverage Levofloxacin (Levofloxacin 750 Mg Tablet) 750 mg PO Q24H [facility] Last Admin: 02/08/22 15:15 Dose: 750 mg Documented By: PATTI Lisinopril (Lisinopril 5 Mg Tablet) 5 mg PO DAILY [facility]; Protocol Last Admin: 02/09/22 08:48 Dose: 5 mg Documented By: CHARMAINE Melatonin (Melatonin 3 Mg Tablet) 6 mg PO BEDTIME PRN PRN Reason: Insomnia Metformin HCl (Metformin Hcl 1,000 Mg Tablet) 1,000 mg PO BIDAC [facility] Last Admin: 02/09/22 08:48 Dose: 1,000 mg Documented By: CHARMAINE Omeprazole (Omeprazole 20 Mg Capsule.Dr) 20 mg PO DAILY@0630 [facility] Last Admin: 02/09/22 06:14 Dose: 20 mg Documented By: GRECIA Pharmacy Consult (Consult Rx Perform Med Rec) 1 each MISCELLANE ONCE PRN PRN Reason: Consult order Pharmacy Consult (Consult Rx Vancomycin Dosing) 1 each MISCELLANE DAILY PRN PRN Reason: Consult order Senna (Sennosides 8.6 Mg Tablet) 17.2 mg PO BEDTIME PRN PRN Reason: Constipation Sitagliptin Phosphate (Sitagliptin Phosphate 100 Mg Tablet) 100 mg PO DAILY [facility] Last Admin: 02/09/22 08:48 Dose: 100 mg Documented By: CHARMAINE Sodium Chloride (0.9 % Sodium Chloride Flush 3 Ml Syringe) 3 ml IVFLUSH QSHIFT [facility] Last Admin: 02/09/22 09:02 Dose: Not Given Documented By: CHARMAINE Non-Admin Reason: No Access Tamsulosin HCl (Tamsulosin Hcl 0.4 Mg Capsule) 0.8 mg PO BEDTIME [facility] Last Admin: 02/08/22 21:46 Dose: 0.8 mg Documented By: NALDO Vitamin D (Cholecalciferol (Vitamin D3) 25 Mcg Tablet) 50 mcg PO DAILY [facility] Last Admin: 02/09/22 08:47 Dose: 50 mcg Documented By: CHARMAINE Labs CBC & Chem 7: 02/05/22 08:53 02/09/22 07:39 Labs: Laboratory Results - last 24 hr 02/06/22 02/08/22 02/08/22 12:14 11:38 15:55 Estim Creat Clear Calc Estimated GFR POC Glucose 165 H 170 H TB Test (T-Spot) Com Negative TB Test Nil Control Passed TB Test Panel A 0 TB Test Panel B 0 TB Test Positive Cntrl Passed 02/08/22 02/09/22 02/09/22 20:13 07:30 07:39 Estim Creat Clear Calc 100.3 Estimated GFR > 60 POC Glucose 162 H 112 TB Test (T-Spot) Com TB Test Nil Control TB Test Panel A TB Test Panel B TB Test Positive Cntrl Microbiology Microbiology Results: Microbiology 02/03/22 16:09 Blood Culture - Final Blood - Venous No growth after 5 days. 02/03/22 16:18 Blood Culture - Final Blood - Venous No growth after 5 days. 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 He declined all medications this morning and infusions overnight. RUL Cavitary lesion s/p Bronchial washings gram stain showing Pseudomonas aeruginosa susceptible to Levaquin, culture, Fungal, AFB and pending. Continue isolation precautions for tb per ID No IV access at this time. Will change to Levaquin and doxycycline. Tspot negative Sepsis secondary to pneumonia. resolved Initially treated with vancomycin and Zosyn changed to Levaquin and doxycycline for now No hypoxia noted Acute Pulmonary embolism Continue eliquis 5mg BID Hypercoagulable workup UTI initially treated with vancomycin and Zosyn Changed to Levaquin Diabetes mellitus 2 sliding scale, ADA diet BPH Flomax Hypertension Stable Continue lisinopril Hyperlipidemia Continue statin DVT prophylaxis:? continue eliquis Code status:? Full code Attending Dr. Andrade Patient requires ongoing inpatient management due to pneumonia with possible lung abscess and ongoing management of sepsis with IV antibiotics. He also remains on active isolation precautions until AFB cultures and Tspot are resulted to rule out active TB given cavitary lesion. Quality Stroke Does the patient have a stroke diagnosis?: No VTE Prior VTE?: No VTE Risk Level:: Medical - moderate - high VTE Device Contraindication: Treatment Not Indicated VTE Drug Contraindication: N/A - Med Ordered
[2022-02-09 11:13] LABS: Glucose, Whole Blood 76 mg/dL (60-115)
[2022-02-09 11:29] VITALS: BP 134/69; PULSE 108; RESP 20; TEMP 37.2; O2SAT 96
[2022-02-09] MEDS: levoFLOXacin 750 MG TABLET PO (15:11)
[2022-02-09 15:45] VITALS: BP 123/64; PULSE 92; RESP 16; TEMP 36.7; O2SAT 99
[2022-02-09 16:50] LABS: Glucose, Whole Blood 56 mg/dL (60-115)
[2022-02-09] MEDS: Glucose Gel 15 GM GEL..GRAM. PO (17:06)
[2022-02-09 17:22] LABS: Glucose, Whole Blood 72 mg/dL (60-115)
[2022-02-09 17:41] LABS: Glucose, Whole Blood 63 mg/dL (60-115)
[2022-02-09 18:16] LABS: Glucose, Whole Blood 70 mg/dL (60-115)
[2022-02-09 19:30] LABS: Glucose, Whole Blood 82 mg/dL (60-115)
[2022-02-09 20:00] VITALS: BP 120/68; PULSE 103; RESP 16; TEMP 36.7; O2SAT 98
[2022-02-09 20:59] LABS: Glucose, Whole Blood 96 mg/dL (60-115)
[2022-02-09] MEDS: Tamsulosin HCL 0.4 MG CAPSULE 0.8 MG PO (21:17)
[2022-02-09] MEDS: Aspirin Enteric Coated 81 MG TABLET.DR PO (21:18)
[2022-02-09] MEDS: Atorvastatin Calcium 10 MG TABLET PO (21:18)
[2022-02-09 21:27] LABS: Glucose, Whole Blood 103 mg/dL (60-115)
[2022-02-10] VITALS: BP 116/58; PULSE 108; RESP 16; TEMP 37.3; O2SAT 96
[2022-02-10] MEDS: Apixaban 5 MG TABLET 10 MG PO ×2 (01:12→15:21)
[2022-02-10 04:00] VITALS: BP 154/71; PULSE 86; RESP 16; TEMP 36.2; O2SAT 98
[2022-02-10] MEDS: Fluticasone Propionate Nasal 16 GM SPRAY 1 SPRAY NOSTRIL-B (05:24)
[2022-02-10 07:44] VITALS: BP 96/65; PULSE 93; RESP 18; TEMP 36.4; O2SAT 99
[2022-02-10 07:57] LABS: Glucose, Whole Blood 75 mg/dL (60-115)
[2022-02-10] MEDS: Docusate Sodium 100 MG CAPSULE PO (08:54)
[2022-02-10] MEDS: Cholecalciferol (Vitamin D3) 25 MCG TABLET 50 MCG PO (08:54)
--- NOTE | 2022-02-10 11:21 | PM.DS ---
DS: Providers Provider Date of Service: 02/10/22 Date of admission: 02/03/22 20:27 Primary care physician: Unknown Physician Consults: 02/03/22 20:34 Consult to Infectious Diseases Routine Consulting Provider: Rosalina Mota Reason for consultation: cavitary lung lesion 02/04/22 05:42 Consult to Hematology / Oncology Routine Consulting Provider: Celine Peralta Reason for consultation: Cavitaly lung lesion; pulm nodules 02/04/22 16:08 Consult to Pulmonology Routine Consulting Provider: Emery Lynn Reason for consultation: ?early lung abscess, cavitary lesion consider bronch per ID Has provider been notified: No Attending physician on discharge: Alex Coronel Discharging clinician: Jojo Ba DS: Diagnosis Discharge Diagnosis (1) Cavitary lesion of lung: Status: Acute (2) Pneumonia: Status: Acute (3) Pulmonary embolism: Status: Acute (4) Sepsis: Status: Acute (5) Acute UTI: Status: Acute DS: Summary Hospital Course Hospital Course: HP as per admitting provider 66-year-old male with a past medical history of hypertension, hyperlipidemia, diabetes, BPH, chronic bilateral lower extremity weakness secondary to work related injury- wheelchair-bound presented to the hospital today with a chief complaint of generalized weakness.?Patient reported that over the past 1-2 weeks he has been having generalized weakness, has not been eating well.? Denies any fevers.? Reports having dry cough.?Denies any abdominal pain nausea vomiting or urinary frequency urgency or dysuria.?Denies any chest pain or palpitations.?Denies any recent travel or sick contacts.?Patient denies any night sweats or weight loss. Mentions that yesterday he was trying to get to the bathroom, fell down and was not able to get up and stayed on the floor all night.? Denies any head strike or loss of consciousness.?Denies any back pain or hip pain.? 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 Multiple smaller semi-solid right lung nodules.? Infectious versus neoplastic.? On labs noted to have mildly elevated leukocytosis, mildly elevated CPK, abnormal urinalysis consistent with UTI.? Patient was given empiric IV antibiotics.? Admitted to the hospital for further management . RUL Cavitary lesion s/p Bronchial washings gram stain showing Pseudomonas aeruginosa susceptible to Levaquin, culture, Fungal, AFB and pending. No IV access at this time. Will change to? Levaquin and doxycycline. Tspot negative Levaquin 750 mg daily for 14 days Follow-up with pulmonology, Dr. Lynn after treatment completion Sepsis secondary to pneumonia. resolved Initially treated with vancomycin and Zosyn changed to Levaquin and doxycycline No hypoxia noted Acute Pulmonary embolism Continue eliquis 10mg BID for 7 days then 5mg bid Hypercoagulable workup pending UTI initially treated with vancomycin and Zosyn Changed to Levaquin Diabetes mellitus 2 follow blood sugars closely and continue home medications BPH Flomax Hypertension Stable Continue lisinopril Hyperlipidemia Continue statin Time Spent with Patient Time attestation: Total time spent providing and/or coordinating discharge services: Discharge coordination time: Greater than 30 minutes Quality: Safe Use of Opioids Does Pt have an Active Cancer Diagnosis on the Problem List?: No Quality: Stroke Does the patient have a stroke diagnosis?: No Physical Exam Vital Signs: Vital Signs: Last Vital Signs Temp 97.6 F 02/10/22 07:44 Pulse 93 02/10/22 07:44 Resp 18 02/10/22 07:44 BP 96/65 02/10/22 07:44 Pulse Ox 99 02/10/22 07:44 O2 Del Method 02/10/22 07:44 O2 Flow Rate 2 02/05/22 16:32 BMI result Body Mass Index 27.3 Appearing in no acute distress head is normocephalic atraumatic eyes pupils are PERRLA sclera is anicteric mouth throat mucous membranes are intact and moist neck is supple no lymphadenopathy, no JVD noted lung sounds are clear to auscultation heart regular rate rhythm, clear S1, S2 positive bowel sounds, abdomen is soft, nontender neuro patient is alert x3, no focal deficits Mainly wheelchair bound DS: Data Data Completed and Pending Pending studies at discharge: Pending at discharge 02/05/22 16:02 Cytology [PTH] Stat Labs on day of discharge: Laboratory Results - last 24 hr 02/09/22 02/09/22 02/09/22 16:46 17:18 17:37 POC Glucose 56 L* 72 63 02/09/22 02/09/22 02/09/22 18:12 19:01 19:26 POC Glucose 70 96 82 02/09/22 02/10/22 21:18 07:47 POC Glucose 103 75 Discharge Plan Discharge Anticipated Discharge Date/Time: 02/10/22 11:10 Patient Disposition: Home Health Service Discharge Diagnosis: Right upper lobe cavitary lesion Sepsis secondary to pneumonia Acute pulmonary embolism UTI Referrals: BELÉN [Other] - 1 Week Emery Lynn MD [Physician] - 1 Week ( cavitary lesion) Discharge Medications: New levofloxacin 750 mg Tablet 750 mg PO Q24H 28 Days Qty: 28 0RF Continued atorvastatin 10 mg tablet 1 tab PO BEDTIME polyvinyl alcohol 1.4 % drops 1 drp ophthalmic (eye) QID PRN (Reason: Pain) glipizide 10 mg tablet 1 tab PO BID aspirin 81 mg tablet,delayed release (DR/EC) 1 tab PO BEDTIME tramadol 50 mg tablet 1 tab PO QID PRN (Reason: severe pain) tamsulosin 0.4 mg capsule 2 cap PO BEDTIME metformin 1,000 mg tablet 1 tab PO AC docusate sodium 100 mg capsule 1 cap PO BID omeprazole 20 mg capsule,delayed release(DR/EC) 1 cap PO DAILY lisinopril 5 mg tablet 1 tab PO DAILY Januvia 100 mg tablet 1 tab PO DAILY cholecalciferol (vitamin D3) [Vitamin D3] 50 mcg (2,000 unit) capsule 1 cap PO DAILY Discharge Orders: Discharge Order (Routine); Ordered 02/10/22 Ordered By: Jojo Ba Diet: Advance to usual diet Activity on Discharge: As tolerated Stand Alone Forms: Patient Portal Discharge page Care Plan Goals: Take medications as prescribed Monitor for any overt signs of bleeding as you have been started on anticoagulation medication Health Concerns: Right upper lobe cavitary lesion Sepsis secondary to pneumonia Acute pulmonary embolism UTI Plan of Treatment: Follow-up with primary care provider /[facility] within the next 2 weeks for management of new medications including Eliquis that was prescribed for your pulmonary embolism Follow-up with insurance verification clerk for further management of cavitary lesion, You will be on Levaquin for 4 weeks Monitor blood pressures closely to avoid hypotension: Low blood pressure Monitor your blood sugars closely to avoid hypoglycemia: Low blood sugar Your T spot was negative AFB and fungal cultures pending Assessment: see discharge summary Discharge Date/Time: 02/10/22 20:48
--- NOTE | 2022-02-10 11:29 | MHC.CM.PN ---
Patient has been medically cleared for dc to home today, with services. Per discussion with TORNADO CHASER/Jojo, Patient is not likely to benefit from home PT. With [facility] insurance, a RN evaluates Patient within 48 hours after dc and can provide services further PRN. IMM addressed with Patient at bedside and original has been given to him and a copy has been placed on the chart.
[2022-02-10 11:43] VITALS: BP 173/77; PULSE 100; RESP 17; TEMP 37.3; O2SAT 99
--- NOTE | 2022-02-10 11:52 | MHC.CM.PN ---
Per MICROFICHE CAMERA OPERATOR/Jojo, Patient has refused PT's recommendation for STR and he insists on returning home. Patient will dc to home today at 5PM, via [facility]. CM spoke with Patient's Brother/HCP/Harry @ [phone], who explained that he is at work until 4:30 PM today. CM informed Harry that the ambulance will be set up to poultry picker Patient at 5PM, in order for Harry to be at Patient's home after work to assist with Patient settling in.
[2022-02-10 11:59] LABS: Glucose, Whole Blood 164 mg/dL (60-115)
[2022-02-10 15:08] VITALS: BP 132/73; PULSE 91; RESP 18; TEMP 36.7; O2SAT 98
[2022-02-10] MEDS: levoFLOXacin 750 MG TABLET PO (15:21)
[2022-02-10] MEDS: 0.9 % Sodium Chloride Flush 3 ML SYRINGE IVFLUSH (15:21)
[2022-02-10 16:12] LABS: Glucose, Whole Blood 166 mg/dL (60-115)
[2022-02-14 19:52] LABS: Anti-Thrombin III Antigen 71 % (80-120)
[2022-02-14 21:32] LABS: Protein C Activity 113 % (70-180); Protein S Activity rflx Tot&Fr 78 % (70-150)
[2022-02-16 00:17] LABS: DRVVT Confirmation Negative (Negative); Hexagonal Phase Neutralization Positive (Negative)
[2022-02-16 00:51] LABS: DRVVT 1:1 Mix Interpretation Not Indicated; PTT (LAC) Screen 68 sec (<=40); Thrombin Clotting Time 15 sec (13-19)
[2022-02-16 01:57] LABS: Factor V Leiden NEGATIVE
== END 2022-02-10 20:48 | disposition home health service (06) | DRG 871 ==
LOC: HO.ED 19:03 → HO.EDOVER 20:43 → HO.IMC 02-04 19:34
PROVIDERS: Internal Medicine; Internal Medicine Pulmonary Disease; Physician Assistant; Admitting Provider Hospitalist; Emergency Provider Emergency Medicine; Visit Provider Nurse Practitioner Acute Care
PROC: 0BJ08ZZ Inspection of Tracheobronchial Tree, Via Natural or Artificial Opening Endoscopic (ICD-10-PCS; CPT 31622; principal; 2022-02-05 14:30)
DX: A41.9 Sepsis, unspecified organism (principal); I26.93 Single subsegmental thrombotic pulmonary embolism without acute cor pulmonale; J15.1 Pneumonia due to Pseudomonas; N39.0 Urinary tract infection, site not specified; J98.4 Other disorders of lung; N40.0 Benign prostatic hyperplasia without lower urinary tract symptoms; Z91.81 History of falling; Z20.822 Contact with and (suspected) exposure to COVID-19; Z99.3 Dependence on wheelchair; Z79.82 Long term (current) use of aspirin; Z79.84 Long term (current) use of oral hypoglycemic drugs; Z79.899 Other long term (current) drug therapy
CPT/HCPCS: 36415; 71045; 71250; 71275; 74176; 76705; 80048; 80076; 80202; 81001; 81241; 82550; 82565; 82947; 83605; 83690; 83880; 84484; 85007; 85025; 85027; 85301; 85302; 85303; 85305; 85306; 85379; 85597; 85613; 85730; 86481; 87040; 87071; 87077; 87102; 87116; 87186; 87205; 87635; 88112; 88305; 88312; 93005; 96374; 97163; 97530; 99285; J0171; J0696; J1100; J1650; J2250; J2405; J2543; J3010; J3370; Q9967

== ENCOUNTER 2022-02-15 09:26 | Emergency (ER) | payer OTHER, SELFPAY ==
[2022-02-15 09:41] VITALS: BP 120/70; BP 122/63; PULSE 104; PULSE 95; RESP 16; TEMP 37.3; O2SAT 94; O2SAT 97; BMI 34.9
--- NOTE | 2022-02-15 09:55 | ED_ITS ---
HPI - Skin/Abscess/Foreign Bdy General Chief complaint: Skin/Abscess/Foreign Body Stated complaint: groin pain per ems Time Seen by Provider: 02/15/22 09:38 Source: patient Mode of arrival: ambulatory Limitations: language barrier (Nicaraguan-speaking medical attendant utilized) History of Present Illness HPI narrative: Patient presents emergency department for evaluation of a rash to the genitals, bilateral groin, and buttocks. He states that this has been present for 2-3 weeks. Overall at a seems to be getting worse, and more uncomfortable. He has noticed small amounts of bleeding from the areas of open skin. 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 However, he does state that he has a new ENDLESS STEAMER TENDER starting today. Related Data Home Medications Medication Instructions Recorded Confirmed aspirin 81 mg tablet,delayed 1 tab PO BEDTIME 02/03/22 02/03/22 release atorvastatin 10 mg tablet 1 tab PO BEDTIME 02/03/22 02/03/22 cholecalciferol (vitamin D3) 50 1 cap PO DAILY 02/03/22 02/03/22 mcg (2,000 unit) capsule (Vitamin D3) docusate sodium 100 mg capsule 1 cap PO BID 02/03/22 02/03/22 glipizide 10 mg tablet 1 tab PO BID 02/03/22 02/03/22 lisinopril 5 mg tablet 1 tab PO DAILY 02/03/22 02/03/22 metformin 1,000 mg tablet 1 tab PO AC 02/03/22 02/03/22 omeprazole 20 mg capsule,delayed 1 cap PO DAILY 02/03/22 02/03/22 release polyvinyl alcohol 1.4 % eye drops 1 drp ophthalmic (eye) QID PRN Pain 02/03/22 02/03/22 sitagliptin 100 mg tablet (Januvia) 1 tab PO DAILY 02/03/22 02/03/22 tamsulosin 0.4 mg capsule 2 cap PO BEDTIME 02/03/22 02/03/22 tramadol 50 mg tablet 1 tab PO QID PRN severe pain 02/03/22 02/03/22 Previous Rx's Medication Instructions Recorded levofloxacin 750 mg tablet 750 mg PO Q24H 4 weeks #28 tabs 02/10/22 fluconazole 150 mg tablet 150 mg PO ONCE #1 tab 02/15/22 (Diflucan) nystatin 100,000 unit/gram topical 1 appl topical BID #30 grams 02/15/22 cream Allergies Allergy/AdvReac Type Severity Reaction Status Date / Time No Known Allergies Allergy Unverified 03/08/20 16:45 Review of Systems Review of Systems: Skin: Positive genitalia rash. Genitourinary: Positive pain Yes all other systems are reviewed and are negative [facility] Past Medical History Attestation statement: The following information was validated with the patient. Source: old records reviewed Social History Social History Housing: Apartment Alcohol intake: unknown Patient Tobacco Use Status: Tobacco use Unknown Advance Directives: Yes Advance Directives Information Provided: No Advance Directives on File: No service: No Current occupational status: disabled Physical Exam Vital Signs: Vital Signs: Last Vital Signs Temp 99.1 F 02/15/22 09:41 Pulse 95 02/15/22 09:41 Resp 16 02/15/22 09:41 BP 122/63 02/15/22 09:41 Pulse Ox 97 02/15/22 09:41 O2 Del Method 02/15/22 09:41 BMI result Body Mass Index 34.9 Appearance: Alert.?Oriented to person, place and time. No acute distress.?Normal affect. Eyes: Pupils equal, round and reactive to light.? ENT: Pharynx normal.?? Neck: Normal inspection.? Neck supple.?? CVS: Heart sounds normal. Normal heart rate and rhythm.? Pulses normal.?? Respiratory: No respiratory distress.? Lung sounds clear to auscultation bilaterally?? Abdomen: Soft and non-tender. Normoactive bowel sounds. ? Genitourinary: Performed with bottle house quality control technician ED VALDO Vazquez, scrotal sac with areas of dry skin, cracked linear fissures, white yeast like discharge/buildup beneath the glans into the bilateral groin, pink/erythematous patches to entire periarea and surrounding rectum. Skin: Skin warm and dry.? Normal skin color.? Extremities: No lower extremity edema.? Neuro: Moves all extremities spontaneously. Sensation intact bilaterally. No motor deficits. Course Course Course Narrative: Patient is a 66-year-old male with a past medical history of hypertension, hyperlipidemia, diabetes, BPH, chronic lower extremity weakness who is predominantly wheelchair-bound. He was admitted to the hospital 02/03/2022 and discharged on 02/10/2022 after being treated for urinary tract infection, pneumonia, sepsis, rhabdo, acute pulmonary embolism, and a right upper lobe cavitary lesion. Today he presents for evaluation of discomfort to the genitalia secondary to an ongoing rash which he reports has been present for 2-3 weeks but is worsening. Physical exam concerning for candidal infection versus fungal, not consistent with Erwin's gangrene or cellulitis. He is currently prescribed a long course of Levaquin for urinary tract infection/pneumonia. Will prescribe Diflucan, and discussed plan of care for twice daily cleansing with soap and water, full and complete drying, and application of nystatin cream. Outpatient follow-up with primary care provider. Discussed worrisome signs and symptoms to return back to the emergency department for. MDM - Skin/Abscess/Foreign Bdy Medical Records Attestation: I reviewed the patient's medical records. Discharge Plan Discharge Clinical Impression: Genital candidiasis in male Patient Disposition: Home, Self-Care Additional Instructions: You have been given a 1 time dose of a medication called Diflucan. Your genital area should be cleansed twice daily with mild non scented soap and warm water. The area needs to be thoroughly dried. Please apply nystatin cream twice daily after cleansing and drying. Please contact your primary care provider and arrange for follow-up visit. Return to the emergency department any new or worsening symptoms or concerns. Prescriptions: New fluconazole [Diflucan] 150 mg tablet 150 mg PO ONCE Qty: 1 0RF nystatin 100,000 unit/gram cream 1 appl topical BID Qty: 30 0RF No [facility] atorvastatin 10 mg tablet 1 tab PO BEDTIME polyvinyl alcohol 1.4 % drops 1 drp ophthalmic (eye) QID PRN (Reason: Pain) glipizide 10 mg tablet 1 tab PO BID aspirin 81 mg tablet,delayed release (DR/EC) 1 tab PO BEDTIME tramadol 50 mg tablet 1 tab PO QID PRN (Reason: severe pain) tamsulosin 0.4 mg capsule 2 cap PO BEDTIME metformin 1,000 mg tablet 1 tab PO AC docusate sodium 100 mg capsule 1 cap PO BID omeprazole 20 mg capsule,delayed release(DR/EC) 1 cap PO DAILY lisinopril 5 mg tablet 1 tab PO DAILY Januvia 100 mg tablet 1 tab PO DAILY cholecalciferol (vitamin D3) [Vitamin D3] 50 mcg (2,000 unit) capsule 1 cap PO DAILY levofloxacin 750 mg Tablet 750 mg PO Q24H 28 Days Qty: 28 0RF Referrals: Physician,Unknown J [Primary Care Provider] - (Please contact your primary care provider to arrange for follow-up.) Print Language: Nicaraguan
== END 2022-02-15 11:41 | disposition home or self-care (01) ==
PROVIDERS: Emergency Provider Emergency Medicine
DX: B37.49 Other urogenital candidiasis (principal); I10 Essential (primary) hypertension; E11.9 Type 2 diabetes mellitus without complications; E78.5 Hyperlipidemia, unspecified; Z86.711 Personal history of pulmonary embolism; Z79.02 Long term (current) use of antithrombotics/antiplatelets; Z79.899 Other long term (current) drug therapy; Z79.82 Long term (current) use of aspirin; Z79.84 Long term (current) use of oral hypoglycemic drugs
CPT/HCPCS: 99283

== ENCOUNTER 2023-05-26 15:45 | Emergency (ER) | payer OTHER, SELFPAY ==
[2023-05-26 16:00] VITALS: BP 142/91; PULSE 88; O2SAT 98
--- NOTE | 2023-05-26 16:16 | ECG_ITS ---
Test Reason : WEAKNESS Blood Pressure : / mmHG Vent. Rate : 095 BPM Atrial Rate : 095 BPM P-R Int : 136 ms QRS Dur : 128 ms QT Int : 362 ms P-R-T Axes : 021 066 027 degrees QTc Int : 454 ms Normal sinus rhythm Non-specific intra-ventricular conduction block Abnormal ECG When compared with ECG of 03-FEB-2022 16:43, Non-specific intra-ventricular conduction block has replaced Right bundle branch block Referred By: Dang Benitez Electronically Signed By:JHONY MINAYA
[2023-05-26 16:17] VITALS: BP 133/87; PULSE 84; RESP 16; TEMP 37.1; O2SAT 98; BMI 27.4
--- NOTE | 2023-05-26 17:01 | ED.GENADULT ---
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 Otherwise, the patient himself denies any shortness of breath, chest pain, fever or chills, nausea or vomiting and patient also denies any abdominal discomfort. As per EMS they are bringing him in due to increased weakness (patient states he uses a motorized chair at baseline and does not walk) and urinary incontinence. Related Data Home Medications Medication Instructions Recorded Confirmed aspirin 81 mg tablet,delayed 1 tab PO BEDTIME 02/03/22 02/03/22 release atorvastatin 10 mg tablet 1 tab PO BEDTIME 02/03/22 02/03/22 cholecalciferol (vitamin D3) 50 1 cap PO DAILY 02/03/22 02/03/22 mcg (2,000 unit) capsule (Vitamin D3) docusate sodium 100 mg capsule 1 cap PO BID 02/03/22 02/03/22 glipizide 10 mg tablet 1 tab PO BID 02/03/22 02/03/22 lisinopril 5 mg tablet 1 tab PO DAILY 02/03/22 02/03/22 metformin 1,000 mg tablet 1 tab PO AC 02/03/22 02/03/22 omeprazole 20 mg capsule,delayed 1 cap PO DAILY 02/03/22 02/03/22 release polyvinyl alcohol 1.4 % eye drops 1 drp ophthalmic (eye) QID PRN Pain 02/03/22 02/03/22 sitagliptin phosphate 100 mg 1 tab PO DAILY 02/03/22 02/03/22 tablet (Januvia) tamsulosin 0.4 mg capsule 2 cap PO BEDTIME 02/03/22 02/03/22 tramadol 50 mg tablet 1 tab PO QID PRN severe pain 02/03/22 02/03/22 Previous Rx's Medication Instructions Recorded levofloxacin 750 mg tablet 750 mg PO Q24H 4 weeks #28 tabs 02/10/22 fluconazole 150 mg tablet 150 mg PO ONCE #1 tab 02/15/22 (Diflucan) nystatin 100,000 unit/gram topical 1 appl topical BID #30 grams 02/15/22 cream cefdinir 300 mg capsule 300 mg PO BID 7 days #14 caps 05/26/23 Allergies Allergy/AdvReac Type Severity Reaction Status Date / Time No Known Allergies Allergy Unverified 03/08/20 16:45 Review of Systems Review of Systems: Pertinent positives and negatives as stated in [facility] Past Medical History Source: nursing notes reviewed Social History Social History Housing: Apartment Alcohol intake: current Alcohol intake frequency: a few times a week Patient Tobacco Use Status: Tobacco use Unknown Smoked in Last 30 Days: Yes Use of substances other than those prescribed or required for medical reasons: No Advance Directives: No Advance Directives on File: No service: No Current occupational status: disabled Physical Exam ED Vital Signs: Vital Signs - 24 hr 05/26/23 16:17 05/26/23 17:24 05/26/23 19:22 Temperature 98.8 F 98.1 F Pulse Rate 84 86 98 Respiratory Rate 16 16 20 Blood Pressure 133/87 148/88 H 147/92 H Pulse Oximetry 98 98 98 Oxygen Delivery Method Room Air Room Air Room Air BMI result Body Mass Index 27.4 VITAL SIGNS: Reviewed. GENERAL: Well developed, well nourished, in no acute distress. HEAD: Normocephalic/atraumatic EYES: PERRLA, EOMI EARS: Ext canals without abnormality, TMs non-bulging and non-erythematous NOSE: Nares patent bilateral OROPHARYNX: no oral lesions noted, posterior pharynx clear NECK: Supple, no adenopathy LUNGS: Normal breath sounds. No adventitious sounds or accessory muscle use. SpO2<98> CARDIOVASCULAR: Regular rate and rhythm without noted murmurs ABDOMEN: Soft, non-tender, non-distended with bowel sounds. MUSCULOSKELETAL: No tenderness, deformities, or effusions noted on gross inspection. EXTREMITIES: No cyanosis, clubbing or edema. SKIN: Inspection of the skin reveals no rashes NEUROLOGIC: Alert and oriented x 3. Strength and sensation to light touch were grossly intact x 4. Medications Administered Discontinued Medications Generic Name Dose Route Start Last Admin Trade Name Freq PRN Reason Stop Dose Admin Ceftriaxone Sodium 1 gm/ 50 mls @ 100 mls/hr 05/26/23 18:32 05/26/23 19:14 Sodium Chloride IV 05/26/23 19:01 Infused ONCE ONE Infusion Medical Decision Making Medical Decision Making [facility] Narrative: 1635: 67-year-old male with history and clinical presentation of being wheelchair-bound at baseline, DDX: Will rule out infection, anemia, electrolyte derangements. Also, will need to obtain collateral information in terms of who cares for patient at home. 1832: Remaining lab work still pending but urine looks infected, will give antibiotics. I do suspect that patient is retaining urine likely secondary to enlarged prostate but patient is adamantly declining any placement of a Reich catheter. I plan to discharge him home on remaining course of antibiotics with a Urology referral. I reviewed all investigations and hematologic indices are negative for leukocytosis but there is a noted left shift, otherwise there is no anemia or thrombocytopenia. Chemistry indices are grossly within normal limits with the exception of a mildly elevated glucose level without evidence to suggest DKA or HHS. There is no demonstrated GINA her electrolytes/liver enzyme derangements. Urinalysis is significant for UTI. Postvoid residual of the patient was over 200 cc but again patient is declining the placement of any catheter at this time. Patient is otherwise stable and will be discharged home in stable condition with remaining course of antibiotics as well as a referral to follow-up with urology. Differential Diagnosis Differential Diagnoses: The differential diagnosis associated with the presentation includes Please see the discussion above Admission/Observation Consideration of admission/observation: Escalation of care including admission/observation considered Please see the discussion above Lab Data [facility] Lab Attestation statement: I reviewed the patient's lab results. Please see the discussion above 05/26/23 18:10 05/26/23 18:10 Labs: Lab Results 05/26/23 05/26/23 Range/Units 18:10 19:24 WBC 7.3 (4.8-10.8) X10*3/uL RBC 4.81 D (4.60-5.80) X10*6/uL Hgb 14.5 D (14.0-18.0) g/dl Hct 41.9 L D (42.0-52.0) % MCV 87.1 (80.0-98.0) fL MCH 30.1 (27.0-33.0) pg MCHC 34.6 (31.0-36.0) g/dl RDW 12.4 (11.0-16.0) % Plt Count 316 D (160-400) X10*3/uL MPV 10.3 (9.4-12.4) fL Immature Gran % (Auto) 0.5 H (0.0-0.4) % Neut % (Auto) 79.8 H (45-73) % Lymph % (Auto) 10.0 L (20-40) % [place] % (Auto) 7.8 (2-11) % Eos % (Auto) 1.2 (0-4) % Baso % (Auto) 0.7 (0-2) % Lymph # (Auto) 0.7 L (1.2-4.9) X10*3/uL [place] # (Auto) 0.6 (0.1-1.2) X10*3/uL Eos # (Auto) 0.1 (0.0-0.4) X10*3/uL Baso # (Auto) 0.1 (0.0-0.2) X10*3/uL Abs Immat Gran (auto) 0.04 H (0.00-0.03) X10*3/uL Absolute Neuts (auto) 5.8 (2.0-8.3) x10*3/uL Absolute Nucleated RBC 0.000 (0.0-0.012) X10*3/uL Nucleated RBC % (auto) 0.0 (0.0-0.2) /100WBC Sodium 136 (135-145) mmol/L Potassium 4.2 D (3.3-5.1) mmol/L Chloride 98 (96-108) mmol/L Carbon Dioxide 28 (22-29) mmol/L Anion Gap 14 (12-20) BUN 16 (9-16) mg/dL Creatinine 0.94 (0.5-1.4) mg/dL Estim Creat Clear Calc 74.7 Estimated GFR > 60 Random Glucose 220 H (60-115) mg/dL Lactic Acid 1.8 (0.5-2.0) mmol/L Calcium 9.6 D (8.4-10.2) mg/dL Total Bilirubin 0.6 (0.0-1.0) mg/dL AST 16 (5-37) U/L ALT 16 (0-40) U/L Alkaline Phosphatase 106 (39-117) U/L Total Protein 8.2 H (6.5-8.0) g/dL Albumin 4.2 (3.5-5.0) g/dL Urine Color Yellow Urine Appearance Clear Urine pH 5.5 (5.0-9.0) Ur Specific [place] >= 1.030 H (1.005-1.025) Urine Protein Trace (Neg-Trace) mg/dL Urine Glucose (UA) >=1000 H (Negative) mg/dL Urine Ketones 15 (Negative) mg/dL Urine Blood Trace H (Negative) Urine Nitrite Positive H (Negative) Ur Leukocyte Esterase Negative (Negative) Urine RBC 0-2 (0-2) /HPF Urine WBC 6-10 H (0-5) /HPF Ur Squamous Epith Cells 0-2 (0-2) /HPF Urine Bacteria 4+ (None Seen) Hyaline Casts 0-2 (0-2) /LPF Independent Interpretation I performed an independent interpretation of an: EKG Interpretation: Normal sinus rhythm, HR-95, no STEMI, ME/QTC are within normal limits, QRS-128 External Record Review External record reviewed: Outpatient record, Prior outpatient labs and Prior outpatient radiology Chronic Conditions Patient?s care impacted by: Diabetes and Hypertension Critical Care Time Critical Care Time Critical Care Time: Yes Total Critical Care Time: 30 Attestation: I personally attest to this time spent taking care of the patient. Discharge Plan Discharge Clinical Impression: Acute UTI, Urinary retention Patient Disposition: Home, Self-Care Instructions: Urinary Retention in Men (ED), Urinary Tract Infection in Men (ED) Additional Instructions: 1. Reanudar todos los medicamentos caseros seg?n lo recetado. 2. Complete el tratamiento con antibi?ticos seg?n lo prescrito. 3. Le latham remitido para un seguimiento con urolog?a y debe llamar al consultorio por la ma?king para programar ruslan erasmo para ruslan reevaluaci?n y un tratamiento ambulatorio adicional. 4. Por favor basia un seguimiento con cool m?dico de atenci?n primaria. Regrese a la sepideh de emergencias si los s?ntomas empeoran. 1. Resume all home medications as prescribed. 2. Complete the course of antibiotics as prescribed. 3. You have been given a referral to follow-up with urology and should call the office in the morning to set up an appointment for re-evaluation and further outpatient management. 4. Please follow-up with primary care doctor. Return to the ER for any worsening symptoms. Prescriptions: New cefdinir 300 mg capsule 300 mg PO BID 7 Days Qty: 14 0RF No Action atorvastatin 10 mg tablet 1 tab PO BEDTIME polyvinyl alcohol 1.4 % drops 1 drp ophthalmic (eye) QID PRN (Reason: Pain) glipizide 10 mg tablet 1 tab PO BID aspirin 81 mg tablet,delayed release (DR/EC) 1 tab PO BEDTIME tramadol 50 mg tablet 1 tab PO QID PRN (Reason: severe pain) tamsulosin 0.4 mg capsule 2 cap PO BEDTIME metformin 1,000 mg tablet 1 tab PO AC docusate sodium 100 mg capsule 1 cap PO BID omeprazole 20 mg capsule,delayed release(DR/EC) 1 cap PO DAILY lisinopril 5 mg tablet 1 tab PO DAILY Januvia 100 mg tablet 1 tab PO DAILY cholecalciferol (vitamin D3) [Vitamin D3] 50 mcg (2,000 unit) capsule 1 cap PO DAILY levofloxacin 750 mg Tablet 750 mg PO Q24H 28 Days Qty: 28 0RF fluconazole [Diflucan] 150 mg tablet 150 mg PO ONCE Qty: 1 0RF nystatin 100,000 unit/gram cream 1 appl topical BID Qty: 30 0RF Referrals: Chaparrita Bryant MD [Physician] - Print Language: Citizen Of [place]
[2023-05-26 17:24] VITALS: BP 148/88; PULSE 86; RESP 16; O2SAT 98
--- NOTE | 2023-05-26 17:35 | PC.NURSE ---
pre-bladder scan = 469mL. post-void residual = 235mL. pt refusing straight catheterization at this time. provider notified/aware. bladder distended/tender to touch. pt seemingly uncomfortably at this time. pt c/o 12/29 abdominal pain. pt also complains of bilateral foot pain. unknown cause/causing him difficulty to ambulate.
--- NOTE | 2023-05-26 18:01 | PC.NURSE ---
pt incontinent of urine and stool. this RN and myron dalal changed/cleaned pt. pt changed into hospital attire/repositioned to comfort. tech bedside obtaining labs and sending at this time.
[2023-05-26 18:22] LABS: MANUAL DIFF FLAG NO
[2023-05-26 18:36] LABS: Lactic Acid 1.8 mmol/L (0.5-2.0)
[2023-05-26 18:40] LABS: Alanine Aminotransferase 16 U/L (0-40); Albumin Level 4.2 g/dL (3.5-5.0); Alkaline Phosphatase 106 U/L (39-117); Anion Gap 14 (12-20); Aspartate Amino Transferase 16 U/L (5-37); Bilirubin Total 0.6 mg/dL (0.0-1.0); Blood Urea Nitrogen 16 mg/dL (9-16); Calcium 9.6 mg/dL (8.4-10.2); Carbon Dioxide 28 mmol/L (22-29); Chloride 98 mmol/L (96-108); Creatinine Clr Calc Pharmacy 74.7; Estimated Glomerular Filt Rate > 60; Glucose Random 220 mg/dL (60-115); Potassium 4.2 mmol/L (3.3-5.1); Sodium 136 mmol/L (135-145); Total Protein 8.2 g/dL (6.5-8.0)
[2023-05-26] MEDS: cefTRIAXone sodium 1 GM in 0.9 % Sodium Chloride 50 ML IV (18:44)
--- NOTE | 2023-05-26 18:46 | PC.NURSE ---
20gIV placed in the left AC w/o difficulty - medication administered per provider order.
[2023-05-26 18:48] LABS: Basophils Absolute Auto 0.1 X10*3/uL (0.0-0.2); Basophils Percent Auto 0.7 % (0-2); Eosinophils Absolute Auto 0.1 X10*3/uL (0.0-0.4); Eosinophils Percent Auto 1.2 % (0-4); Hematocrit 41.9 % (42.0-52.0); Hemoglobin 14.5 g/dl (14.0-18.0); Imm Gran Abs Auto 0.04 X10*3/uL (0.00-0.03); Imm Gran Pct Auto 0.5 % (0.0-0.4); Lymphocytes Absolute Auto 0.7 X10*3/uL (1.2-4.9); Mean Corpuscular HGB Conc 34.6 g/dl (31.0-36.0); Mean Corpuscular Hemoglobin 30.1 pg (27.0-33.0); Mean Corpuscular Volume 87.1 fL (80.0-98.0); Mean Platelet Volume 10.3 fL (9.4-12.4); Monocytes Absolute Auto 0.6 X10*3/uL (0.1-1.2); Monocytes Percent Auto 7.8 % (2-11); Neutrophils Absolute Auto 5.8 x10*3/uL (2.0-8.3); Neutrophils Percent Auto 79.8 % (45-73); Platelet Count 316 X10*3/uL (160-400); Red Blood Count 4.81 X10*6/uL (4.60-5.80); Red Cell Distribution Width 12.4 % (11.0-16.0); White Blood Count 7.3 X10*3/uL (4.8-10.8)
[2023-05-26 19:22] VITALS: BP 147/92; PULSE 98; RESP 20; TEMP 36.7; O2SAT 98
--- NOTE | 2023-05-26 19:25 | MHC.EDTECH ---
This tech assumed care of patient at 1900, hourly rounds and vitals completed, Patient urinated 250MLS in urinal ,Urine sample obtained and sent to lab.Call de dios within reach
[2023-05-26 19:35] LABS: Appearance Urine Clear; Color Urine Yellow; Glucose Urine UA >=1000 mg/dL (Negative); Leukocyte Esterase Urine Negative (Negative); Nitrite Urine Positive (Negative); PH 5.5 (5.0-9.0); Specific Gravity - Urine >= 1.030 (1.005-1.025); UMIC TRIGGER UACC YES; Urine Blood Trace (Negative); Urine Ketones 15 mg/dL (Negative); Urine Protein Trace mg/dL (Neg-Trace)
[2023-05-26 19:48] LABS: Bacteria Urine 4+ (None Seen); Hyaline Casts Urine 0-2 /LPF (0-2); RBC Urine 0-2 /HPF (0-2); Squamous Epithelial Cell Urine 0-2 /HPF (0-2); UACC Culture Trigger YES
--- NOTE | 2023-05-26 20:36 | PC.NURSE ---
pt awaiting transportation via S at this time.
--- NOTE | 2023-05-26 20:56 | PC.NURSE ---
report given to EMS transport. pt leaving facility at this time.
== END 2023-05-26 20:58 | disposition home or self-care (01) ==
PROVIDERS: Emergency Provider Student in an Organized Health Care Education/Training Program
DX: N39.0 Urinary tract infection, site not specified (principal); R33.9 Retention of urine, unspecified; R53.1 Weakness; R53.83 Other fatigue; R94.31 Abnormal electrocardiogram [ECG] [EKG]; Z79.899 Other long term (current) drug therapy
CPT/HCPCS: 36415; 51701; 51798; 80053; 81001; 83605; 85025; 87040; 87086; 93005; 96365; 99284; 99285; J0696

== ENCOUNTER → 2023-05-26 16:16 | Outpatient (BNV) | payer OTHER, SELFPAY | PROVIDERS: Emergency Provider Student in an Organized Health Care Education/Training Program; Visit Provider Internal Medicine | DX: I45.9 Conduction disorder, unspecified (principal); R94.31 Abnormal electrocardiogram [ECG] [EKG] | CPT/HCPCS: 93010 ==

== ENCOUNTER 2023-06-25 19:18 | Emergency (ER) | payer OTHER, SELFPAY ==
[2023-06-25 19:50] VITALS: BP 155/80; BP 172/118; PULSE 76; PULSE 81; TEMP 36.2; O2SAT 99; BMI 36.5
[2023-06-25 23:36] VITALS: BP 149/89; PULSE 82; RESP 16; TEMP 36.7; O2SAT 100
[2023-06-26 03:52] VITALS: BP 135/90; PULSE 86; RESP 18; TEMP 36.8; O2SAT 99
--- NOTE | 2023-06-26 04:48 | ED.LOWEXIN ---
HPI - Extremity Injury (Lower) General Chief Complaint: Extremity Injury, Lower Stated Complaint: 9/10 leg pain in both legs,popped blisters on toes Time Seen by Provider: 06/26/23 04:29 Source: patient Mode of arrival: EMS Limitations: no limitations History of Present Illness HPI Narrative: Patient comes to the emergency room complaining of 1 week of bilateral toe pain and discoloration. Patient states that he saw his toes, thought they were dirty. However, when his SONAR WATCHSTANDER came to check on him today, noted that there was possible gangrene on both toes and patient was sent to the ED. Patient denies fever chills. Related Data Home Medications Medication Instructions Recorded Confirmed aspirin 81 mg tablet,delayed 1 tab PO BEDTIME 02/03/22 02/03/22 release atorvastatin 10 mg tablet 1 tab PO BEDTIME 02/03/22 02/03/22 cholecalciferol (vitamin D3) 50 1 cap PO DAILY 02/03/22 02/03/22 mcg (2,000 unit) capsule (Vitamin D3) docusate sodium 100 mg capsule 1 cap PO BID 02/03/22 02/03/22 glipizide 10 mg tablet 1 tab PO BID 02/03/22 02/03/22 lisinopril 5 mg tablet 1 tab PO DAILY 02/03/22 02/03/22 metformin 1,000 mg tablet 1 tab PO AC 02/03/22 02/03/22 omeprazole 20 mg capsule,delayed 1 cap PO DAILY 02/03/22 02/03/22 release polyvinyl alcohol 1.4 % eye drops 1 drp ophthalmic (eye) QID PRN Pain 02/03/22 02/03/22 sitagliptin phosphate 100 mg 1 tab PO DAILY 02/03/22 02/03/22 tablet (Januvia) tamsulosin 0.4 mg capsule 2 cap PO BEDTIME 02/03/22 02/03/22 tramadol 50 mg tablet 1 tab PO QID PRN severe pain 02/03/22 02/03/22 Previous Rx's Medication Instructions Recorded levofloxacin 750 mg tablet 750 mg PO Q24H 4 weeks #28 tabs 02/10/22 fluconazole 150 mg tablet 150 mg PO ONCE #1 tab 02/15/22 (Diflucan) nystatin 100,000 unit/gram topical 1 appl topical BID #30 grams 02/15/22 cream cefdinir 300 mg capsule 300 mg PO BID 7 days #14 caps 05/26/23 cephalexin 500 mg capsule 500 mg PO Q12H #19 caps 06/26/23 Allergies Allergy/AdvReac Type Severity Reaction Status Date / Time No Known Allergies Allergy Unverified 03/08/20 16:45 Review of Systems Review of Systems: Constitutional : No Weight loss, No Fever, No Chills, No Night Sweats, No Fatigue, No Malaise ENT/Mouth : No Hearing loss, No Ear Pain, No Nasal Congestion, No Sinus Pain, No Hoarseness, No sore throat, No Rhinorrhea, No Swallowing Difficulty Eyes: No Eye Pain, No Swelling, No Redness, No Foreign Body, No Discharge, No Vision Changes Cardiovascular : No Chest Pain, No SOB, No Dyspnea on Exertion, No Orthopnea, No Edema, No Palpitations Respiratory : No Cough, No Sputum, No Wheezing, No Smoke Exposure, No Dyspnea Gastrointestinal : No Nausea, No Vomiting, No Diarrhea, No Constipation, No abdominal Pain, No Hematochezia, No Melena Genitourinary : no irregular bleeding, No Dysuria, No Urinary Frequency, No Hematuria, No Urinary Incontinence, No Urgency, No Flank Pain, No Urinary Flow Changes, No Hesitancy Musculoskeletal : No joint pain, No Myalgias, No Joint Swelling Skin : Complaining of black blisters on toes Neuro : No Weakness, No Numbness, No Paresthesias, No Loss of Consciousness, No Dizziness, No Headache Psych : No Anxiety/Panic, No Depression, No SI/HI/AH/VH, No Social Issues, Heme/Lymph: No Bruising, No Bleeding,No Lymphadenopathy Endocrine : No Polyuria, No Polydipsia, No Temperature Intolerance PMFSH Past Medical History Onset Date is defined in the Problem List Problems that require an onset date and time if occurred within 24 hrs of arrival to the ED Aortic Dissection and Rupture; Neurologic impairment; Cardiopulmonary Arrest; Endotracheal Intubation; Insertion or Replacement of Mechanical Circulatory Assist Device Medical History (Updated 06/26/23 @ 07:09 by Rcuhi Mane MD) Hypertension Diabetes Pulmonary embolism Social History Social History Housing: Apartment Alcohol intake: current Alcohol intake frequency: a few times a week Alcohol type: beer Patient Tobacco Use Status: Tobacco use Unknown Smoked in Last 30 Days: Yes Use of substances other than those prescribed or required for medical reasons: No Advance Directives: No Advance Directives Information Provided: No service: No Current occupational status: disabled Physical Exam Vital Signs: Vital Signs: Last Vital Signs Temp 98.2 F 06/26/23 03:52 Pulse 85 06/26/23 06:30 Resp 15 06/26/23 06:30 BP 171/103 H 06/26/23 06:30 Pulse Ox 100 06/26/23 06:30 O2 Del Method Room Air 06/26/23 06:30 BMI result Body Mass Index 36.5 Const: Other: Appearance: Alert. Oriented X3. No acute distress. Eyes: Pupils equal, round and reactive to light. ENT: Pharynx normal. Neck: Normal inspection. Neck supple. No lymph nodes noted. No crepitus CVS: Normal heart rate and rhythm. Pulses normal. Normal S1 and S2 Respiratory: No respiratory distress. Breath sounds normal. No Wheezing. No rales Abdomen: Soft and nontender. No rigidity. No distention. Skin: Skin warm and dry. Normal skin color. Normal skin turgor. See extremity below Extremities: No lower extremity edema. No Lacerations. Patient's great toes have black and eschars, mildly discomfort to touch. Patient's bilateral lower extremities are very cold to touch. Neuro: Oriented X 3. No motor deficit. No sensory deficit. Moving all extremities. No slurred speech. CN 2 through 12 grossly intact Psych: calm, cooperative, normal affect Medical Decision Making Medical Decision Making [facility] Narrative: -my interpretation of labs, hematology and chemistry at baseline -I discussed the patient with Dr. Aguiar. Recommendations: Start cephalexin, duration 10 days, outpatient follow-up. -patient requesting to be seen by the case management team. Patient states that he has a SONAR WATCHSTANDER in the morning, requesting more care in the afternoon. Differential Diagnosis Differential Diagnoses: The differential diagnosis associated with the presentation includes (Cellulitis, blister, frostbite) Admission/Observation Consideration of admission/observation: Escalation of care including admission/observation considered (Given the appearance of patient's toes, patient was considered) Consult Healthcare Provider Management of the patient was discussed with: Tactical Response Group Officer Lab Data [facility] Lab Attestation statement: I reviewed the patient's lab results. 06/25/23 20:23 06/25/23 20:23 Labs: Lab Results 06/25/23 06/26/23 Range/Units 20:23 03:43 WBC 4.9 (4.8-10.8) X10*3/uL RBC 4.48 L (4.60-5.80) X10*6/uL Hgb 13.3 L (14.0-18.0) g/dl Hct 38.5 L (42.0-52.0) % MCV 85.9 (80.0-98.0) fL MCH 29.7 (27.0-33.0) pg MCHC 34.5 (31.0-36.0) g/dl RDW 12.8 (11.0-16.0) % Plt Count 249 (160-400) X10*3/uL MPV 9.7 (9.4-12.4) fL Immature Gran % (Auto) 0.2 (0.0-0.4) % Neut % (Auto) 63.4 (45-73) % Lymph % (Auto) 24.3 (20-40) % [place] % (Auto) 7.6 (2-11) % Eos % (Auto) 3.7 (0-4) % Baso % (Auto) 0.8 (0-2) % Lymph # (Auto) 1.2 (1.2-4.9) X10*3/uL [place] # (Auto) 0.4 (0.1-1.2) X10*3/uL Eos # (Auto) 0.2 (0.0-0.4) X10*3/uL Baso # (Auto) 0.0 (0.0-0.2) X10*3/uL Abs Immat Gran (auto) 0.01 (0.00-0.03) X10*3/uL Absolute Neuts (auto) 3.1 (2.0-8.3) x10*3/uL Absolute Nucleated RBC 0.000 (0.0-0.012) X10*3/uL Nucleated RBC % (auto) 0.0 (0.0-0.2) /100WBC ESR 19 H (0-15) MM/HR Sodium 137 (135-145) mmol/L Potassium 4.8 (3.3-5.1) mmol/L Chloride 101 (96-108) mmol/L Carbon Dioxide 26 (22-29) mmol/L Anion Gap 15 (12-20) BUN 10 (9-16) mg/dL Creatinine 1.21 (0.5-1.4) mg/dL Estim Creat Clear Calc 71.8 Estimated GFR 60 POC Glucose 288 H (60-115) mg/dL Random Glucose 354 H* (60-115) mg/dL Calcium 9.6 (8.4-10.2) mg/dL Total Bilirubin 0.4 (0.0-1.0) mg/dL AST 14 (5-37) U/L ALT 13 (0-40) U/L Alkaline Phosphatase 118 H (39-117) U/L C-Reactive Protein 0.46 (< or = 0.50) mg/dL Total Protein 8.2 H (6.5-8.0) g/dL Albumin 4.3 (3.5-5.0) g/dL Radiology Impression Discussion of test interpretation with radiology: I have reviewed the radiologist's reading. Radiologist Impression: US/US arterial duplex LE BI IMPRESSION: 1. There is no evidence of any hemodynamically significant lower extremity arterial disease by pressure, waveform or duplex Doppler criteria at rest. 2. Bilateral popliteal cysts with marked internal calcification. Critical Care Time Critical Care Time Critical Care Time: Yes Total Critical Care Time: 60 Attestation: I have personally provided critical care time. Time includes review of lab data, radiology results, discussion with consultants, and monitoring for potential decompensation. Intervention performed as documented. Discharge Plan Discharge Clinical Impression: Blisters of multiple sites Patient Disposition: Still a Patient Instructions: Blister (ED) Additional Instructions: Please follow-up with your primary care physician tomorrow. If you have any worsening or new symptoms, please return to the emergency room or call 911 Prescriptions: New cephalexin 500 mg capsule 500 mg PO Q12H Qty: 19 0RF No Action atorvastatin 10 mg tablet 1 tab PO BEDTIME polyvinyl alcohol 1.4 % drops 1 drp ophthalmic (eye) QID PRN (Reason: Pain) glipizide 10 mg tablet 1 tab PO BID aspirin 81 mg tablet,delayed release (DR/EC) 1 tab PO BEDTIME tramadol 50 mg tablet 1 tab PO QID PRN (Reason: severe pain) tamsulosin 0.4 mg capsule 2 cap PO BEDTIME metformin 1,000 mg tablet 1 tab PO AC docusate sodium 100 mg capsule 1 cap PO BID omeprazole 20 mg capsule,delayed release(DR/EC) 1 cap PO DAILY lisinopril 5 mg tablet 1 tab PO DAILY Januvia 100 mg tablet 1 tab PO DAILY cholecalciferol (vitamin D3) [Vitamin D3] 50 mcg (2,000 unit) capsule 1 cap PO DAILY levofloxacin 750 mg Tablet 750 mg PO Q24H 28 Days Qty: 28 0RF fluconazole [Diflucan] 150 mg tablet 150 mg PO ONCE Qty: 1 0RF nystatin 100,000 unit/gram cream 1 appl topical BID Qty: 30 0RF cefdinir 300 mg capsule 300 mg PO BID 7 Days Qty: 14 0RF Referrals: Mukesh Aguiar MD [Physician] - 06/29/23
--- NOTE | 2023-06-26 04:53 | PC.NURSE ---
Vital signs obtained, patient tachy P 110-111, patient's pulse has been 86-92 all night. BP 130/64, O2 95% on O2 at 2 LPM. Patient denies chest pain/dizziness/lightheadedness, napping comfortably. Dr. Us notified, no new orders at this time.
[2023-06-26 05:04] VITALS: BP 145/63; PULSE 75; RESP 16
[2023-06-26 06:30] VITALS: BP 171/103; PULSE 85; RESP 15; O2SAT 100
[2023-06-26 07:43] VITALS: BP 176/96; PULSE 82; RESP 16; TEMP 36.1; O2SAT 100
--- NOTE | 2023-06-26 07:46 | PC.NURSE ---
resting, calm. no diff breathing. talking well. denies sob/cp. foot discomfort r/t wounds- +pulses/csm.
--- NOTE | 2023-06-26 08:56 | MHC.CM.PN ---
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
[2023-06-26 09:57] VITALS: BP 131/65
--- NOTE | 2023-06-26 10:01 | PC.NURSE ---
this RN resumed care of pt at this time. pt no longer hypertensive post medication administration. abx administered per provider order. pt aware of plan of are in regards to d/c at this time. call de dios place within reach.
--- NOTE | 2023-06-26 11:06 | PC.NURSE ---
report given to kraig. pt now leaving facility via bls.
== END 2023-06-26 11:06 | disposition home or self-care (01) ==
PROVIDERS: Emergency Provider Emergency Medicine
DX: S90.821A Blister (nonthermal), right foot, initial encounter (principal); S90.822A Blister (nonthermal), left foot, initial encounter; L08.9 Local infection of the skin and subcutaneous tissue, unspecified; R60.0 Localized edema; X58.XXXA Exposure to other specified factors, initial encounter; Y93.9 Activity, unspecified; Y92.9 Unspecified place or not applicable; Y99.9 Unspecified external cause status; Z79.899 Other long term (current) drug therapy
CPT/HCPCS: 36415; 73620; 80053; 82947; 85025; 85652; 86140; 93925; 99284